=== PATIENT | female | born 1955 | race African-American/Black ===

== ENCOUNTER 2024-03-21 13:53 | Inpatient (IN) | payer BC, OTHER ==
[~2024-03-21] VITALS: Ht 152.4 cm; Wt 54.0 kg
[2024-03-21 14:36] LABS: Basophils # (auto) 0 10 ^3/uL (0-0.2); Basophils % (auto) 0.4 % (0.0-2.0); Eosinophils # (auto) 0.1 10 ^3/uL (0-0.8); Eosinophils % (auto) 0.7 % (0.0-7.0); Hematocrit 38.1 % (36.0-46.0); Hemoglobin 12.9 g/dL (12.2-16.2); Lymphocytes % (auto) 17.1 % (10.0-50.0); Mean Corpuscular Hemoglobin 31.7 pg (28.0-32.0); Mean Corpuscular Volume 93.3 fL (80.0-100.0); Monocytes % (auto) 8.6 % (0.0-12.0); Neutrophils # (auto) 8.5 10 ^3/uL (1.6-8.6); Neutrophils % (auto) 73.2 % (37.0-80.0); Nucleated Red Blood Cells % 0.1 %; Red Blood Cells 4.08 10^6/uL (4.0-5.20); Red Cell Distribution Width 13.4 % (11.8-14.3); White Blood Cell 11.7 10^3/uL (4.4-10.8)
[2024-03-21 14:58] LABS: Alanine Aminotransferase 18 U/L (7-40); Albumin 4.9 g/dL (3.2-4.8); Alkaline Phosphatase 108 U/L (46-116); Anion Gap 10 (5-15); Aspartate Aminotransferase 12 U/L (13-40); BUN/Creatinine Ratio 9.5 (10.0-20.0); Blood Urea Nitrogen 12 mg/dL (9-23); Calcium 11.3 mg/dL (8.7-10.4); Carbon Dioxide 23 mmol/L (20-30); Chloride 101 mmol/L (98-107); Glucose 120 mg/dL (74-106); Potassium 4.4 mmol/L (3.5-5.1); Sodium 134 mmol/L (136-145)
[2024-03-21 14:59] LABS: Bilirubin, Total 0.9 mg/dL (0.2-1.0); Total Protein 7.8 g/dL (5.7-8.2)
[2024-03-21 19:26] LABS: COVID19 ANTIGEN SOFIA FIA NEGATIVE (NEGATIVE)
[2024-03-21] MEDS ORDERED: HYDROcodone-ACET 5/325MG TAB PO PRN (19:45)
[2024-03-21] MEDS ORDERED: ONDANSETRON HCL 4 MG/2 ML VIAL IV PRN (19:45)
[2024-03-21] MEDS ORDERED: MORPHINE SULFATE INJ 2 MG/ml SYRG IV PRN (19:45)
[2024-03-21] MEDS ORDERED: ACETAMINOPHEN 325 MG TAB PO PRN (19:45)
[2024-03-21] MEDS ORDERED: DOCUSATE SOD 100 MG CAP PO PRN (19:45)
[2024-03-21] MEDS ORDERED: NITROGLYCERIN 0.4 MG SL TAB SL PRN (19:45)
[2024-03-21 20:00] VITALS: BP 121/52; PULSE 86; RESP 17; TEMP 98; O2SAT 100
[2024-03-21] MEDS: LACTATED RINGER'S 1,000 ML IV ONE (20:35)
[2024-03-21] MEDS: APIXABAN 5 MG TAB PO SCH (21:57)
[2024-03-21] MEDS: METOPROLOL TARTRATE 25 MG TAB PO SCH (21:57)
[2024-03-21] MEDS: SODIUM CHLOR 0.9% PF (SALINE LOCK) 10ML VIAL/SYR IV SCH (21:58)
[2024-03-21 22:06] VITALS: PULSE 86; RESP 20; O2SAT 96
[2024-03-22] VITALS (10 sets, daily range): BP systolic 93–157; BP diastolic 41–75; PULSE 71–84; RESP 14–19; TEMP 97.6–98; O2SAT 91–98
[2024-03-22] MEDS ORDERED: APIX5TAB PO (01:45)
[2024-03-22] MEDS ORDERED: SACU1TAB PO (01:45)
[2024-03-22] MEDS ORDERED: METO25TA5 PO (01:45)
[2024-03-22] MEDS ORDERED: MAGN400T40 PO (01:48)
[2024-03-22] MEDS ORDERED: BUSP5TAB51 PO (01:48)
[2024-03-22] MEDS ORDERED: SPIR25TA8 PO (01:48)
[2024-03-22 10:59] LABS: Basophils # (auto) 0 10 ^3/uL (0-0.2); Basophils % (auto) 0.4 % (0.0-2.0); Eosinophils # (auto) 0.1 10 ^3/uL (0-0.8); Eosinophils % (auto) 1.5 % (0.0-7.0); Hematocrit 35.5 % (36.0-46.0); Lymphocytes # (auto) 1.9 10 ^3/uL (0.4-5.4); Lymphocytes % (auto) 21.3 % (10.0-50.0); Mean Corpuscular Hemoglobin 32.2 pg (28.0-32.0); Mean Corpuscular Volume 94.8 fL (80.0-100.0); Monocytes # (auto) 0.8 10 ^3/uL (0-1.3); Monocytes % (auto) 9.2 % (0.0-12.0); Neutrophils # (auto) 6.1 10 ^3/uL (1.6-8.6); Neutrophils % (auto) 67.6 % (37.0-80.0); Red Blood Cells 3.74 10^6/uL (4.0-5.20); Red Cell Distribution Width 13.6 % (11.8-14.3)
[2024-03-22 11:04] LABS: Alanine Aminotransferase 14 U/L (7-40); Albumin 4.1 g/dL (3.2-4.8); Alkaline Phosphatase 89 U/L (46-116); Anion Gap 6 (5-15); Aspartate Aminotransferase 9 U/L (13-40); BUN/Creatinine Ratio 12.2 (10.0-20.0); Bilirubin, Total 0.6 mg/dL (0.2-1.0); Blood Urea Nitrogen 14 mg/dL (9-23); Calcium 10.6 mg/dL (8.7-10.4); Carbon Dioxide 26 mmol/L (20-30); Chloride 107 mmol/L (98-107); Glucose 125 mg/dL (74-106); Magnesium 1.9 mg/dL (1.6-2.6); Potassium 4.1 mmol/L (3.5-5.1); Sodium 139 mmol/L (136-145); Total Protein 6.6 g/dL (5.7-8.2)
[2024-03-22] MEDS: PANTOPRAZOLE 40 MG TAB PO ONE (15:06)
[2024-03-22 22:17] LABS: Basophils # (auto) 0 10 ^3/uL (0-0.2); Basophils % (auto) 0.3 % (0.0-2.0); Eosinophils # (auto) 0.2 10 ^3/uL (0-0.8); Eosinophils % (auto) 1.8 % (0.0-7.0); Hematocrit 35.7 % (36.0-46.0); Hemoglobin 11.8 g/dL (12.2-16.2); Lymphocytes # (auto) 2.6 10 ^3/uL (0.4-5.4); Mean Corpuscular Hemoglobin 31.8 pg (28.0-32.0); Mean Corpuscular Hgb Conc. 33.2 g/dL (32.0-36.0); Mean Corpuscular Volume 95.9 fL (80.0-100.0); Monocytes # (auto) 1.1 10 ^3/uL (0-1.3); Monocytes % (auto) 9.5 % (0.0-12.0); Neutrophils # (auto) 7.3 10 ^3/uL (1.6-8.6); Neutrophils % (auto) 65.4 % (37.0-80.0); Nucleated Red Blood Cells % 0.1 %; Red Blood Cells 3.72 10^6/uL (4.0-5.20); Red Cell Distribution Width 13.6 % (11.8-14.3); White Blood Cell 11.2 10^3/uL (4.4-10.8)
[2024-03-23 01:00] VITALS: BP 107/40; PULSE 70; RESP 20; TEMP 97.9; O2SAT 100
[2024-03-23 05:00] VITALS: BP 102/55; PULSE 66; RESP 20; TEMP 97.8; O2SAT 98
[2024-03-23] MEDS: PANTOPRAZOLE 40 MG TAB PO SCH (05:38)
[2024-03-23 06:53] LABS: Alanine Aminotransferase 12 U/L (7-40); Alkaline Phosphatase 92 U/L (46-116); Anion Gap 7 (5-15); Aspartate Aminotransferase 9 U/L (13-40); BUN/Creatinine Ratio 15.8 (10.0-20.0); Bilirubin, Total 0.5 mg/dL (0.2-1.0); Blood Urea Nitrogen 16 mg/dL (9-23); Calcium 10.5 mg/dL (8.7-10.4); Carbon Dioxide 25 mmol/L (20-30); Chloride 107 mmol/L (98-107); Glucose 106 mg/dL (74-106); Magnesium 1.9 mg/dL (1.6-2.6); Potassium 3.8 mmol/L (3.5-5.1); Sodium 139 mmol/L (136-145)
[2024-03-23 06:54] LABS: Total Protein 6.6 g/dL (5.7-8.2)
[2024-03-23 07:06] LABS: Free T4 (Free Thyroxine) 2.07 ng/dL (0.89-1.76)
[2024-03-23 07:07] LABS: T3 Total 1.16 ng/mL (0.60-1.81)
[2024-03-23 07:13] LABS: Basophils # (auto) 0 10 ^3/uL (0-0.2); Basophils % (auto) 0.4 % (0.0-2.0); Eosinophils # (auto) 0.2 10 ^3/uL (0-0.8); Eosinophils % (auto) 2.2 % (0.0-7.0); Hemoglobin 11.9 g/dL (12.2-16.2); Lymphocytes # (auto) 3.4 10 ^3/uL (0.4-5.4); Lymphocytes % (auto) 30.3 % (10.0-50.0); Mean Corpuscular Hemoglobin 32.1 pg (28.0-32.0); Mean Corpuscular Hgb Conc. 34.1 g/dL (32.0-36.0); Mean Corpuscular Volume 94.1 fL (80.0-100.0); Monocytes % (auto) 8.5 % (0.0-12.0); Neutrophils # (auto) 6.5 10 ^3/uL (1.6-8.6); Neutrophils % (auto) 58.6 % (37.0-80.0); Nucleated Red Blood Cells % 0.2 %; Red Blood Cells 3.72 10^6/uL (4.0-5.20); Red Cell Distribution Width 13.7 % (11.8-14.3); White Blood Cell 11.1 10^3/uL (4.4-10.8)
[2024-03-23] MEDS: MAGNESIUM SULFATE 1GM/100ML 100 ML IV ONE (08:09)
[2024-03-23 08:25] VITALS: PULSE 70; PULSE 71; RESP 16; O2SAT 99
[2024-03-23 09:00] VITALS: BP 96/60; PULSE 70; RESP 16; TEMP 97.5; O2SAT 99
[2024-03-23 13:42] VITALS: BP 100/33; PULSE 69; RESP 18; TEMP 98; O2SAT 98
[2024-03-23] MEDS: methIMAzole 5 MG TAB PO SCH (14:23)
[2024-03-23 15:50] VITALS: BP 100/33; PULSE 69; RESP 18; TEMP 98; O2SAT 98
[2024-03-23] MEDS ORDERED: METO25TA5 PO (16:28)
[2024-03-23] MEDS ORDERED: METH5TAB98 PO (16:28)
[2024-03-23] MEDS ORDERED: AUG875T PO (16:28)
== END 2024-03-23 16:20 | disposition home or self-care (01) | DRG 308 ==
LOC: ER 13:53 → OVERFLOW 19:45 → EAST 23:43 → TELE-EAST 03-23 03:44
PROVIDERS: ADMIT Internal Medicine Geriatric Medicine; ATTEND Internal Medicine Geriatric Medicine
DX: I48.20 Chronic atrial fibrillation, unspecified (principal); N17.0 Acute kidney failure with tubular necrosis; I24.9 Acute ischemic heart disease, unspecified; I50.22 Chronic systolic (congestive) heart failure; E05.90 Thyrotoxicosis, unspecified without thyrotoxic crisis or storm; I42.9 Cardiomyopathy, unspecified; Z20.822 Contact with and (suspected) exposure to COVID-19; I11.0 Hypertensive heart disease with heart failure; K21.9 Gastro-esophageal reflux disease without esophagitis; Z90.49 Acquired absence of other specified parts of digestive tract; Z83.3 Family history of diabetes mellitus; Z80.9 Family history of malignant neoplasm, unspecified; Z79.01 Long term (current) use of anticoagulants; Z95.810 Presence of automatic (implantable) cardiac defibrillator
CPT/HCPCS: 36415; 71046; 76536; 80053; 83735; 84439; 84443; 84480; 84484; 85025; 87081; 87426; 93005; 93306; 96360; G0378

== ENCOUNTER 2024-03-31 13:03 | Inpatient (IN) | payer BC ==
[~2024-03-31] VITALS: Ht 152.4 cm; Wt 55.4 kg
[~2024-03-31 13:03] MED LIST: APIX5TAB PO; AUG875T PO; BUSP5TAB51 PO; MAGN400T40 PO; METH5TAB98 PO; METO25TA5 PO; SACU1TAB PO; SPIR25TA8 PO
[2024-03-31 13:34] LABS: Urine Bacteria FEW /hpf (None Seen); Urine Blood Negative /uL (Negative); Urine Budding Yeast OCCASIONAL /hpf (None Seen); Urine Clarity Hazy (Clear); Urine Color Yellow (Yellow); Urine Hyaline Cast FEW /lpf (0 - 2); Urine Protein, UAD TRACE (Negative); Urine Specific Gravity 1.018 (1.001-1.035); Urine Urobilinogen Normal (Negative); Urine WBC 5 /hpf (0 - 5)
[2024-03-31 14:17] VITALS: PULSE 69; RESP 17; O2SAT 98
[2024-03-31 14:26] LABS: Basophils # (auto) 0 10 ^3/uL (0-0.2); Basophils % (auto) 0.3 % (0.0-2.0); Eosinophils # (auto) 0 10 ^3/uL (0-0.8); Eosinophils % (auto) 0.1 % (0.0-7.0); Hematocrit 36.3 % (36.0-46.0); Hemoglobin 12.1 g/dL (12.2-16.2); Lymphocytes # (auto) 1.6 10 ^3/uL (0.4-5.4); Lymphocytes % (auto) 11.9 % (10.0-50.0); Mean Corpuscular Hemoglobin 31.4 pg (28.0-32.0); Mean Corpuscular Hgb Conc. 33.4 g/dL (32.0-36.0); Mean Corpuscular Volume 94.2 fL (80.0-100.0); Monocytes # (auto) 1.1 10 ^3/uL (0-1.3); Monocytes % (auto) 8.2 % (0.0-12.0); Neutrophils # (auto) 10.6 10 ^3/uL (1.6-8.6); Neutrophils % (auto) 79.5 % (37.0-80.0); Platelet Count (auto) 235 10^3/uL (140-450); Red Blood Cells 3.85 10^6/uL (4.0-5.20); Red Cell Distribution Width 13.3 % (11.8-14.3); White Blood Cell 13.4 10^3/uL (4.4-10.8)
[2024-03-31 14:39] LABS: Chloride 99 mmol/L (98-107); Potassium 4.7 mmol/L (3.5-5.1); Sodium 132 mmol/L (136-145)
[2024-03-31] MEDS: cefTRIAXone 1GM/50ML D5W 50 ML IV ONE (14:39)
[2024-03-31] MEDS: SODIUM CHLORIDE 0.9% 1,000 ML IV ONE ×2 (14:39→15:55)
[2024-03-31 14:40] LABS: Anion Gap 10 (5-15); Carbon Dioxide 23 mmol/L (20-30)
[2024-03-31 14:41] LABS: Calcium 10.9 mg/dL (8.7-10.4)
[2024-03-31 14:45] LABS: BUN/Creatinine Ratio 7.7 (10.0-20.0); Blood Urea Nitrogen 14 mg/dL (9-23); Glucose 138 mg/dL (74-106)
[2024-03-31] MEDS ORDERED: DOCUSATE SOD 100 MG CAP PO PRN (16:00)
[2024-03-31] MEDS ORDERED: ACETAMINOPHEN 325 MG TAB PO PRN (16:00)
[2024-03-31] MEDS ORDERED: HYDROmorphone HCL 2 MG/ML VL/or syr IV PRN (16:00)
[2024-03-31] MEDS: metroNIDAZOLE 500MG/100ML 100 ML IV SCH (16:26)
[2024-03-31 18:30] VITALS: BP 101/52; PULSE 73; RESP 20; TEMP 98.6; O2SAT 99
[2024-03-31 20:00] VITALS: O2SAT 99
[2024-03-31 21:00] VITALS: BP 90/50; PULSE 72; RESP 20; TEMP 98; O2SAT 99
[2024-03-31 22:00] VITALS: BP 101/53
[2024-03-31] MEDS: SODIUM CHLOR 0.9% PF (SALINE LOCK) 10ML VIAL/SYR IV SCH (22:00)
[2024-04-01 01:00] VITALS: BP 103/36; PULSE 66; RESP 19; TEMP 98.5; O2SAT 92
[2024-04-01 05:00] VITALS: BP 91/49; PULSE 66; RESP 20; TEMP 97.9; O2SAT 98
[2024-04-01 08:43] VITALS: BP 93/43; PULSE 63; RESP 14; TEMP 98.6; O2SAT 95
[2024-04-01] MEDS: ENOXAPARIN SOD 30 MG/0.3 ML SYRINGE SC SCH (09:00)
[2024-04-01] MEDS: FAMOTIDINE (10MG/ML) 2ML VL IV SCH (09:00)
[2024-04-01] MEDS ORDERED: ENOXAPARIN SOD 40 MG/0.4 ML SYRINGE SC SCH (10:00)
[2024-04-01 13:00] VITALS: BP 91/37; PULSE 62; RESP 14; TEMP 97.9; O2SAT 96
[2024-04-01 16:31] LABS: Basophils # (auto) 0 10 ^3/uL (0-0.2); Basophils % (auto) 0.4 % (0.0-2.0); Eosinophils # (auto) 0.1 10 ^3/uL (0-0.8); Eosinophils % (auto) 1.4 % (0.0-7.0); Hematocrit 32.6 % (36.0-46.0); Hemoglobin 10.8 g/dL (12.2-16.2); Lymphocytes # (auto) 2.4 10 ^3/uL (0.4-5.4); Lymphocytes % (auto) 30.8 % (10.0-50.0); Mean Corpuscular Hemoglobin 31.5 pg (28.0-32.0); Mean Corpuscular Hgb Conc. 33.2 g/dL (32.0-36.0); Mean Corpuscular Volume 94.8 fL (80.0-100.0); Monocytes # (auto) 0.9 10 ^3/uL (0-1.3); Monocytes % (auto) 11.4 % (0.0-12.0); Neutrophils # (auto) 4.4 10 ^3/uL (1.6-8.6); Nucleated Red Blood Cells % 0.1 %; Platelet Count (auto) 219 10^3/uL (140-450); Red Blood Cells 3.43 10^6/uL (4.0-5.20); Red Cell Distribution Width 13.3 % (11.8-14.3); White Blood Cell 7.9 10^3/uL (4.4-10.8)
[2024-04-01 16:48] LABS: Alanine Aminotransferase 20 U/L (7-40); Albumin 3.8 g/dL (3.2-4.8); Alkaline Phosphatase 84 U/L (46-116); Anion Gap 5 (5-15); Aspartate Aminotransferase 14 U/L (13-40); Calcium 9.9 mg/dL (8.7-10.4); Carbon Dioxide 24 mmol/L (20-30); Glucose 108 mg/dL (74-106); Potassium 4.1 mmol/L (3.5-5.1); Sodium 139 mmol/L (136-145)
[2024-04-01 16:50] LABS: Bilirubin, Total 0.3 mg/dL (0.2-1.0); Total Protein 6.2 g/dL (5.7-8.2)
[2024-04-01 16:52] LABS: BUN/Creatinine Ratio 5.4 (10.0-20.0); Blood Urea Nitrogen < 5 mg/dL (9-23); Chloride 110 mmol/L (98-107)
[2024-04-01 17:00] VITALS: BP 101/45; PULSE 66; RESP 14; TEMP 98.3; O2SAT 96
[2024-04-01] MEDS: PANTOPRAZOLE 40 MG/10 ML VIAL INJ IV STA (17:22)
[2024-04-01 21:00] VITALS: BP 105/45; PULSE 71; RESP 20; TEMP 98.4; O2SAT 95
[2024-04-01] MEDS: HYDROcodone-ACET 5/325MG TAB PO PRN (23:00)
[2024-04-01] MEDS: APIXABAN 5 MG TAB PO SCH (23:00)
[2024-04-02 01:00] VITALS: BP 100/50; PULSE 77; RESP 20; TEMP 98.1; O2SAT 96
[2024-04-02 05:00] VITALS: BP 100/49; PULSE 53; RESP 20; TEMP 98.8; O2SAT 97
[2024-04-02 07:10] LABS: Basophils # (auto) 0 10 ^3/uL (0-0.2); Basophils % (auto) 0.4 % (0.0-2.0); Eosinophils # (auto) 0.2 10 ^3/uL (0-0.8); Eosinophils % (auto) 2.5 % (0.0-7.0); Hematocrit 29.9 % (36.0-46.0); Hemoglobin 10.2 g/dL (12.2-16.2); Lymphocytes # (auto) 1.9 10 ^3/uL (0.4-5.4); Lymphocytes % (auto) 29.6 % (10.0-50.0); Mean Corpuscular Volume 94.1 fL (80.0-100.0); Monocytes # (auto) 0.9 10 ^3/uL (0-1.3); Monocytes % (auto) 13.5 % (0.0-12.0); Neutrophils # (auto) 3.5 10 ^3/uL (1.6-8.6); Nucleated Red Blood Cells % 0.1 %; Platelet Count (auto) 213 10^3/uL (140-450); Red Blood Cells 3.17 10^6/uL (4.0-5.20); Red Cell Distribution Width 13.5 % (11.8-14.3); White Blood Cell 6.5 10^3/uL (4.4-10.8)
[2024-04-02 07:28] LABS: Alanine Aminotransferase 17 U/L (7-40); Albumin 3.4 g/dL (3.2-4.8); Alkaline Phosphatase 73 U/L (46-116); Anion Gap 7 (5-15); Aspartate Aminotransferase 12 U/L (13-40); BUN/Creatinine Ratio 6.8 (10.0-20.0); Blood Urea Nitrogen 6 mg/dL (9-23); Calcium 9.9 mg/dL (8.7-10.4); Carbon Dioxide 23 mmol/L (20-30); Chloride 109 mmol/L (98-107); Glucose 83 mg/dL (74-106); Potassium 3.9 mmol/L (3.5-5.1); Sodium 139 mmol/L (136-145)
[2024-04-02 07:29] LABS: Bilirubin, Total 0.3 mg/dL (0.2-1.0); Total Protein 5.6 g/dL (5.7-8.2)
[2024-04-02 08:09] VITALS: RESP 16
[2024-04-02 09:00] VITALS: BP 94/42; PULSE 71; RESP 18; TEMP 97.9; O2SAT 98
[2024-04-02] MEDS: cefTRIAXone 1GM/50ML D5W 50 ML IV SCH (09:46)
[2024-04-02] MEDS: PANTOPRAZOLE 40 MG/10 ML VIAL INJ IV SCH (09:46)
[2024-04-02] MEDS: METOPROLOL TARTRATE 25 MG TAB PO SCH (09:47)
[2024-04-02] MEDS ORDERED: BUSP10TA90 PO (09:55)
[2024-04-02 13:18] VITALS: BP 103/61; PULSE 79; RESP 18; TEMP 98.3; O2SAT 97
[2024-04-02] MEDS: ONDANSETRON HCL 4 MG/2 ML VIAL IV PRN (13:25)
[2024-04-02 14:23] VITALS: BP 103/61; PULSE 71; TEMP 36.8
[2024-04-02] MEDS ORDERED: METR-344 PO (15:18)
[2024-04-02] MEDS ORDERED: ZOFR4T PO (15:18)
[2024-04-02] MEDS ORDERED: CIPR-173 PO (15:18)
== END 2024-04-02 15:40 | disposition home or self-care (01) | DRG 871 ==
LOC: ER 13:03 → OVERFLOW 16:00 → EAST 18:05
PROVIDERS: ADMIT Internal Medicine Pulmonary Disease; ATTEND Internal Medicine Pulmonary Disease
DX: A41.9 Sepsis, unspecified organism (principal); K85.90 Acute pancreatitis without necrosis or infection, unspecified; N17.0 Acute kidney failure with tubular necrosis; N39.0 Urinary tract infection, site not specified; K57.32 Diverticulitis of large intestine without perforation or abscess without bleeding; I50.20 Unspecified systolic (congestive) heart failure; I48.91 Unspecified atrial fibrillation; I11.0 Hypertensive heart disease with heart failure; K29.70 Gastritis, unspecified, without bleeding; E83.52 Hypercalcemia; K21.9 Gastro-esophageal reflux disease without esophagitis; E03.9 Hypothyroidism, unspecified; Z83.3 Family history of diabetes mellitus; Z90.49 Acquired absence of other specified parts of digestive tract; Z95.0 Presence of cardiac pacemaker; Z80.3 Family history of malignant neoplasm of breast
CPT/HCPCS: 36415; 71045; 74176; 80048; 80053; 81001; 83605; 85025; 87081; 87086; 93005; G0378; J2405; J2470; J3490

== ENCOUNTER 2024-04-28 08:36 | Inpatient (IN) | payer BC ==
[~2024-04-28] VITALS: Ht 152.4 cm; Wt 51.2 kg
[~2024-04-28 08:36] MED LIST changes: -AUG875T PO; +BUSP10TA90 PO; -BUSP5TAB51 PO; +CIPR-173 PO; -METH5TAB98 PO; +METR-344 PO; -SPIR25TA8 PO; +ZOFR4T PO
[2024-04-28 09:24] LABS: Basophils # (auto) 0 10 ^3/uL (0-0.2); Basophils % (auto) 0.5 % (0.0-2.0); Eosinophils # (auto) 0.1 10 ^3/uL (0-0.8); Eosinophils % (auto) 0.9 % (0.0-7.0); Hematocrit 38.4 % (36.0-46.0); Hemoglobin 12.9 g/dL (12.2-16.2); Lymphocytes # (auto) 1.4 10 ^3/uL (0.4-5.4); Lymphocytes % (auto) 16.2 % (10.0-50.0); Mean Corpuscular Hemoglobin 32.5 pg (28.0-32.0); Mean Corpuscular Hgb Conc. 33.5 g/dL (32.0-36.0); Mean Corpuscular Volume 96.9 fL (80.0-100.0); Monocytes # (auto) 0.7 10 ^3/uL (0-1.3); Monocytes % (auto) 7.7 % (0.0-12.0); Neutrophils # (auto) 6.4 10 ^3/uL (1.6-8.6); Neutrophils % (auto) 74.7 % (37.0-80.0); Nucleated Red Blood Cells % 0.1 %; Platelet Count (auto) 177 10^3/uL (140-450); Red Blood Cells 3.96 10^6/uL (4.0-5.20); Red Cell Distribution Width 15.7 % (11.8-14.3); White Blood Cell 8.6 10^3/uL (4.4-10.8)
[2024-04-28 09:36] LABS: Urine Bacteria FEW /hpf (None Seen); Urine Blood Negative /uL (Negative); Urine Clarity Turbid (Clear); Urine Color Yellow (Yellow); Urine Hyaline Cast MOD /lpf (0 - 2); Urine Mucus FEW (None Seen); Urine Protein, UAD 1+ (Negative); Urine Specific Gravity 1.009 (1.001-1.035); Urine Urobilinogen Normal (Negative); Urine WBC 9 /hpf (0 - 5); Urine pH 5.5 (5.0-9.0)
[2024-04-28 09:46] LABS: Alanine Aminotransferase 25 U/L (7-40); Albumin 4.6 g/dL (3.2-4.8); Alkaline Phosphatase 76 U/L (46-116); Anion Gap 8 (5-15); Aspartate Aminotransferase 16 U/L (13-40); BUN/Creatinine Ratio 7.3 (10.0-20.0); Bilirubin, Total 1.1 mg/dL (0.2-1.0); Blood Urea Nitrogen 8 mg/dL (9-23); Calcium 11.2 mg/dL (8.7-10.4); Carbon Dioxide 24 mmol/L (20-30); Chloride 100 mmol/L (98-107); Glucose 132 mg/dL (74-106); Potassium 4.2 mmol/L (3.5-5.1); Sodium 132 mmol/L (136-145); Total Protein 7.6 g/dL (5.7-8.2)
[2024-04-28 10:54] LABS: Lipase 37 U/L (12-53)
[2024-04-28 12:17] VITALS: PULSE 97; RESP 16; O2SAT 99
[2024-04-28] MEDS: MECLIZINE HCL 25 MG TAB PO ONE (12:19)
[2024-04-28] MEDS: FUROSEMIDE 20 MG/2 ML VIAL IV ONE (16:49)
[2024-04-28] MEDS: DexAMETHasone SOD PHOS 4 MG/1ML SDV INJ IV ONE (16:49)
[2024-04-28] MEDS ORDERED: HYDROmorphone HCL 2 MG/ML VL/or syr IV PRN (17:15)
[2024-04-28] MEDS ORDERED: ACETAMINOPHEN 325 MG TAB PO PRN (17:15)
[2024-04-28 19:30] VITALS: PULSE 79; RESP 18; O2SAT 97
[2024-04-28] MEDS: APIXABAN 5 MG TAB PO SCH (22:24)
[2024-04-28] MEDS: busPIRone HCL 10 MG TAB PO SCH (22:24)
[2024-04-28] MEDS: SACUBITRIL-VALSARTAN 24mg/26mg TAB PO SCH (22:24)
[2024-04-28] MEDS: SODIUM CHLOR 0.9% PF (SALINE LOCK) 10ML VIAL/SYR IV SCH (22:24)
[2024-04-29] VITALS (9 sets, daily range): BP systolic 82–139; BP diastolic 44–70; PULSE 77–113; RESP 15–19; TEMP 97.7–98; O2SAT 94–100
[2024-04-29] MEDS: SODIUM CHLORIDE 0.9% 500 ML IV ONE (00:34)
[2024-04-29] MEDS: MIDODRINE HCL 10 MG TAB PO ONE (00:34)
[2024-04-29 06:42] LABS: Basophils # (auto) 0 10 ^3/uL (0-0.2); Basophils % (auto) 0.2 % (0.0-2.0); Eosinophils # (auto) 0 10 ^3/uL (0-0.8); Eosinophils % (auto) 0.1 % (0.0-7.0); Hematocrit 36.7 % (36.0-46.0); Hemoglobin 12.7 g/dL (12.2-16.2); Lymphocytes # (auto) 0.8 10 ^3/uL (0.4-5.4); Lymphocytes % (auto) 11.5 % (10.0-50.0); Mean Corpuscular Hemoglobin 33.4 pg (28.0-32.0); Mean Corpuscular Hgb Conc. 34.6 g/dL (32.0-36.0); Mean Corpuscular Volume 96.6 fL (80.0-100.0); Monocytes # (auto) 0.5 10 ^3/uL (0-1.3); Monocytes % (auto) 6.7 % (0.0-12.0); Neutrophils % (auto) 81.5 % (37.0-80.0); Nucleated Red Blood Cells % 0.1 %; Platelet Count (auto) 168 10^3/uL (140-450); Red Cell Distribution Width 15.5 % (11.8-14.3); White Blood Cell 7.3 10^3/uL (4.4-10.8)
[2024-04-29 06:52] LABS: Alanine Aminotransferase 15 U/L (7-40); Albumin 4.2 g/dL (3.2-4.8); Alkaline Phosphatase 73 U/L (46-116); Anion Gap 7 (5-15); Aspartate Aminotransferase 11 U/L (13-40); BUN/Creatinine Ratio 14.8 (10.0-20.0); Blood Urea Nitrogen 13 mg/dL (9-23); Carbon Dioxide 23 mmol/L (20-30); Chloride 107 mmol/L (98-107); Glucose 132 mg/dL (74-106); Sodium 137 mmol/L (136-145)
[2024-04-29 06:53] LABS: Bilirubin, Total 0.7 mg/dL (0.2-1.0)
[2024-04-29] MEDS: METOPROLOL TARTRATE 25 MG TAB PO SCH (08:48)
[2024-04-29] MEDS ORDERED: ENOXAPARIN SOD 40 MG/0.4 ML SYRINGE SC SCH (10:00)
[2024-04-29] MEDS: SODIUM CHLORIDE 0.9% 250 ML IV ONE (12:00)
[2024-04-30] VITALS (8 sets, daily range): BP systolic 90–112; BP diastolic 43–56; PULSE 70–90; RESP 16–19; TEMP 97.4–98.1; O2SAT 96–97
[2024-04-30 07:43] LABS: Basophils # (auto) 0 10 ^3/uL (0-0.2); Basophils % (auto) 0.4 % (0.0-2.0); Eosinophils # (auto) 0.1 10 ^3/uL (0-0.8); Eosinophils % (auto) 1.3 % (0.0-7.0); Hematocrit 34.8 % (36.0-46.0); Hemoglobin 12.1 g/dL (12.2-16.2); Lymphocytes # (auto) 3.1 10 ^3/uL (0.4-5.4); Lymphocytes % (auto) 30.1 % (10.0-50.0); Mean Corpuscular Hemoglobin 33.3 pg (28.0-32.0); Mean Corpuscular Hgb Conc. 34.7 g/dL (32.0-36.0); Mean Corpuscular Volume 95.8 fL (80.0-100.0); Monocytes # (auto) 0.8 10 ^3/uL (0-1.3); Monocytes % (auto) 7.3 % (0.0-12.0); Neutrophils # (auto) 6.3 10 ^3/uL (1.6-8.6); Neutrophils % (auto) 60.9 % (37.0-80.0); Nucleated Red Blood Cells % 0.3 %; Platelet Count (auto) 156 10^3/uL (140-450); Red Blood Cells 3.63 10^6/uL (4.0-5.20); Red Cell Distribution Width 15.7 % (11.8-14.3); White Blood Cell 10.4 10^3/uL (4.4-10.8)
[2024-04-30 07:54] LABS: Alanine Aminotransferase 13 U/L (7-40); Alkaline Phosphatase 64 U/L (46-116); Anion Gap 6 (5-15); Aspartate Aminotransferase 11 U/L (13-40); BUN/Creatinine Ratio 14.1 (10.0-20.0); Bilirubin, Total 0.5 mg/dL (0.2-1.0); Blood Urea Nitrogen 13 mg/dL (9-23); Calcium 10.4 mg/dL (8.7-10.4); Carbon Dioxide 25 mmol/L (20-30); Chloride 108 mmol/L (98-107); Glucose 106 mg/dL (74-106); Magnesium 1.8 mg/dL (1.6-2.6); Potassium 4.1 mmol/L (3.5-5.1); Sodium 139 mmol/L (136-145); Total Protein 6.4 g/dL (5.7-8.2)
[2024-04-30] MEDS: AMIODARONE HCL 200 MG TAB PO SCH (12:53)
[2024-04-30] MEDS: HYDROcodone-ACET 5/325MG TAB PO PRN (19:56)
[2024-04-30] MEDS: MAALOX PLUS or MAALOX 30 ML PO ONE (20:24)
[2024-05-01] VITALS (10 sets, daily range): BP systolic 94–116; BP diastolic 48–82; PULSE 77–98; RESP 14–20; TEMP 93.2–98.1; O2SAT 92–98
[2024-05-01 07:14] LABS: Basophils # (auto) 0 10 ^3/uL (0-0.2); Basophils % (auto) 0.4 % (0.0-2.0); Eosinophils # (auto) 0.2 10 ^3/uL (0-0.8); Eosinophils % (auto) 1.5 % (0.0-7.0); Hematocrit 37.5 % (36.0-46.0); Hemoglobin 12.7 g/dL (12.2-16.2); Lymphocytes # (auto) 1.8 10 ^3/uL (0.4-5.4); Lymphocytes % (auto) 16.1 % (10.0-50.0); Monocytes # (auto) 0.6 10 ^3/uL (0-1.3); Monocytes % (auto) 5.6 % (0.0-12.0); Neutrophils # (auto) 8.6 10 ^3/uL (1.6-8.6); Neutrophils % (auto) 76.4 % (37.0-80.0); Nucleated Red Blood Cells % 0.1 %; Platelet Count (auto) 161 10^3/uL (140-450); Red Blood Cells 3.86 10^6/uL (4.0-5.20); Red Cell Distribution Width 15.9 % (11.8-14.3); White Blood Cell 11.2 10^3/uL (4.4-10.8)
[2024-05-01 07:29] LABS: Alanine Aminotransferase 13 U/L (7-40); Albumin 4.2 g/dL (3.2-4.8); Alkaline Phosphatase 67 U/L (46-116); Anion Gap 5 (5-15); Aspartate Aminotransferase 11 U/L (13-40); BUN/Creatinine Ratio 11.8 (10.0-20.0); Blood Urea Nitrogen 11 mg/dL (9-23); Calcium 10.9 mg/dL (8.7-10.4); Carbon Dioxide 27 mmol/L (20-30); Chloride 106 mmol/L (98-107); Glucose 105 mg/dL (74-106); Magnesium 1.9 mg/dL (1.6-2.6); Potassium 4.1 mmol/L (3.5-5.1); Sodium 138 mmol/L (136-145)
[2024-05-01 07:30] LABS: Bilirubin, Total 0.5 mg/dL (0.2-1.0); Total Protein 6.8 g/dL (5.7-8.2)
[2024-05-01] MEDS: ONDANSETRON HCL 4 MG/2 ML VIAL IV PRN (08:35)
[2024-05-01] MEDS: DOCUSATE SOD 100 MG CAP PO PRN (08:41)
[2024-05-01] MEDS: CARVEDILOL 3.125 MG TAB PO SCH (09:54)
[2024-05-01] MEDS: AMIODARONE 450mg/250ml AE 250 ML IV SCH (12:28)
[2024-05-01] MEDS: MAALOX PLUS or MAALOX 30 ML PO PRN (20:16)
[2024-05-01] MEDS ORDERED: MORPHINE SULFATE INJ 2 MG/ml SYRG IV PRN (21:45)
[2024-05-02] VITALS (8 sets, daily range): BP systolic 85–114; BP diastolic 40–60; PULSE 71–107; RESP 14–20; TEMP 97.5–98.2; O2SAT 95–99
[2024-05-02 06:52] LABS: Basophils # (auto) 0 10 ^3/uL (0-0.2); Basophils % (auto) 0.3 % (0.0-2.0); Eosinophils # (auto) 0.1 10 ^3/uL (0-0.8); Eosinophils % (auto) 2.2 % (0.0-7.0); Hematocrit 36.9 % (36.0-46.0); Hemoglobin 12.4 g/dL (12.2-16.2); Lymphocytes # (auto) 1.3 10 ^3/uL (0.4-5.4); Lymphocytes % (auto) 19.8 % (10.0-50.0); Mean Corpuscular Hemoglobin 33.1 pg (28.0-32.0); Mean Corpuscular Hgb Conc. 33.7 g/dL (32.0-36.0); Mean Corpuscular Volume 98.3 fL (80.0-100.0); Monocytes # (auto) 0.6 10 ^3/uL (0-1.3); Monocytes % (auto) 9.5 % (0.0-12.0); Neutrophils # (auto) 4.3 10 ^3/uL (1.6-8.6); Neutrophils % (auto) 68.2 % (37.0-80.0); Nucleated Red Blood Cells % 0.3 %; Platelet Count (auto) 142 10^3/uL (140-450); Red Blood Cells 3.76 10^6/uL (4.0-5.20); Red Cell Distribution Width 15.8 % (11.8-14.3); White Blood Cell 6.3 10^3/uL (4.4-10.8)
[2024-05-02 07:09] LABS: Alanine Aminotransferase 23 U/L (7-40); Albumin 3.9 g/dL (3.2-4.8); Alkaline Phosphatase 80 U/L (46-116); Anion Gap 3 (5-15); Aspartate Aminotransferase 20 U/L (13-40); Blood Urea Nitrogen 10 mg/dL (9-23); Calcium 10.6 mg/dL (8.7-10.4); Carbon Dioxide 28 mmol/L (20-30); Chloride 105 mmol/L (98-107); Glucose 111 mg/dL (74-106); Potassium 4.5 mmol/L (3.5-5.1); Sodium 136 mmol/L (136-145)
[2024-05-02 07:10] LABS: Bilirubin, Total 0.7 mg/dL (0.2-1.0); Total Protein 6.3 g/dL (5.7-8.2)
[2024-05-02] MEDS: MAGNESIUM OXIDE 400 MG TAB PO SCH (12:58)
[2024-05-02] MEDS: AMIODARONE HCL 200 MG TAB PO SCH (22:13)
[2024-05-02] MEDS: AMIODARONE 450mg/250ml AE 250 ML IV SCH (23:00)
[2024-05-03 01:00] VITALS: BP 103/45; PULSE 88; RESP 16; TEMP 97.5; O2SAT 98
[2024-05-03 05:00] VITALS: BP 100/54; PULSE 81; RESP 16; TEMP 97.8; O2SAT 99
[2024-05-03 06:28] LABS: Basophils # (auto) 0 10 ^3/uL (0-0.2); Basophils % (auto) 0.4 % (0.0-2.0); Eosinophils # (auto) 0.2 10 ^3/uL (0-0.8); Eosinophils % (auto) 3.3 % (0.0-7.0); Hematocrit 36.9 % (36.0-46.0); Hemoglobin 12.6 g/dL (12.2-16.2); Lymphocytes # (auto) 1.8 10 ^3/uL (0.4-5.4); Lymphocytes % (auto) 25.4 % (10.0-50.0); Mean Corpuscular Hemoglobin 32.9 pg (28.0-32.0); Mean Corpuscular Hgb Conc. 34.1 g/dL (32.0-36.0); Mean Corpuscular Volume 96.6 fL (80.0-100.0); Monocytes # (auto) 0.7 10 ^3/uL (0-1.3); Monocytes % (auto) 10.4 % (0.0-12.0); Neutrophils # (auto) 4.3 10 ^3/uL (1.6-8.6); Neutrophils % (auto) 60.5 % (37.0-80.0); Nucleated Red Blood Cells % 0.2 %; Platelet Count (auto) 155 10^3/uL (140-450); Red Blood Cells 3.82 10^6/uL (4.0-5.20); Red Cell Distribution Width 15.5 % (11.8-14.3); White Blood Cell 7.2 10^3/uL (4.4-10.8)
[2024-05-03 06:31] LABS: Alanine Aminotransferase 15 U/L (7-40); Albumin 4.2 g/dL (3.2-4.8); Alkaline Phosphatase 92 U/L (46-116); Anion Gap 4 (5-15); Aspartate Aminotransferase 12 U/L (13-40); BUN/Creatinine Ratio 11.2 (10.0-20.0); Blood Urea Nitrogen 10 mg/dL (9-23); Calcium 10.7 mg/dL (8.7-10.4); Carbon Dioxide 27 mmol/L (20-30); Chloride 107 mmol/L (98-107); Glucose 108 mg/dL (74-106); Magnesium 2.3 mg/dL (1.6-2.6); Potassium 4.1 mmol/L (3.5-5.1); Sodium 138 mmol/L (136-145)
[2024-05-03 06:32] LABS: Bilirubin, Total 0.4 mg/dL (0.2-1.0); Total Protein 6.9 g/dL (5.7-8.2)
[2024-05-03 08:00] VITALS: PULSE 76
[2024-05-03 08:57] VITALS: BP 93/41; PULSE 78; RESP 20; TEMP 98.2; O2SAT 97
[2024-05-03 13:00] VITALS: BP 115/47; PULSE 79; RESP 20; TEMP 98.4; O2SAT 98
[2024-05-03] MEDS ORDERED: AMIO200T33 PO ×2 (13:08→13:09)
[2024-05-03] MEDS ORDERED: PANT40TA2 PO (13:09)
[2024-05-03 15:22] VITALS: BP 93/41; PULSE 78; TEMP 36.9
== END 2024-05-03 16:00 | disposition home or self-care (01) | DRG 308 ==
LOC: ER 08:36 → TELE 17:23 → TELE-EAST 04-29 03:20
PROVIDERS: ADMIT Internal Medicine; ATTEND Nurse Practitioner Acute Care
PROC: 4B02XTZ Measurement of Cardiac Defibrillator, External Approach (ICD-10-PCS; principal; 2024-05-02)
DX: I47.20 Ventricular tachycardia, unspecified (principal); I50.23 Acute on chronic systolic (congestive) heart failure; E11.21 Type 2 diabetes mellitus with diabetic nephropathy; E83.52 Hypercalcemia; I48.91 Unspecified atrial fibrillation; G43.909 Migraine, unspecified, not intractable, without status migrainosus; E03.9 Hypothyroidism, unspecified; E78.5 Hyperlipidemia, unspecified; I11.0 Hypertensive heart disease with heart failure; F41.9 Anxiety disorder, unspecified; Z83.3 Family history of diabetes mellitus; Z90.49 Acquired absence of other specified parts of digestive tract; Z95.0 Presence of cardiac pacemaker; Z80.3 Family history of malignant neoplasm of breast; Z82.0 Family history of epilepsy and other diseases of the nervous system
CPT/HCPCS: 36415; 70450; 71045; 74176; 80053; 81001; 82962; 83690; 83735; 84439; 84443; 84484; 85025; 93005; 93886; G0378; J1100; J2405

== ENCOUNTER 2025-07-05 19:02 | Emergency (ER) | payer BC, MEDICARE ==
[~2025-07-05] VITALS: Ht 152.4 cm; Wt 50.0 kg
[~2025-07-05 19:02] MED LIST changes: +AMIO200T33 PO; +BUSP15TA60 PO; +FLUT50SP NAS; +HYDR1CAP27 PO; +METO25TA93 PO; +PANT40TA2 PO; +SPIR25TA8 PO; +VALS1TAB56 PO
[2025-07-05 19:39] LABS: Hematocrit 39.2 % (36.0-46.0); Hemoglobin 13.3 g/dL (12.2-16.2); Mean Corpuscular Hemoglobin 32.4 pg (28.0-32.0); Mean Corpuscular Volume 95.8 fL (80.0-100.0); Nucleated Red Blood Cells % 0.1 %
[2025-07-05 19:46] LABS: Potassium 4.0 mmol/L (3.5-5.1); Sodium 139 mmol/L (136-145)
[2025-07-05 19:47] LABS: Anion Gap 11 (5-15); Carbon Dioxide 21 mmol/L (20-31)
[2025-07-05 19:52] LABS: BUN/Creatinine Ratio 14.4 (10.0-20.0); Blood Urea Nitrogen 20 mg/dL (9-23)
[2025-07-05 19:55] LABS: Calcium 10.8 mg/dL (8.7-10.4); Chloride 107 mmol/L (98-107); Glucose 149 mg/dL (74-106)
--- NOTE | 2025-07-05 20:12 | DVH ---
CHEST RADIOGRAPH Indication: PALPITATIONS Technique: 1 view Comparison: None available FINDINGS: Lines and Tubes: Left implanted cardiac pacer with biventricular leads projecting in expected position. Lungs/Pleura: No focal consolidation, pleural effusion or pneumothorax. Relative apical lucency of both lungs. Cardiomediastinum: Upper normal heart size. Central pulmonary vascular prominence. Aortic atherosclerosis. Other: No acute osseous abnormality. Right upper quadrant surgical clips. IMPRESSION: No acute cardiopulmonary abnormality. Suspected emphysema.
--- NOTE | 2025-07-05 20:31 | ED.PDOC ---
HPI Comments HPI: 69-year-old female who came to ER for palpitations. Patient does have history of AFib, does take her medications regularly, Eliquis, metoprolol. With the past week she has been experiencing palpitations that involves her left chest and left abdomen. Patient already has a special education science teacher to follow up with. Past Medical History: AFib, diverticulitis Past Surgical History: Pacemaker Social History: Denies Patient HPI: Poor Historian. REVIEW OF SYSTEMS: CONSTITUTIONAL: Denies acute: fever, diaphoresis, chills, generalized weakness. HEAD: Denies acute: headache, photophobia Eyes: Denies acute: Double vision, vision loss, eye pain, eye discharge. EARS: Denies acute: tinnitus, hearing loss, ear discharge, ear pain, THROAT: Denies acute: sore throat, swelling, difficulty swallowing , pain with swallowing, change in voice. NECK: Denies acute: neck pain, neck swelling, stiff neck. HEART: Denies acute : chest pain LUNGS: Denies acute: SOB, wheezing, cough, hemoptysis ABDOMEN: Denies acute: abdominal pain, Nausea, Vomiting, diarrhea, melena , hematemesis, hematochezia SKIN: Denies acute: rash, redness, lesions, itchiness. EXTREMITIES: Denies acute: calf pain, numbness, tingling, weakness, denies pain in extremity. Denies acute: Low back pain. Neuro: Denies acute: focal neurological deficit, motor or sensory focal neurological deficit, tremors, seizure like activity, confusion, dizziness, change in mental status, loss of bowel or bladder function, cauda equina like symptoms. : Denies acute: dysuria, hematuria, flank pain, increase in urinary frequency. PSYCH: Denies acute: hallucination, suicidal ideation, homicidal ideation. FEMALE: Denies acute: abnormal vaginal bleeding, foul odor, unusual discharge. PHYSICAL EXAM: General: ----no----acute distress, awake and alert. Head: normocephalic, atraumatic. No raccoon's eyes, no christianson sign. Neck: supple, trachea is midline, no swelling. Throat: Normal phonation. Eyes:, no erythema, no purulent discharge, no proptosis, no icterus. Heart: regular rate, regular rhythm, no significant murmur appreciated. Lungs: no apparent respiratory distress, Able to speak in full sentences. No wheezing, no rhonchi, no crackles. No stridors Clear to auscultation bilaterally. Abdomen: non tender to palpation, non distended, soft, no guarding, no rebound, + bowel sounds. Neuro: Awake, Alert, oriented to name, self, situation, follows commands GCS=15. Speech is normal. Skin: no petechia, no purpura, no cyanosis, non-pale, not jaundice. Lower extremities: --no - Pitting edema no deformity, no focal swelling, no calf TTP. Makes eye contact. moves all four extremities. Face: no apparent facial droop. Ambulating in the ED independently. ED COURSE: DISCLAIMER: This medical document was created using an electronic medical record system with voice recognition software and computerized dictation system. Although this document has been carefully reviewed, there might still be some phonetic and typographical errors. Occasional wrong-word or "sound-alike" substitutions may have occurred due to the inherent limitations of voice recognition software. These areas are purely typographical due to imperfections of the software programs and do not reflect any compromise in the patient's medical care. Please read the chart carefully and recognize, using context, where these substitutions have occurred. Chief Complaint: Palpitations Time Seen by MD: 20:40 Primary Care Provider: AVINASH Reviewed Notes: Nurses Notes, Allergies Allergies: Coded Allergies: NO KNOWN ALLERGIES (Unverified , 03/21/24) Home Meds Active Scripts Pantoprazole Sodium Sesquihydr (Protonix) 40 Mg Tab, 40 MG PO DAILY, #30 TAB Prov:ROSA MARIA HIGGINBOTHAM RENTAL MANAGEMENT TRAINEE 05/03/24 Amiodarone Hcl (Amiodarone Hcl) 200 Mg Tab, 400 MG PO BID for 7 Days, #28 TAB Amiodarone 400 mg p.o. twice a day x7 days then 400 mg p.o. daily Prov:ROSA MARIA HIGGINBOTHAM RENTAL MANAGEMENT TRAINEE 05/03/24 Amiodarone Hcl (Amiodarone Hcl) 200 Mg Tab, 400 MG PO DAILY for 30 Days, #60 TAB 1 Refill Please see other order for amiodarone. Patient was to receive one week course of 400 mg p.o. twice a day for seven days then followed by 400 daily Prov:ROSA MARIA HIGGINBOTHAM RENTAL MANAGEMENT TRAINEE 05/03/24 Ondansetron Odt 4MG Tab (ZOFRAN PO) 4 Mg Tb, 4 MG PO Q4HP PRN for 5 Days, #25 T AB ODT TAB-DISSOLVE IN MOUTH, THEN SWALLOW Prov:IGNACIA ENGEL RESIDENT 04/02/24 Metronidazole (Flagyl) 500 Mg Tab, 500 MG PO TID for 7 Days, #21 TAB Prov:IGNACIA ENGEL RESIDENT 04/02/24 Ciprofloxacin Hcl (Cipro) 500 Mg Tab, 1 TAB PO BID for 7 Days, #14 TAB Prov:IGNACIA ENGEL RESIDENT 04/02/24 Metoprolol Tartrate (Metoprolol Tartrate) 25 Mg Tab, 25 MG PO DAILY for 30 Days, #30 MG 2 Refills Prov:ROXANA WU RESIDENT 03/23/24 Reported Medications Buspirone Hcl (Buspirone Hcl) 10 Mg Tab, 10 MG PO Q12HR for 30 Days, MG 04/02/24 Magnesium Oxide (MAGNESIUM OXIDE) 400 Mg Tab, 1 TAB PO DAILY, #30 TAB 5 Refills 03/22/24 Sacubitril-Valsartan (Entresto 24-26 mg) 1 Tab Tab, 1 TAB PO BID, TAB 03/22/24 Apixaban Base (ELIQUIS) 5 Mg Tab, 5 MG PO BID, TAB 03/22/24 Information Source: Patient Mode of Arrival: Ambulatory Past Medical History PAST MEDICAL HISTORY: AFIB, Anxiety, CHF, DM, HTN, Thyroid Surgical History: Cholecystectomy, Pacemaker SEALING MACHINE OPERATOR History: Denies all SEALING MACHINE OPERATOR Hx Family History Family History: Family hx of DM, Family hx of Cancer Social History Smoker: Non-Smoker Alcohol: Denies ETOH Use Drugs: Denies Drug Use Lives In: Home EKG EKG : Pulse Rate (adult): 93 Cardiac Rhythm: Paced Was a procedure done? Was a procedure done?: No X-Ray, Labs, Meds, VS Vital Signs Date Time Temp Pulse Resp B/P (MAP) Pulse Ox O2 Delivery O2 Flow Rate FiO2 07/05/25 21:24 98.4 56 18 86/55 (65) 96 98.4 07/05/25 20:31 93 07/05/25 19:12 93 07/05/25 19:04 98.4 144 20 116/56 98 98.4 Lab Test 07/05/25 21:29 07/05/25 20:40 07/05/25 19:29 Range/Units Urine Color Light-yellow Yellow Urine Clarity Clear Clear Urine pH 5.0 5.0-9.0 Urine Specific [place] 1.009 1.001-1.035 Urine Protein Negative Negative Urine Ketones Negative Negative Urine Blood Negative Negative /uL Urine Nitrite Negative Negative Urine Bilirubin Negative Negative Urine Urobilinogen Normal Negative mg/dL Urine Leukocyte Esterase Negative Negative /uL Urine RBC None seen 0 - 4 /hpf Urine Microscopic WBC 1 0-5 /HPF Urine Squamous Epithelial Cells Few <5 /hpf Urine Bacteria None seen None Seen /hpf Urine Glucose 4+ H Normal mg/dL Troponin I High Sensitivity 7 5 </=34 ng/L White Blood Count 9.6 4.4-10.8 10^3/uL Red Blood Count 4.09 4.0-5.20 10^6/uL Hemoglobin 13.3 12.2-16.2 g/dL Hematocrit 39.2 36.0-46.0 % Mean Corpuscular Volume 95.8 80.0-100.0 fL Mean Corpuscular Hemoglobin 32.4 H 28.0-32.0 pg Mean Corpuscular Hemoglobin Concent 33.9 32.0-36.0 g/dL Red Cell Distribution Width 14.8 H 11.8-14.3 % Platelet Count 196 140-450 10^3/uL Mean Platelet Volume 9.7 6.9-10.8 fL Neutrophils (%) (Auto) 62.0 37.0-80.0 % Lymphocytes (%) (Auto) 27.7 10.0-50.0 % Monocytes (%) (Auto) 7.8 0.0-12.0 % Eosinophils (%) (Auto) 1.8 0.0-7.0 % Basophils (%) (Auto) 0.7 0.0-2.0 % Neutrophils # (Auto) 6.0 1.6-8.6 10 ^3/uL Lymphocytes # (Auto) 2.7 0.4-5.4 10 ^3/uL Monocytes # (Auto) 0.8 0-1.3 10 ^3/uL Eosinophils # (Auto) 0.2 0-0.8 10 ^3/uL Basophils # (Auto) 0.1 0-0.2 10 ^3/uL Nucleated Red Blood Cells 0.1 % Sodium Level 139 136-145 mmol/L Potassium Level 4.0 3.5-5.1 mmol/L Chloride Level 107 98-107 mmol/L Carbon Dioxide Level 21 20-31 mmol/L Anion Gap 11 5-15 Blood Urea Nitrogen 20 9-23 mg/dL Creatinine 1.39 H 0.550-1.02 mg/dL Glomerular Filtration Rate Calc 41 >90 mL/min BUN/Creatinine Ratio 14.4 10.0-20.0 Serum Glucose 149 H 74-106 mg/dL Calcium Level 10.8 H 8.7-10.4 mg/dL Magnesium Level 2.0 1.6-2.6 mg/dL [place] [id number] Ph: [phone] DIAGNOSTIC IMAGING Diagnostic Imaging Report : [id number] Signed PATIENT: BEREKET GARCIA ACCT: [id number] UNIT: [id number] : 1955 LOC: ER ROOM / BED: / AGE / SEX: 69 / F ADM STATUS: REG ER SERVICE 06 ORDERING PHYSICIAN: BRITTNY TREVIÑO DO PROCEDURE(s): CXR1 - CHEST XRAY 1 VIEW REASON: PALPITATIONS ORDER NUMBER(s): [id number], ACCESSION NUMBER(s): [id number] CHEST RADIOGRAPH Indication: PALPITATIONS Technique: 1 view Comparison: None available FINDINGS: Lines and Tubes: Left implanted cardiac pacer with biventricular leads projecting in expected position. Lungs/Pleura: No focal consolidation, pleural effusion or pneumothorax. Relative apical lucency of both lungs. Cardiomediastinum: Upper normal heart size. Central pulmonary vascular prominence. Aortic atherosclerosis. Other: No acute osseous abnormality. Right upper quadrant surgical clips. IMPRESSION: No acute cardiopulmonary abnormality. Suspected emphysema. ATED BY: KAMRON DUNN MD DICTATED DATE/TIME: 07/05/252009 SIGNED BY: KAMRON DUNN MD SIGNED DATE/TIME: 07/05/252009 CC: Time of 1ST Reevaluation: 20:20 Reevaluation 1ST: Unchanged Patient Education/Counseling: Diagnosis, Treatment Family Education/Counseling: No Family Present SEPSIS Sepsis Screen Date sepsis recognized/suspect: Jul 05, 2025 Time Sepsis recognized/suspect: 1904 Recent Procedure: No On Antibiotic Therapy: No Respiratory Rate >20: No Heart Rate >90: Yes Temp<36 C (96.8 F) or >38.3 C: No SBP <90 or MAP <65 mmHG: No New Acute Mental Status Change: No Is the patient on CPAP, BIPAP,: No Physician Orders Electrocardigram (07/05/25 19:07) Chest Xray 1 View (07/05/25 19:07) Electrocardigram (07/05/25 20:07) Electrocardigram (07/05/25 22:07) Vital Signs Date Time Temp Pulse Resp B/P (MAP) Pulse Ox O2 Delivery O2 Flow Rate FiO2 07/05/25 21:24 98.4 56 18 86/55 (65) 96 98.4 07/05/25 20:31 93 07/05/25 19:12 93 07/05/25 19:04 98.4 144 20 116/56 98 98.4 Laboratory Tests Test 07/05/25 19:29 White Blood Count 9.6 10^3/uL (4.4-10.8) Departure 1 Departure Time of Disposition: 00:09 Impression: Primary Impression: Palpitations Disposition: 01 HOME / SELF CARE / HOMELESS Condition: Stable Additional Instructions: Additional instructions: Please read all instructions provided in this packet carefully. You MUST follow-up with your primary care/family doctor in 1 to 2 days. If you are unable to see your primary care/family doctor, please return to our emergency room for re-assessment and re-evaluation in 1 to 2 days. Return to the emergency room here in our facility or to the nearest ER [facility] if your symptoms change or worsen. CONSULTATIONS: you MUST Follow-up for consultation as soon as possible with: Dr. govea in 1-2 days. Please call for appointment. You MUST call the consultants office yourself to make an appointment. You may need to arrange that through your insurance and/or your primary/family doctor. If you are unable to see the technology methodology consultant in 1 to 2 days, you must return to our emergency room (or any other ER of your choice) for re-assessment and re- evaluation. Adequate fluid hydration. Although you have been discharged from the Emergency Department, this does not mean that you have a "clean bill of health". No definitive diagnosis for your symptoms has been made today. It is possible that you are in the process of developing a serious illness. This is why you must return to the ED without fail if any new or worsening symptoms develop. Monitoring blood pressure at home at least 3 times a day. Discharged With: Self Critical Care Note Critical Care Time?: No Heart Score Heart Score: Heart Score Response (Comments) Value History Moderate Suspicious 1 EKG Repolarization Disturb 1 Age >65 2 Risk Factors 1 or 2 risk factors 1 Troponin Normal limit 0 Total 5 I personally scribed for BRITTNY TREVIÑO DO ([email or web address]) on 07/05/25 at 20:31. Electronically submitted by Benny Pastrana ([email or web address]). I personally scribed for BRITTNY TREVIÑO DO ([email or web address]) on 07/05/25 at 20:41. Electronically submitted by Benny Pastrana ([email or web address]). I personally scribed for BRITTNY TREVIÑO DO ([email or web address]) on 07/05/25 at 20:54. Electronically submitted by Benny Pastrana ([email or web address]). BRITTNY TREVIÑO DO Jul 05, 2025 20:31
[2025-07-05 23:53] LABS: Urine Protein, UAD Negative (Negative)
[2025-07-06 00:18] VITALS: BP 106/75; PULSE 60; RESP 18; TEMP 98.1; O2SAT 97
--- NOTE | 2025-07-08 09:30 | ECG ---
[facility] Test Date: 2025-07-05 Test Time: 19:11:18 Pat Name: BEREKET GARCIA Department: ED Room: Gender: F Garage Hand: ALEKSANDR : 1955 Requested By: BRITTNY TREVIÑO Order Number: [id number] Reading MD: Edilson Cline Measurements Intervals [place] Rate: 99 P: 0 LA: 132 QRS: 112 QRSD: 253 T: -63 QT: 462 QTc: 593 Interpretive Statements A-V dual-paced complexes w/ some inhibition No further analysis attempted due to paced rhythm Electronically Signed On 07-09-2025 17:46:23 PST by Edilson Cline Please click the below link to view image of tracing.
--- NOTE | 2025-07-08 09:31 | ECG ---
[facility] Test Date: 2025-07-05 Test Time: 19:12:27 Pat Name: BEREKET GARCIA Department: ED Room: Gender: F Auto Service Advisor: [place] : 1955 Requested By: BRITTNY TREVIÑO Order Number: [id number] Reading MD: Edilson Cline Measurements Intervals [place] Rate: 93 P: 0 FL: 96 QRS: 167 QRSD: 280 T: 98 QT: 600 QTc: 747 Interpretive Statements A-V dual-paced complexes w/ some inhibition No further analysis attempted due to paced rhythm Electronically Signed On 07-09-2025 17:46:28 PST by Edilson Cline Please click the below link to view image of tracing.
== END 2025-07-06 00:52 | disposition home or self-care (01) ==
LOC: ER 19:02
DX: R00.2 Palpitations (principal); I11.0 Hypertensive heart disease with heart failure; I50.9 Heart failure, unspecified; E11.9 Type 2 diabetes mellitus without complications; F41.9 Anxiety disorder, unspecified; I48.91 Unspecified atrial fibrillation; Z79.899 Other long term (current) drug therapy; Z95.0 Presence of cardiac pacemaker; Z90.49 Acquired absence of other specified parts of digestive tract; Z79.01 Long term (current) use of anticoagulants
CPT/HCPCS: 36415; 71045; 80048; 81001; 83735; 84484; 85025; 93005

== ENCOUNTER 2025-07-06 03:44 | Inpatient (IN) | payer BC, MEDICARE ==
[~2025-07-06] VITALS: Ht 152.4 cm; Wt 51.8 kg
[2025-07-06] VITALS (7 sets, daily range): BP systolic 99–110; BP diastolic 42–64; PULSE 71–113; RESP 14–18; TEMP 97.8–98; O2SAT 97–98
--- NOTE | 2025-07-06 04:00 | ED.PDOC ---
HPI Comments Patient was seen here earlier at the ER for palpitations. Patient does have history of AFib, does take her medications regularly, Eliquis, metoprolol. With the past week she has been experiencing palpitations that involves her left chest and left abdomen. Patient already has a document review attorney to follow up with. Diagnostics was done and discharged improved with instructions. At home, her pacemaker-defibrillator started firing up. Patient rushed out of her house to go seek help from neighbors, however she had a syncopal attack and fell to the ground. Patient states she passed out as paramedics came. She had about 5 episodes of the defibrillator firing up and another 5 with the paramedics. Patient was on Vtach, and was eventually given 81mg of lidocaine which stopped the defibrillator. Blood pressure on scene was 118/70 mmHg HPI: Poor Historian. REVIEW OF SYSTEMS: CONSTITUTIONAL: Denies acute: fever, diaphoresis, chills, generalized weakness. HEAD: Denies acute: photophobia Eyes: Denies acute: Double vision, vision loss, eye pain, eye discharge. EARS: Denies acute: tinnitus, hearing loss, ear discharge, ear pain, THROAT: Denies acute: sore throat, swelling, difficulty swallowing , pain with swallowing, change in voice. NECK: Denies acute: neck pain, neck swelling, stiff neck. HEART: Denies acute : chest pain, palpitations, LUNGS: Denies acute: SOB, wheezing, cough, hemoptysis ABDOMEN: Denies acute: abdominal pain, Nausea, Vomiting, diarrhea, melena , hematemesis, hematochezia SKIN: Denies acute: rash, redness, lesions, itchiness. EXTREMITIES: Denies acute: calf pain, numbness, tingling, weakness, denies pain in extremity. Denies acute: Low back pain. Neuro: Denies acute: focal neurological deficit, motor or sensory focal neurological deficit, tremors, seizure like activity, confusion, dizziness, change in mental status, loss of bowel or bladder function, cauda equina like symptoms. : Denies acute: dysuria, hematuria, flank pain, increase in urinary frequency. PSYCH: Denies acute: hallucination, suicidal ideation, homicidal ideation. FEMALE: Denies acute: abnormal vaginal bleeding, foul odor, unusual discharge. PHYSICAL EXAM: General: ----mild to mod----acute distress, awake and alert. Head: normocephalic, noted left zygomatic area bruise from a fall. No raccoon's eyes, no christianson sign. Neck: supple, trachea is midline, no swelling. Cervical spine: Palpation of the posterior midline of the cervical spine reveals no focal swelling, erythema, focal tenderness to palpation. Patient has normal range of motion. Throat: Normal phonation. Eyes:, no erythema, no purulent discharge, no proptosis, no icterus. Heart: regular rate, regular rhythm, no significant murmur appreciated. Chest wall area is tender to palpation after the shock of the defibrillator. Lungs: no apparent respiratory distress, Able to speak in full sentences. No wheezing, no rhonchi, no crackles. No stridors Clear to auscultation bilaterally. Abdomen: non tender to palpation, non distended, soft, no guarding, no rebound, + bowel sounds. Neuro: Awake, Alert, oriented to name, self, situation, follows commands GCS=15. Speech is normal. Skin: no petechia, no purpura, no cyanosis, non-pale, not jaundice. Lower extremities: --no - Pitting edema no deformity, no focal swelling, no calf TTP. Makes eye contact. moves all four extremities. Left knee anterior superficial abrasion. Face: no apparent facial droop. . No nuchal rigidity, Kernig's sign, Brudzinski's sign, no meningeal signs. ED COURSE: DISCLAIMER: This medical document was created using an electronic medical record system with voice recognition software and computerized dictation system. Although this document has been carefully reviewed, there might still be some phonetic and typographical errors. Occasional wrong-word or "sound-alike" substitutions may have occurred due to the inherent limitations of voice recognition software. These areas are purely typographical due to imperfections of the software programs and do not reflect any compromise in the patient's medical care. Please read the chart carefully and recognize, using context, where these substitutions have occurred. Chief Complaint: Chest Pain Time Seen by MD: 03:54 Primary Care Provider: AVINASH Reviewed Notes: Revenue Officer Notes, Allergies Allergies: Coded Allergies: NO KNOWN ALLERGIES (Unverified , 03/21/24) Home Meds Active Scripts Amiodarone Hcl (Amiodarone Hcl) 200 Mg Tab, 400 MG PO BID for 7 Days, #28 TAB Amiodarone 400 mg p.o. twice a day x7 days then 400 mg p.o. daily Prov:ROSA MARIA HIGGINBOTHAM VOIP NETWORK ENGINEER 05/03/24 Reported Medications Valsartan (Valsartan) 40 Mg Tab, 20 MG PO BID for 90 Days, #90 07/08/25 Fluticasone Propionate (Nasal) (Fluticasone Propionate) 50 Mcg/Act Spr, 1 SPRAY ABDOUL BID for 90 Days, #48 07/08/25 Spironolactone (Spironolactone) 25 Mg Tab, 1 TAB PO DAILY for 90 Days, #90 07/08/25 Metoprolol Succinate (Metoprolol Succinate Er) 25 Mg Tab, 1 TAB PO BID for 90 Days, #180 07/08/25 Dapagliflozin Propanediol (Farxiga) 10 Mg Tab, 5 MG PO DAILY for 30 Days, #30 07/08/25 Buspirone Hcl (Buspirone Hcl) 15 Mg Tab, 1 TAB PO BID for 30 Days, #60 07/08/25 Hydroxyzine Pamoate (Hydroxyzine Pamoate) 25 Mg Cap, 1 CAP PO TID for 30 Days, #90 07/08/25 Sacubitril-Valsartan (Entresto 24-26 mg) 1 Tab Tab, 1 TAB PO BID, TAB 03/22/24 Apixaban Base (ELIQUIS) 5 Mg Tab, 5 MG PO BID, TAB 03/22/24 Information Source: Patient, Emergency Med Personnel Mode of Arrival: EMS Past Medical History PAST MEDICAL HISTORY: AFIB, Anxiety, CHF, DM, HTN, Thyroid Surgical History: Cholecystectomy, Pacemaker CLINICAL REHABILITATION COORDINATOR History: Denies all CLINICAL REHABILITATION COORDINATOR Hx Family History Family History: Family hx of DM, Family hx of Cancer Social History Smoker: Non-Smoker Alcohol: Denies ETOH Use Drugs: Denies Drug Use Lives In: Home Was a procedure done? Was a procedure done?: No CP Differential Dx Differential Diagnosis: A-fib, A-Flutter, Angina, Anxiety / Panic Attack, Atrial Dysrhythmia, Digoxin Toxicity, Electrolyte Disorder, Heart Failure, Hyperthyroidism, Hyperventilation, Hypoxia, MAT, SD, PAC's, Pacemaker Malfunction, PSVT, Pulmonary Embolus, PVC's, Renal Failure, Sinus Tachycardia, Torsades De Pointes, Ventricular Dysrhythmia, V-Fib, V-Tach, WPW X-Ray, Labs, Meds, VS Vital Signs Date Time Temp Pulse Resp B/P (MAP) Pulse Ox O2 Delivery O2 Flow Rate FiO2 07/06/25 08:35 98.3 84 18 97/39 (58) 97 98.3 07/06/25 06:22 98.1 87 18 94/52 (66) 97 98.1 07/06/25 06:03 78 07/06/25 04:39 93 98 Room Air* 0 21 07/06/25 04:39 98.1 93 103/57 (72) 98.1 07/06/25 03:53 99 07/06/25 03:44 97.6 103 18 118/70 98 97.6 Lab Test 07/06/25 06:39 07/06/25 05:03 07/06/25 03:52 Range/Units Troponin I High Sensitivity 162 *H 57 *H 11 </=34 ng/L White Blood Count 11.8 H 4.4-10.8 10^3/uL Red Blood Count 3.91 L 4.0-5.20 10^6/uL Hemoglobin 12.4 12.2-16.2 g/dL Hematocrit 38.4 36.0-46.0 % Mean Corpuscular Volume 98.1 80.0-100.0 fL Mean Corpuscular Hemoglobin 31.6 28.0-32.0 pg Mean Corpuscular Hemoglobin Concent 32.2 32.0-36.0 g/dL Red Cell Distribution Width 15.2 H 11.8-14.3 % Platelet Count 196 140-450 10^3/uL Mean Platelet Volume 10.5 6.9-10.8 fL Neutrophils (%) (Auto) 46.6 37.0-80.0 % Lymphocytes (%) (Auto) 42.8 10.0-50.0 % Monocytes (%) (Auto) 8.6 0.0-12.0 % Eosinophils (%) (Auto) 1.4 0.0-7.0 % Basophils (%) (Auto) 0.6 0.0-2.0 % Neutrophils # (Auto) 5.5 1.6-8.6 10 ^3/uL Lymphocytes # (Auto) 5.1 0.4-5.4 10 ^3/uL Monocytes # (Auto) 1.0 0-1.3 10 ^3/uL Eosinophils # (Auto) 0.2 0-0.8 10 ^3/uL Basophils # (Auto) 0.1 0-0.2 10 ^3/uL Nucleated Red Blood Cells 0.1 % Sodium Level 139 136-145 mmol/L Potassium Level 3.6 3.5-5.1 mmol/L Chloride Level 105 98-107 mmol/L Carbon Dioxide Level 17 L 20-31 mmol/L Anion Gap 17 H 5-15 Blood Urea Nitrogen 16 9-23 mg/dL Creatinine 1.53 H 0.550-1.02 mg/dL Glomerular Filtration Rate Calc 37 >90 mL/min BUN/Creatinine Ratio 10.5 10.0-20.0 Serum Glucose 251 H 74-106 mg/dL Calcium Level 10.1 8.7-10.4 mg/dL Magnesium Level 2.2 1.6-2.6 mg/dL Total Bilirubin 0.4 0.2-1.0 mg/dL Aspartate Amino Transferase (AST) 23 13-40 U/L Alanine Aminotransferase (ALT) 14 7-40 U/L Alkaline Phosphatase 95 46-116 U/L Total Protein 7.3 5.7-8.2 g/dL Albumin 4.3 3.2-4.8 g/dL Time of 1ST Reevaluation: 04:09 Reevaluation 1ST: Unchanged Patient Education/Counseling: Diagnosis, Treatment Family Education/Counseling: Diagnosis, Treatment Comments Page was sent out for cardiology Dr. Montanez. Still waiting to hear back from him. MDM: patient presented with the above HPI.--syncope and collapse/cardiac workup/defibrillator firing----workup was initiated. patient was found with the above mentioned diagnosis. the following medications were ordered: please refer to order lists of meds and tests obtained by myself Dr. Treviño. Patient ED course and VS have been stabilized. Patient has been reassessed in the ED and remained in a stable condition. Pertinent incidental findings were discussed with the patient and/or family. Patient/family voices understanding and is agreeable with plan. Patient has been observed in the ED adequate length of time to insure imp rovement/stability. Escalation of care considered: Consideration of escalation to observation or admission Wound was cleansed. Patient was given fluids. Cardiology was consulted. Defibrillator was interrogated. CT cervical and CT head were obtained. Patient was given amiodarone bolus for V-tach Patient was ADMITTED to the medicine team for further evaluation and treatment of their presentation. All the reports of any imaging studies that were ordered by myself were reviewed by myself. Departure 1 Departure Time of Disposition: 03:54 Impression: Primary Impression: Defibrillator discharge Additional Impressions: Ventricular tachycardia Syncope and collapse Closed head injury Abrasion, left knee, initial encounter Chest pain Disposition: ADMITTED INPATIENT Admit to: Tele Condition: Guarded Discharged With: Self Critical Care Note Critical Care Time?: Yes (1 hr-critical care time only) Heart Score Heart Score: Heart Score Response (Comments) Value History Moderate Suspicious [address]-Deviation 2 Age >65 2 Risk Factors >3 or Hx ASHD 2 Troponin 1-2 x's Normal limit 1 Total 8 I personally scribed for BRITTNY TREVIÑO DO ([email or web address]) on 07/06/25 at 04:10. Electronically submitted by Benny Pastrana ([employer]). I personally scribed for BRITTNY TREVIÑO DO ([email or web address]) on 07/06/25 at 04:13. Electronically submitted by Benny Pastrana ([email or web address]). BRITTNY TREVIÑO DO Jul 06, 2025 04:00
[2025-07-06 04:13] LABS: Hematocrit 38.4 % (36.0-46.0); Hemoglobin 12.4 g/dL (12.2-16.2); Mean Corpuscular Hemoglobin 31.6 pg (28.0-32.0); Mean Corpuscular Volume 98.1 fL (80.0-100.0); Nucleated Red Blood Cells % 0.1 %
[2025-07-06] MEDS: AMIODARONE BOLUS KIT 100 ML IV ONE (04:27)
[2025-07-06 04:29] LABS: Alanine Aminotransferase 14 U/L (7-40); Albumin 4.3 g/dL (3.2-4.8); Alkaline Phosphatase 95 U/L (46-116); Anion Gap 17 (5-15); BUN/Creatinine Ratio 10.5 (10.0-20.0); Bilirubin, Total 0.4 mg/dL (0.2-1.0); Blood Urea Nitrogen 16 mg/dL (9-23); Calcium 10.1 mg/dL (8.7-10.4); Chloride 105 mmol/L (98-107); Potassium 3.6 mmol/L (3.5-5.1); Sodium 139 mmol/L (136-145); Total Protein 7.3 g/dL (5.7-8.2)
[2025-07-06 04:36] LABS: Carbon Dioxide 17 mmol/L (20-31); Glucose 251 mg/dL (74-106)
--- NOTE | 2025-07-06 04:42 | ECG ---
[facility] Test Date: 2025-07-06 Test Time: 03:53:56 Pat Name: BEREKET GARCIA Department: ED Room: 0208T Gender: F Wrapper Rewinder: JESSE : 1955 Requested By: BRITTNY TREVIÑO Order Number: [id number] Reading MD: Edilson Cline Measurements Intervals [place] Rate: 99 P: 0 [place]: 174 QRS: 264 QRSD: 160 T: 100 QT: 414 QTc: 532 Interpretive Statements Ventricular-paced complexes No further analysis attempted due to paced rhythm Electronically Signed On 07-09-2025 17:49:39 PST by Edilson Cline Please click the below link to view image of tracing.
[2025-07-06] MEDS: SODIUM CHLORIDE 0.9% 500 ML IV ONE (05:00)
--- NOTE | 2025-07-06 05:20 | DVH ---
CLINICAL INDICATION: FALL INJURY TECHNIQUE: 3 views XY L KNEE 3V XRAY Comparison: None FINDINGS: No acute fracture or joint malalignment. Limited assessment for joint effusion with suboptimal lateral positioning, without obvious effusion. Mild tricompartmental osteoarthrosis with meniscal chondrocalcinosis. Distal quadriceps enthesophyte. No appreciable soft tissue swelling. IMPRESSION: 1. No acute osseous abnormality of the left knee.
--- NOTE | 2025-07-06 05:20 | DVH ---
CHEST RADIOGRAPH Indication: CHEST PAIN Technique: 1 view Comparison: XY CHEST XRAY 1 VIEW on DOS: 07/05/25, XY CHEST PORTABLE on DOS: 05/01/24, XY CHEST PORTABLE on DOS: 03/31/24, XR CHEST 1 VIEW on DOS: 03/17/24, XR CHEST 1 VIEW on DOS: 03/09/24 FINDINGS: Lines and Tubes: Unchanged left implanted cardiac device. Lungs/Pleura: No focal consolidation, pleural effusion or pneumothorax. Relative lucency of the lung apices. Similar mildly prominent interstitial opacities. Cardiomediastinum: Unchanged, upper normal heart size. Other: No acute osseous abnormality. IMPRESSION: No acute cardiopulmonary abnormality or change from the prior exam.
--- NOTE | 2025-07-06 05:23 | DVH ---
MEDICAL RECORDS NUMBER: [id number] PROCEDURE: CT CERVICAL WITHOUT CONTRAST Date: 07/06/2025 04:47 AM HISTORY: fall Contrast: None COMPARISON: CT C-SPINE on DOS: 11/28/22 RADIATION DOSE INFORMATION: Automated exposure control dose reduction techniques were used. TECHNIQUE: Multiple contiguous axial sections of cervical spine were obtained without contrast. Sagittal and coronal reconstructions were also performed. FINDINGS: Alignment is maintained. Minor degenerative changes are seen diffusely. Anterior vertebral body heights are maintained. Prevertebral soft tissues appear unremarkable. No fracture is seen. IMPRESSION: 1. No acute abnormality is seen.
--- NOTE | 2025-07-06 05:33 | DVH ---
MEDICAL RECORDS NUMBER: [id number] PROCEDURE: CT HEAD WITHOUT CONTRAST Date: 07/06/2025 04:49 AM HISTORY: FALL INJURY, BLOOD THINNERS TECHNIQUE: Contiguous axial images were acquired from the skull base through to the vertex. CONTRAST: None COMPARISON: CT HEAD WITHOUT CONTRAST on DOS: 04/28/24, CT BRAIN on DOS: 02/28/23, CT BRAIN on DOS: 11/28/22, CT BRAIN on DOS: 05/31/22, CT BRAIN on DOS: 05/29/21 RADIATION DOSE INFORMATION: Automated exposure control dose reduction techniques were used. FINDINGS: Ventricles: Mild atrophy of the brain is seen diffusely.The ventricles appear grossly unremarkable. Masses: No mass effect is seen. Hemorrhage: No blood products are identified. Skull: The calvarium is intact. Sinuses: The paranasal sinuses are clear. Mastoids: No fluid is seen in the mastoid air cells. IMPRESSION: 1. No acute process is identified.
--- NOTE | 2025-07-06 06:05 | ECG ---
[facility] Test Date: 2025-07-06 Test Time: 06:03:59 Pat Name: BEREKET GARCIA Department: ED Room: 0208T Gender: F Information And Referral Director: SARKIS : [id number] Requested By: BRITTNY TREVIÑO Order Number: [id number] Reading MD: Edilson Cline Measurements Intervals [place] Rate: 78 P: 47 IA: 173 QRS: -50 QRSD: 174 T: 113 QT: 470 QTc: 536 Interpretive Statements Atrial-sensed ventricular-paced complexes No further analysis attempted due to paced rhythm Electronically Signed On 07-09-2025 17:49:51 PST by Edilson Cline Please click the below link to view image of tracing.
--- NOTE | 2025-07-06 08:39 | DVHHP2 ---
Admitting Diagnosis: Defibrillator discharge History of Present Illness Patient was seen here earlier at the ER for palpitations. Patient does have history of AFib, does take her medications regularly, Eliquis, metoprolol. With the past week she has been experiencing palpitations that involves her left chest and left abdomen. 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 Diagnostics was done and discharged improved with instructions. At home, her pacemaker-defibrillator started firing up. Patient rushed out of her house to go seek help from neighbors, however she had a syncopal attack and fell to the ground. Patient states she passed out as paramedics came. She had about 5 episodes of the defibrillator firing up and another 5 with the paramedics. Patient was on Vtach, and was eventually given 81mg of lidocaine which stopped the defibrillator. Blood pressure on scene was 118/70 mmHg Patient Family History: Autistic disorder 19 CHILD 19 CHILD FH: breast cancer G8 SISTER FH: dementia G8 MOTHER, Allergies: Coded Allergies: NO KNOWN ALLERGIES (Unverified , 03/21/24) Home Meds Active Scripts Pantoprazole Sodium Sesquihydr (Protonix) 40 Mg Tab, 40 MG PO DAILY, #30 TAB Prov:ROSA MARIA HIGGINBOTHAM GAME PROGRAMMER 05/03/24 Amiodarone Hcl (Amiodarone Hcl) 200 Mg Tab, 400 MG PO BID for 7 Days, #28 TAB Amiodarone 400 mg p.o. twice a day x7 days then 400 mg p.o. daily Prov:ROSA MARIA HIGGINBOTHAM GAME PROGRAMMER 05/03/24 Amiodarone Hcl (Amiodarone Hcl) 200 Mg Tab, 400 MG PO DAILY for 30 Days, #60 TAB 1 Refill Please see other order for amiodarone. Patient was to receive one week course of 400 mg p.o. twice a day for seven days then followed by 400 daily Prov:ROSA MARIA HIGGINBOTHAM NP 05/03/24 Ondansetron Odt 4MG Tab (ZOFRAN PO) 4 Mg Tb, 4 MG PO Q4HP PRN for 5 Days, #25 TAB ODT TAB-DISSOLVE IN MOUTH, THEN SWALLOW Prov:IGNACIA ENGEL RESIDENT 04/02/24 Metronidazole (Flagyl) 500 Mg Tab, 500 MG PO TID for 7 Days, #21 TAB Prov:IGNACIA ENGEL RESIDENT 04/02/24 Ciprofloxacin Hcl (Cipro) 500 Mg Tab, 1 TAB PO BID for 7 Days, #14 TAB Prov:IGNACIA ENGEL RESIDENT 04/02/24 Metoprolol Tartrate (Metoprolol Tartrate) 25 Mg Tab, 25 MG PO DAILY for 30 Days, #30 MG 2 Refills Prov:BRYCEESTEVANREGULOLUCIAN RESIDENT 03/23/24 Reported Medications Buspirone Hcl (Buspirone Hcl) 10 Mg Tab, 10 MG PO Q12HR for 30 Days, MG 04/02/24 Magnesium Oxide (MAGNESIUM OXIDE) 400 Mg Tab, 1 TAB PO DAILY, #30 TAB 5 Refills 03/22/24 Sacubitril-Valsartan (Entresto 24-26 mg) 1 Tab Tab, 1 TAB PO BID, TAB 03/22/24 Apixaban Base (ELIQUIS) 5 Mg Tab, 5 MG PO BID, TAB 03/22/24 Current Medications Current Medications Medications (Trade) Dose Ordered Sig/Lexi Route PRN Reason Start Time Stop Time Status Last Admin Sodium Chloride (Saline Lock Ns) 10 ml Q8HR IV 07/06/25 14:00 UNV Docusate Sodium (Colace Capsule) 100 mg BIDPRN PRN PO FOR CONSTIPATION 07/06/25 08:45 UNV Acetaminophen (Tylenol Tablet) 650 mg Q6HP PRN PO PAIN SCALE 1-3 OR TEMP>100.4 07/06/25 08:45 UNV Acetaminophen/ Hydrocodone Bitart ([place] 5/325MG Tab) 1 tab Q4HP PRN PO MODERATE PAIN (4-6 PAIN SCALE) 07/06/25 08:45 UNV Hydromorphone HCl (Dilaudid Injection) 0.5 mg Q4HP PRN IV SEVERE PAIN (7-10 PAIN SCALE) 07/06/25 08:45 UNV Ondansetron HCl (Zofran) 4 mg Q4HP PRN IV NAUSEA / VOMITING 07/06/25 08:45 UNV Nitroglycerin (Ntrostat Sublingual) 0.4 mg Q5MINP PRN SL FOR CHEST PAIN 07/06/25 08:45 UNV Morphine Sulfate 2 mg Q30M PRN IV FOR CHEST PAIN 07/06/25 08:45 UNV Vital Signs Vital Signs Date Time Temp Pulse Resp B/P (MAP) Pulse Ox O2 Delivery O2 Flow Rate FiO2 07/06/25 06:22 98.1 87 18 94/52 (66) 97 98.1 07/06/25 04:39 Room Air* 0 21 Physical Exam Generally-61 years old woman, well nourished well developed. No apparent distress HEENT-atraumatic normocephalic Heart-regular rate and rhythm Lungs clear to auscultate Abdomen soft nontender nondistended Musculoskeletal-no edema cyanosis. Positive tenderness Neuro-AO x3, no focal deficits SEPSIS Sepsis Screen Date sepsis recognized/suspect: Jul 06, 2025 Time Sepsis recognized/suspect: 343 Recent Procedure: No On Antibiotic Therapy: No Respiratory Rate >20: No Heart Rate >90: Yes Temp<36 C (96.8 F) or >38.3 C: No SBP <90 or MAP <65 mmHG: No New Acute Mental Status Change: No Is the patient on CPAP, BIPAP,: No Physician Orders Chest Portable (07/06/25 03:48) Urinalysis (07/06/25 03:48) Electrocardigram (07/06/25 06:48) Head Without Contrast (07/06/25 03:48) L Knee 3v Xray (07/06/25 03:53) Cervical Without Contrast (07/06/25 03:55) Core Driller Helper To Assess Pacemaker (07/06/25 03:55) * Cardiology Consult (07/06/25 04:05) Cleanse Wound With Ns (07/06/25 06:37) Admit (07/06/25 08:39) Code Status (07/06/25 08:39) Vital Signs .PER UNIT PROTOCOL (07/06/25 08:39) Review Orders With Adm.Md (07/06/25 08:39) Encourage Activity As Tolerate (07/06/25 08:39) Sodium Chloride Lock (Saline Lock Ns) (07/06/25 14:00) Docusate Sodium Capsule (Colace Capsule) (07/06/25 08:45) Acetaminophen Tablet (Tylenol Tablet) (07/06/25 08:45) Notify Md Of Changes From Base (07/06/25 08:39) Advance Directive (07/06/25 08:39) Patient Condition (07/06/25 08:39) Allergies (07/06/25 08:39) Hydrocodone-Acet 5/325mg Tab ([place] 5/32 (07/06/25 08:45) Hydromorphone Injection (Dilaudid Inject (07/06/25 08:45) Ondansetron Hcl (Zofran) (07/06/25 08:45) Nitroglycerin Sublingual (Ntrostat Subli (07/06/25 08:45) Morphine Sulfate Injection (07/06/25 08:45) Stat Ekg For Chest Pain (07/06/25 08:39) Notify Of Changes From Base (07/06/25:39) Fish Fryer For 24 Hours (07/06/25:39) Emergency Dysrhythmia Protocol (07/06/25:39) Rhythm Strips Once Every Shift (07/06/25:39) Oxygen By Nasal Cannula (07/06/25:39) Echo 2d Mode Cardiac Dop (07/06/25:39) Carotid Duplx W Color Dop (07/06/25:39) Basic Metabolic Panel (07/07/25 05:00) Basic Metabolic Panel (07/08/25 05:00) Basic Metabolic Panel (07/09/25 05:00) Basic Metabolic Panel (07/10/25 05:00) Basic Metabolic Panel (07/11/25 05:00) Complete Blood Count (07/07/25 05:00) Complete Blood Count (07/08/25 05:00) Complete Blood Count (07/09/25 05:00) Complete Blood Count (07/10/25 05:00) Complete Blood Count (07/11/25 05:00) Magnesium (07/07/25 05:00) Magnesium (07/08/25 05:00) Magnesium (07/09/25 05:00) Magnesium (07/10/25 05:00) Magnesium (07/11/25 05:00) Kidney (07/06/25 08:39) *[facility] (07/06/25 08:39) Vital Signs Date Time Temp Pulse Resp B/P (MAP) Pulse Ox O2 Delivery O2 Flow Rate FiO2 07/06/25 06:22 98.1 87 18 94/52 (66) 97 98.1 07/06/25 06:03 78 07/06/25 04:39 93 98 Room Air* 0 21 07/06/25 04:39 98.1 93 103/57 (72) 98.1 07/06/25 03:53 99 07/06/25 03:44 97.6 103 18 118/70 98 97.6 Laboratory Tests Test 07/06/25 03:52 White Blood Count 11.8 10^3/uL (4.4-10.8) H Medications Medications Dose Ordered Sig/Lexi Route Start Time Stop Time Status Last Admin Dose Admin Amiodarone HCl 100 ml @ 600 mls/hr ONCE ONCE IV 07/06/25 04:00 07/06/25 04:09 DC 07/06/25 04:27 Sodium Chloride 500 ml @ 500 mls/hr Q1H ONCE IV 07/06/25 05:00 07/06/25 05:59 DC 07/06/25 05:00 Results Labs Test 07/06/25 06:39 07/06/25 03:52 Range/Units Troponin I High Sensitivity 162 *H </=34 ng/L White Blood Count 11.8 H 4.4-10.8 10^3/uL Red Blood Count 3.91 L 4.0-5.20 10^6/uL Hemoglobin 12.4 12.2-16.2 g/dL Hematocrit 38.4 36.0-46.0 % Mean Corpuscular Volume 98.1 80.0-100.0 fL Mean Corpuscular Hemoglobin 31.6 28.0-32.0 pg Mean Corpuscular Hemoglobin Concent 32.2 32.0-36.0 g/dL Red Cell Distribution Width 15.2 H 11.8-14.3 % Platelet Count 196 140-450 10^3/uL Mean Platelet Volume 10.5 6.9-10.8 fL Neutrophils (%) (Auto) 46.6 37.0-80.0 % Lymphocytes (%) (Auto) 42.8 10.0-50.0 % Monocytes (%) (Auto) 8.6 0.0-12.0 % Eosinophils (%) (Auto) 1.4 0.0-7.0 % Basophils (%) (Auto) 0.6 0.0-2.0 % Neutrophils # (Auto) 5.5 1.6-8.6 10 ^3/uL Lymphocytes # (Auto) 5.1 0.4-5.4 10 ^3/uL Monocytes # (Auto) 1.0 0-1.3 10 ^3/uL Eosinophils # (Auto) 0.2 0-0.8 10 ^3/uL Basophils # (Auto) 0.1 0-0.2 10 ^3/uL Nucleated Red Blood Cells 0.1 % Sodium Level 139 136-145 mmol/L Potassium Level 3.6 3.5-5.1 mmol/L Chloride Level 105 98-107 mmol/L Carbon Dioxide Level 17 L 20-31 mmol/L Anion Gap 17 H 5-15 Blood Urea Nitrogen 16 9-23 mg/dL Creatinine 1.53 H 0.550-1.02 mg/dL Glomerular Filtration Rate Calc 37 >90 mL/min BUN/Creatinine Ratio 10.5 10.0-20.0 Serum Glucose 251 H 74-106 mg/dL Calcium Level 10.1 8.7-10.4 mg/dL Magnesium Level 2.2 1.6-2.6 mg/dL Total Bilirubin 0.4 0.2-1.0 mg/dL Aspartate Amino Transferase (AST) 23 13-40 U/L Alanine Aminotransferase (ALT) 14 7-40 U/L Alkaline Phosphatase 95 46-116 U/L Total Protein 7.3 5.7-8.2 g/dL Albumin 4.3 3.2-4.8 g/dL Primary Diagnosis Defibrillator discharge Syncope Left knee pain RENZO on CKD Plan Press troponin 57, 2nd [address] cervical spine negative X-ray left knee negative CT head negative Chest x-ray negative for pathologic Check echo of the heart check for AICD interrogation Cardiology consult in ED. Follow the recommendation Nephrology consult in ED. Recommendation Avoid nephrotoxic medication IV fluids\ Resume home meds Full code SCD for DVT prophylaxis No GI prophylaxis Plan discussed with: Patient Problems List: (1) Afib (2) Defibrillator discharge Status: Acute (3) Syncope and collapse Status: Acute Date of Service: Jul 06, 2025 Billing Provider: ANA MEDRANO MD Common Visit Codes: [id number] INP/OBS CARE (HIGH) ANA MEDRANO MD Jul 06, 2025 08:39
[2025-07-06] MEDS ORDERED: MORPHINE SULFATE INJ 2 MG/ml SYRG IV PRN (08:45)
[2025-07-06] MEDS ORDERED: HYDROmorphone HCL 2 MG/ML VL/or syr IV PRN (08:45)
[2025-07-06] MEDS ORDERED: NITROGLYCERIN 0.4 MG SL TAB SL PRN (08:45)
--- NOTE | 2025-07-06 10:24 | DVH ---
CLINICAL HISTORY: aston on ckd TECHNIQUE: Complete ultrasound exam of the kidneys and bladder was performed. COMPARISON: US ABDOMEN COMPLETE on DOS: 05/30/21 FINDINGS: The right kidney has normal echogenicity and measures 8.6 cm. There is no focal parenchymal abnormality or evidence for stone. There is no hydronephrosis. The left kidney has normal echogenicity and measures 7.8 cm. There is no focal parenchymal abnormality or evidence for stone. There is no hydronephrosis. The bladder is decompressed by Marcelino catheter. IMPRESSION: NO SIGNIFICANT SONOGRAPHIC ABNORMALITY OF THE KIDNEYS.
[2025-07-06] MEDS: AMIODARONE HCL 200 MG TAB PO SCH (11:30)
[2025-07-06] MEDS: APIXABAN 5 MG TAB PO SCH (11:31)
[2025-07-06] MEDS: HYDROcodone-ACET 5/325MG TAB PO PRN (11:31)
[2025-07-06] MEDS: METOPROLOL TARTRATE 25 MG TAB PO SCH (11:32)
[2025-07-06] MEDS: SACUBITRIL-VALSARTAN 24mg/26mg TAB PO SCH (11:32)
--- NOTE | 2025-07-06 12:23 | DVH ---
Indication: syncope Technique: Real-time ultrasound images of the neck vessels with canada-scale, color and wave Doppler were obtained. Comparison: US CAROTID DUPLX W COLOR DOP on DOS: 04/28/24, CV CAROTID DOPPLER BILAT on DOS: 05/31/22 Findings: There is cnle-oy-bglohmde atherosclerotic plaque bilaterally. The following peak systolic velocities were recorded in cm/sec: Right internal carotid: 113 Right common carotid: 62 Right external carotid: 104 Right internal/common carotid ratio: 1.8 Left internal carotid: 99 Left common carotid: 57 Left external carotid: 86 Left internal/common carotid ratio: 1.7 Right vertebral artery: Patent with normal antegrade direction of flow. Left vertebral artery: Patent with normal antegrade direction of flow. Impression: No hemodynamically significant stenosis by velocity criteria. [id number] atherosclerotic plaque bilaterally.
[2025-07-06] MEDS: SODIUM CHLOR 0.9% PF (SALINE LOCK) 10ML VIAL/SYR IV SCH (14:00)
--- NOTE | 2025-07-06 16:00 | DVHSR ---
APPROVED REPORT EXAM: Two-dimensional and M-mode echocardiogram with Doppler and color Doppler. Blood Pressure: 94/52 mmHg INDICATION Syncope Elevated Trops Surgery/Intervention Pacemaker: RISK FACTORS Height: 5' 3", Weight: 120 DIMENSIONS LVDd 6.7 (3.8-5.7cm) LA (2D) 4.1 (1.9-4.0cm) Aortic Root 3.1 (2.0-3.7cm) LVDs 6.5 (2.5-4.0cm) LA (MM) (1.9-4.0cm) Aortic Cusp Exc 1.7 (1.5-2.0cm) EF (%) 5.0 (55-70%) Rt. Atrium 4.8 (1.9-4.0cm) Asc. Aorta cm IVSd 0.4 (0.7-1.1cm) RV (D) (1.8-2.4cm) PWd 0.7 (0.7-1.1cm) Mitral Valve Mitral Mitral Stenosis E wave 0.30m/s MV Mean GR. mmHg A wave 0.70m/s MV Peak GR. mmHg E/A ratio 0.4 2D MVA cm2 Aortic Valve Aortic Valve Aortic Stenosis V1 0.40m/s AO Mean GR. 4mmHg V2 1.40m/s AO Peak GR. 9mmHg Pulmonic Valve V2 0.50m/s Tricuspid Valve TR Velocity 2.40m/s RVSP 30mmHg Conclusion REMARKABLT DILATED LV AND IS SIGNIFICANTLY HYPOKINETIC LV EF IS ONLY 5% MODERATE DEGREE MR NORMAL VALVES NO EFFUSION
[2025-07-07] VITALS (11 sets, daily range): BP systolic 98–119; BP diastolic 43–70; PULSE 55–96; RESP 15–18; TEMP 96.5–98.5; O2SAT 96–99
[2025-07-07 02:31] LABS: Urine Protein, UAD Negative (Negative)
[2025-07-07 11:32] LABS: Hematocrit 37.9 % (36.0-46.0); Hemoglobin 12.7 g/dL (12.2-16.2); Mean Corpuscular Hemoglobin 32.0 pg (28.0-32.0); Mean Corpuscular Volume 95.7 fL (80.0-100.0); Nucleated Red Blood Cells % 0.0 %
[2025-07-07 11:37] LABS: Potassium 4.5 mmol/L (3.5-5.1); Sodium 141 mmol/L (136-145)
[2025-07-07 11:38] LABS: Anion Gap 9 (5-15); Carbon Dioxide 24 mmol/L (20-31)
[2025-07-07 11:39] LABS: Calcium 10.5 mg/dL (8.7-10.4); Chloride 108 mmol/L (98-107)
[2025-07-07 11:44] LABS: BUN/Creatinine Ratio 11.2 (10.0-20.0); Blood Urea Nitrogen 13 mg/dL (9-23); Magnesium 2.2 mg/dL (1.6-2.6)
[2025-07-07 11:47] LABS: Glucose 112 mg/dL (74-106)
--- NOTE | 2025-07-07 12:53 | DVHPN2 ---
Subjective Seen in bed with no pain Reviewed: H&P Changes from previous H/P or p: No Changes Objective Vitals Vital Signs Date Time Temp Pulse Resp B/P (MAP) Pulse Ox O2 Delivery O2 Flow Rate FiO2 07/07/25 12:37 98.0 55 16 98/51 (67) 98 98.0 07/06/25 20:00 Room Air* 0 21 Intake/Output Intake and Output 07/07/25 07:00 Intake Total 1370 ml Balance 1370 ml Intake Oral 1370 ml # Voids 3 # Bowel Movements 1 General Appearance: Alert, Oriented X3 HEENT: Atraumatic Lungs: Clear to auscultation Cardiovascular: Regular rate, Normal S1, Normal S2 Abdomen: Normal bowel sounds Medications Current Medications Medications Dose Ordered Sig/Lexi Route Start Time Stop Time Status Last Admin Dose Admin Sodium Chloride 10 ml Q8HR IV 07/06/25 14:00 07/07/25 06:37 10 ML Docusate Sodium 100 mg BIDPRN PRN PO 07/06/25 08:45 Acetaminophen 650 mg Q6HP PRN PO 07/06/25 08:45 Acetaminophen/ Hydrocodone Bitart 1 tab Q4HP PRN PO 07/06/25 08:45 07/07/25 07:42 1 TAB Hydromorphone HCl 0.5 mg Q4HP PRN IV 07/06/25 08:45 Ondansetron HCl 4 mg Q4HP PRN IV 07/06/25 08:45 Nitroglycerin 0.4 mg Q5MINP PRN SL 07/06/25 08:45 Morphine Sulfate 2 mg Q30M PRN IV 07/06/25 08:45 Amiodarone HCl 400 mg BID PO 07/06/25 10:00 07/07/25 09:05 400 MG Apixaban 5 mg BID PO 07/06/25 10:00 07/07/25 09:04 5 MG Buspirone HCl 10 mg Q12HR PO 07/06/25 10:00 07/07/25 09:05 10 MG Metoprolol Tartrate 25 mg DAILY PO 07/06/25 10:00 Sacubitril/ Valsartan 1 tab BID PO 07/06/25 10:00 07/06/25 11:32 1 TAB Laboratory Results Laboratory Tests 07/07/25 10:41 Chemistry Test 07/07/25 10:41 Calcium Level 10.5 mg/dL (8.7-10.4) H Magnesium Level 2.2 mg/dL (1.6-2.6) Urinalysis Test 07/07/25 01:20 Urine Color Colorless (Yellow) Urine Clarity Clear (Clear) Urine pH 5.0 (5.0-9.0) Urine Specific [place] 1.002 (1.001-1.035) Urine Protein Negative (Negative) Urine Ketones Negative (Negative) Urine Blood Negative /uL (Negative) Urine Nitrite Negative (Negative) Urine Bilirubin Negative (Negative) Urine Urobilinogen Normal mg/dL (Negative) Urine Leukocyte Esterase Negative /uL (Negative) Urine RBC <1 /hpf (0 - 4) Urine Microscopic WBC < 1 /HPF (0-5) Urine Squamous Epithelial Cells Few /hpf (<5) Urine Bacteria None seen /hpf (None Seen) Urine Glucose 4+ mg/dL (Normal) H Assessment/Plan Assessment/Plan Defibrillator discharge Syncope Left knee pain RENZO on CKD cardiology consulted ACID check entresto, eliquis, amiodarone daily bmp Plan discussed with: Patient Date of Service: Jul 07, 2025 Billing Provider: INDIO BRCIEÑO MD Common Visit Codes: [id number] INP/OBS CARE(HIGH) INDIO BRICEÑO MD Jul 07, 2025 12:53
--- NOTE | 2025-07-07 20:00 | DVHINCON2 ---
Date of service: Jul 07, 2025 Reason for Consultation aston History of Present Illness 69 years old female with past medical history of defibrillator, Congestive heart failure, Chronic kidney disease 3A presented with chief complaints of palpitations and firing of AICD she denies any urinary complaints Past Medical History As per HPI Past Surgical History As per HPI Allergies: Coded Allergies: NO KNOWN ALLERGIES (Unverified , 03/21/24) Home Meds Active Scripts Pantoprazole Sodium Sesquihydr (Protonix) 40 Mg Tab, 40 MG PO DAILY, #30 TAB Prov:ROSA MARIA HIGGINBOTHAM DATA WAREHOUSE DEVELOPER 05/03/24 Amiodarone Hcl (Amiodarone Hcl) 200 Mg Tab, 400 MG PO BID for 7 Days, #28 TAB Amiodarone 400 mg p.o. twice a day x7 days then 400 mg p.o. daily Prov:ROSA MARIA HIGGINBOTHAM DATA WAREHOUSE DEVELOPER 05/03/24 Amiodarone Hcl (Amiodarone Hcl) 200 Mg Tab, 400 MG PO DAILY for 30 Days, #60 TAB 1 Refill Please see other order for amiodarone. Patient was to receive one week course of 400 mg p.o. twice a day for seven days then followed by 400 daily Prov:ROSA MARIA HIGGINBOTHAM DATA WAREHOUSE DEVELOPER 05/03/24 Ondansetron Odt 4MG Tab (ZOFRAN PO) 4 Mg Tb, 4 MG PO Q4HP PRN for 5 Days, #25 TAB ODT TAB-DISSOLVE IN MOUTH, THEN SWALLOW Prov:IGNACIA ENGEL RESIDENT 04/02/24 Metronidazole (Flagyl) 500 Mg Tab, 500 MG PO TID for 7 Days, #21 TAB Prov:IGNACIA ENGEL RESIDENT 04/02/24 Ciprofloxacin Hcl (Cipro) 500 Mg Tab, 1 TAB PO BID for 7 Days, #14 TAB Prov:IGNACIA ENGEL RESIDENT 04/02/24 Metoprolol Tartrate (Metoprolol Tartrate) 25 Mg Tab, 25 MG PO DAILY for 30 Days, #30 MG 2 Refills Prov:ROXANA WU RESIDENT 03/23/24 Reported Medications Buspirone Hcl (Buspirone Hcl) 10 Mg Tab, 10 MG PO Q12HR for 30 Days, MG 04/02/24 Magnesium Oxide (MAGNESIUM OXIDE) 400 Mg Tab, 1 TAB PO DAILY, #30 TAB 5 Refills 03/22/24 Sacubitril-Valsartan (Entresto 24-26 mg) 1 Tab Tab, 1 TAB PO BID, TAB 03/22/24 Apixaban Base (ELIQUIS) 5 Mg Tab, 5 MG PO BID, TAB 03/22/24 Family History: Autistic disorder 19 CHILD 19 CHILD FH: breast cancer G8 SISTER FH: dementia G8 MOTHER, Review of Systems As documented in HPI H&P Exam Vital Signs/I&O Vital Sign Date Time Temp Pulse Resp B/P (MAP) Pulse Ox O2 Delivery O2 Flow Rate FiO2 07/07/25 16:45 97.8 94 15 109/62 (78) 99 97.8 07/06/25 20:00 Room Air* 0 21 Intake and Output 0 07/06/25 07/07/25 19:00 07:00 Intake Total 520 ml 850 ml Balance 520 ml 850 ml Intake Oral 520 ml 850 ml # Voids 1 2 # Bowel Movements 1 Physical Exam General-not in any distress HEENT-normocephalic, no icterus, no pallor, neck supple Respiratory-fair air entry bilateral, no rhonchi, no wheeze [id number] heard, no murmurs appreciated Abdominal-soft, nontender, nondistended Musculoskeletal-no pedal edema, no calf tenderness Genitourinary-deferred Neuro-awake alert oriented x3, Psychiatric-not agitated, cooperative, Labs/Diagnostic Data Labs/Diagnostic Data Laboratory Tests Test 07/07/25 10:41 07/07/25 01:20 07/06/25 06:39 07/06/25 05:03 Range/Units White Blood Count 12.0 H 4.4-10.8 10^3/uL Red Blood Count 3.96 L 4.0-5.20 10^6/uL Hemoglobin 12.7 12.2-16.2 g/dL Hematocrit 37.9 36.0-46.0 % Mean Corpuscular Volume 95.7 80.0-100.0 fL Mean Corpuscular Hemoglobin 32.0 28.0-32.0 pg Mean Corpuscular Hemoglobin Concent 33.4 32.0-36.0 g/dL Red Cell Distribution Width 14.5 H 11.8-14.3 % Platelet Count 188 140-450 10^3/uL Mean Platelet Volume 10.8 6.9-10.8 fL Neutrophils (%) (Auto) 69.9 37.0-80.0 % Lymphocytes (%) (Auto) 21.3 10.0-50.0 % Monocytes (%) (Auto) 7.7 0.0-12.0 % Eosinophils (%) (Auto) 0.7 0.0-7.0 % Basophils (%) (Auto) 0.4 0.0-2.0 % Neutrophils # (Auto) 8.4 1.6-8.6 10 ^3/uL Lymphocytes # (Auto) 2.6 0.4-5.4 10 ^3/uL Monocytes # (Auto) 0.9 0-1.3 10 ^3/uL Eosinophils # (Auto) 0.1 0-0.8 10 ^3/uL Basophils # (Auto) 0 0-0.2 10 ^3/uL Nucleated Red Blood Cells 0.0 % Sodium Level 141 136-145 mmol/L Potassium Level 4.5 3.5-5.1 mmol/L Chloride Level 108 H 98-107 mmol/L Carbon Dioxide Level 24 20-31 mmol/L Anion Gap 9 5-15 Blood Urea Nitrogen 13 9-23 mg/dL Creatinine 1.16 H 0.550-1.02 mg/dL Glomerular Filtration Rate Calc 51 >90 mL/min BUN/Creatinine Ratio 11.2 10.0-20.0 Serum Glucose 112 H 74-106 mg/dL Calcium Level 10.5 H 8.7-10.4 mg/dL Magnesium Level 2.2 1.6-2.6 mg/dL Urine Color Colorless Yellow Urine Clarity Clear Clear Urine pH 5.0 5.0-9.0 Urine Specific [place] 1.002 1.001-1.035 Urine Protein Negative Negative Urine Ketones Negative Negative Urine Blood Negative Negative /uL Urine Nitrite Negative Negative Urine Bilirubin Negative Negative Urine Urobilinogen Normal Negative mg/dL Urine Leukocyte Esterase Negative Negative /uL Urine RBC <1 0 - 4 /hpf Urine Microscopic WBC < 1 0-5 /HPF Urine Squamous Epithelial Cells Few <5 /hpf Urine Bacteria None seen None Seen /hpf Urine Glucose 4+ H Normal mg/dL Troponin I High Sensitivity 162 *H 57 *H </=34 ng/L Test 07/06/25 03:52 Range/Units White Blood Count 11.8 H 4.4-10.8 10^3/uL Red Blood Count 3.91 L 4.0-5.20 10^6/uL Hemoglobin 12.4 12.2-16.2 g/dL Hematocrit 38.4 36.0-46.0 % Mean Corpuscular Volume 98.1 80.0-100.0 fL Mean Corpuscular Hemoglobin 31.6 28.0-32.0 pg Mean Corpuscular Hemoglobin Concent 32.2 32.0-36.0 g/dL Red Cell Distribution Width 15.2 H 11.8-14.3 % Platelet Count 196 140-450 10^3/uL Mean Platelet Volume 10.5 6.9-10.8 fL Neutrophils (%) (Auto) 46.6 37.0-80.0 % Lymphocytes (%) (Auto) 42.8 10.0-50.0 % Monocytes (%) (Auto) 8.6 0.0-12.0 % Eosinophils (%) (Auto) 1.4 0.0-7.0 % Basophils (%) (Auto) 0.6 0.0-2.0 % Neutrophils # (Auto) 5.5 1.6-8.6 10 ^3/uL Lymphocytes # (Auto) 5.1 0.4-5.4 10 ^3/uL Monocytes # (Auto) 1.0 0-1.3 10 ^3/uL Eosinophils # (Auto) 0.2 0-0.8 10 ^3/uL Basophils # (Auto) 0.1 0-0.2 10 ^3/uL Nucleated Red Blood Cells 0.1 % Sodium Level 139 136-145 mmol/L Potassium Level 3.6 3.5-5.1 mmol/L Chloride Level 105 98-107 mmol/L Carbon Dioxide Level 17 L 20-31 mmol/L Anion Gap 17 H 5-15 Blood Urea Nitrogen 16 9-23 mg/dL Creatinine 1.53 H 0.550-1.02 mg/dL Glomerular Filtration Rate Calc 37 >90 mL/min BUN/Creatinine Ratio 10.5 10.0-20.0 Serum Glucose 251 H 74-106 mg/dL Calcium Level 10.1 8.7-10.4 mg/dL Magnesium Level 2.2 1.6-2.6 mg/dL Total Bilirubin 0.4 0.2-1.0 mg/dL Aspartate Amino Transferase (AST) 23 13-40 U/L Alanine Aminotransferase (ALT) 14 7-40 U/L Alkaline Phosphatase 95 46-116 U/L Troponin I High Sensitivity 11 </=34 ng/L Total Protein 7.3 5.7-8.2 g/dL Albumin 4.3 3.2-4.8 g/dL Assessment Acute kidney injury hemodynamic mediated etiology Chronic kidney disease 3A Firing of defibrillator Congestive heart failure Plan Renal function improved since admission Renal ultrasound looks okay Urine analysis looks okay Heart failure medications per Cardiology We will follow renal function closely Plan discussed with: Patient SAMUEL SAUER MD Jul 07, 2025 20:00
[2025-07-07] MEDS: ACETAMINOPHEN 325 MG TAB PO PRN (21:19)
--- NOTE | 2025-07-07 22:19 | DVHINCON2 ---
Date of service: Jul 07, 2025 Referring Physician Mo Reason for Consultation Defib firing, v-tach, chest pain History of Present Illness This is a 69year old female with a PMH of A-fib who presented to the ED with a compliant of heart palpitations. Patient reports she does take her medications regularly, Eliquis, Metoprolol. With the past week she has been experiencing palpitations that involves her left chest and left abdomen. Patient already has a database consultant to follow up with. At home, her pacemaker-defibrillator started firing up. Patient rushed out of her house to go seek help from neighbors, however she had a syncopal attack and fell to the ground. Patient states she passed out as paramedics came. She had about 5 episodes of the defibrillator firing up and another 5 with the paramedics. Patient was in Vtach, and was eventually given 81mg of lidocaine which stopped the defibrillator. WBC 12, TROP 57 > 162. Chest x-ray shows NAD. EKG shows atrial-sensed ventricular-paced complexes at 78.Patient was admitted to the hospital. I am asked to consult on this patient. Family History: Autistic disorder 19 CHILD 19 CHILD FH: breast cancer G8 SISTER FH: dementia G8 MOTHER, Allergies: Coded Allergies: NO KNOWN ALLERGIES (Unverified , 03/21/24) Home Meds Active Scripts Pantoprazole Sodium Sesquihydr (Protonix) 40 Mg Tab, 40 MG PO DAILY, #30 TAB Prov:ROSA MARIA HIGGINBOTHAM INTERNATIONAL TRADE MANAGER 05/03/24 Amiodarone Hcl (Amiodarone Hcl) 200 Mg Tab, 400 MG PO BID for 7 Days, #28 TAB Amiodarone 400 mg p.o. twice a day x7 days then 400 mg p.o. daily Prov:ROSA MARIA HIGGINBOTHAM INTERNATIONAL TRADE MANAGER 05/03/24 Amiodarone Hcl (Amiodarone Hcl) 200 Mg Tab, 400 MG PO DAILY for 30 Days, #60 TAB 1 Refill Please see other order for amiodarone. Patient was to receive one week course of 400 mg p.o. twice a day for seven days then followed by 400 daily Prov:ROSA MARIA HIGGINBOTHAM INTERNATIONAL TRADE MANAGER 05/03/24 Ondansetron Odt 4MG Tab (ZOFRAN PO) 4 Mg Tb, 4 MG PO Q4HP PRN for 5 Days, #25 TAB ODT TAB-DISSOLVE IN MOUTH, THEN SWALLOW Prov:IGNACIA ENGEL RESIDENT 04/02/24 Metronidazole (Flagyl) 500 Mg Tab, 500 MG PO TID for 7 Days, #21 TAB Prov:IGNACIA ENGEL RESIDENT 04/02/24 Ciprofloxacin Hcl (Cipro) 500 Mg Tab, 1 TAB PO BID for 7 Days, #14 TAB Prov:IGNACIA ENGEL RESIDENT 04/02/24 Metoprolol Tartrate (Metoprolol Tartrate) 25 Mg Tab, 25 MG PO DAILY for 30 Days, #30 MG 2 Refills Prov:ROXANA WU RESIDENT 03/23/24 Reported Medications Buspirone Hcl (Buspirone Hcl) 10 Mg Tab, 10 MG PO Q12HR for 30 Days, MG 04/02/24 Magnesium Oxide (MAGNESIUM OXIDE) 400 Mg Tab, 1 TAB PO DAILY, #30 TAB 5 Refills 03/22/24 Sacubitril-Valsartan (Entresto 24-26 mg) 1 Tab Tab, 1 TAB PO BID, TAB 03/22/24 Apixaban Base (ELIQUIS) 5 Mg Tab, 5 MG PO BID, TAB 03/22/24 Review of Systems CONSTITUTIONAL: Denies acute: fever, diaphoresis, chills, generalized weakness. HEAD: Denies acute: photophobia Eyes: Denies acute: Double vision, vision loss, eye pain, eye discharge. EARS: Denies acute: tinnitus, hearing loss, ear discharge, ear pain, THROAT: Denies acute: sore throat, swelling, difficulty swallowing , pain with swallowing, change in voice. NECK: Denies acute: neck pain, neck swelling, stiff neck. HEART: Denies acute : chest pain, palpitations, LUNGS: Denies acute: SOB, wheezing, cough, hemoptysis ABDOMEN: Denies acute: abdominal pain, Nausea, Vomiting, diarrhea, melena , hematemesis, hematochezia SKIN: Denies acute: rash, redness, lesions, itchiness. EXTREMITIES: Denies acute: calf pain, numbness, tingling, weakness, denies pain in extremity. Denies acute: Low back pain. Neuro: Denies acute: focal neurological deficit, motor or sensory focal neurological de ficit, tremors, seizure like activity, confusion, dizziness, change in mental status, loss of bowel or bladder function, cauda equina like symptoms. : Denies acute: dysuria, hematuria, flank pain, increase in urinary frequency. PSYCH: Denies acute: hallucination, suicidal ideation, homicidal ideation. FEMALE: Denies acute: abnormal vaginal bleeding, foul odor, unusual discharge. Vital Signs Vital Signs Date Time Temp Pulse Resp B/P (MAP) Pulse Ox O2 Delivery O2 Flow Rate FiO2 07/07/25 21:00 96.5 96 16 119/70 (86) 97 96.5 07/07/25 19:59 Room Air* 0 21 Physical Exam GENERAL: Alert and oriented x 3. No acute distress. EYES: PERRL, EOMI. Anicteric. HENT: Moist mucous membranes. LUNGS: Clear to auscultation bilaterally. CARDIOVASCULAR: Regular rate and rhythm. ABDOMEN: Soft, nontender and nondistended. EXTREMITIES: No edema. NEUROLOGIC: No focal neurological deficits. SKIN: Warm, dry. Labs/Diagnostic Data Labs Test 07/07/25 10:41 07/07/25 01:20 07/06/25 06:39 07/06/25 03:52 Range/Units White Blood Count 12.0 H 4.4-10.8 10^3/uL Red Blood Count 3.96 L 4.0-5.20 10^6/uL Hemoglobin 12.7 12.2-16.2 g/dL Hematocrit 37.9 36.0-46.0 % Mean Corpuscular Volume 95.7 80.0-100.0 fL Mean Corpuscular Hemoglobin 32.0 28.0-32.0 pg Mean Corpuscular Hemoglobin Concent 33.4 32.0-36.0 g/dL Red Cell Distribution Width 14.5 H 11.8-14.3 % Platelet Count 188 140-450 10^3/uL Mean Platelet Volume 10.8 6.9-10.8 fL Neutrophils (%) (Auto) 69.9 37.0-80.0 % Lymphocytes (%) (Auto) 21.3 10.0-50.0 % Monocytes (%) (Auto) 7.7 0.0-12.0 % Eosinophils (%) (Auto) 0.7 0.0-7.0 % Basophils (%) (Auto) 0.4 0.0-2.0 % Neutrophils # (Auto) 8.4 1.6-8.6 10 ^3/uL Lymphocytes # (Auto) 2.6 0.4-5.4 10 ^3/uL Monocytes # (Auto) 0.9 0-1.3 10 ^3/uL Eosinophils # (Auto) 0.1 0-0.8 10 ^3/uL Basophils # (Auto) 0 0-0.2 10 ^3/uL Nucleated Red Blood Cells 0.0 % Sodium Level 141 136-145 mmol/L Potassium Level 4.5 3.5-5.1 mmol/L Chloride Level 108 H 98-107 mmol/L Carbon Dioxide Level 24 20-31 mmol/L Anion Gap 9 5-15 Blood Urea Nitrogen 13 9-23 mg/dL Creatinine 1.16 H 0.550-1.02 mg/dL Glomerular Filtration Rate Calc 51 >90 mL/min BUN/Creatinine Ratio 11.2 10.0-20.0 Serum Glucose 112 H 74-106 mg/dL Calcium Level 10.5 H 8.7-10.4 mg/dL Magnesium Level 2.2 1.6-2.6 mg/dL Urine Color Colorless Yellow Urine Clarity Clear Clear Urine pH 5.0 5.0-9.0 Urine Specific [place] 1.002 1.001-1.035 Urine Protein Negative Negative Urine Ketones Negative Negative Urine Blood Negative Negative /uL Urine Nitrite Negative Negative Urine Bilirubin Negative Negative Urine Urobilinogen Normal Negative mg/dL Urine Leukocyte Esterase Negative Negative /uL Urine RBC <1 0 - 4 /hpf Urine Microscopic WBC < 1 0-5 /HPF Urine Squamous Epithelial Cells Few <5 /hpf Urine Bacteria None seen None Seen /hpf Urine Glucose 4+ H Normal mg/dL Troponin I High Sensitivity 162 *H </=34 ng/L Total Bilirubin 0.4 0.2-1.0 mg/dL Aspartate Amino Transferase (AST) 23 13-40 U/L Alanine Aminotransferase (ALT) 14 7-40 U/L Alkaline Phosphatase 95 46-116 U/L Total Protein 7.3 5.7-8.2 g/dL Albumin 4.3 3.2-4.8 g/dL Assessment Defibrillator discharge. Syncope. Left knee pain. RENZO on CKD. Plan/Recommendation I agree with your ongoing assessment and care of plan. Echocardiogram. Dilaudid and [place] for pain management. Amiodarone. Eliquis. Metoprolol. Entresto. Nitro SL. Additional plan as per the hospital course. A total of 45 minutes was spent reviewing the patient record, examining the patient, making a diagnostic and therapeutic plan, discussing this plan with medical personnel, following up on diagnostic studies and following the patient for clinical stability excluding any and all procedures. At least 50% of this time was spent in direct, [id number] contact. Plan discussed with: Patient DARSHAN LU MD Jul 07, 2025 21:51
[2025-07-08] VITALS (9 sets, daily range): BP systolic 99–126; BP diastolic 51–76; PULSE 70–89; RESP 16–17; TEMP 96–98.2; O2SAT 95–98
[2025-07-08 06:30] LABS: Anion Gap 10 (5-15); Carbon Dioxide 23 mmol/L (20-31); Potassium 4.3 mmol/L (3.5-5.1); Sodium 140 mmol/L (136-145)
[2025-07-08 06:31] LABS: Calcium 10.3 mg/dL (8.7-10.4)
[2025-07-08 06:32] LABS: Chloride 107 mmol/L (98-107)
[2025-07-08 06:36] LABS: BUN/Creatinine Ratio 13.1 (10.0-20.0); Blood Urea Nitrogen 14 mg/dL (9-23); Glucose 102 mg/dL (74-106)
[2025-07-08 06:37] LABS: Magnesium 2.1 mg/dL (1.6-2.6)
[2025-07-08 06:41] LABS: Hematocrit 35.3 % (36.0-46.0); Hemoglobin 12.2 g/dL (12.2-16.2); Mean Corpuscular Hemoglobin 32.7 pg (28.0-32.0); Mean Corpuscular Volume 95.1 fL (80.0-100.0); Nucleated Red Blood Cells % 0.3 %
--- NOTE | 2025-07-08 12:05 | DVHPN2 ---
Progress Note Date Seen: Jul 08, 2025 Medical Necessity Reason Pt with a Central, PICC or Fol: No Objective vital signs Vital Sign Date Time Temp Pulse Resp B/P (MAP) Pulse Ox O2 Delivery O2 Flow Rate FiO2 07/08/25 09:00 98.0 75 16 111/58 (75) 98 98.0 07/08/25 08:00 Room Air* 0 21 Total Intake and Output 07/07/25 07/07/25 07/08/25 15:00 23:00 07:00 Intake Total 1800 ml 650 ml Balance 1800 ml 650 ml medications Current Medications Medications Dose Ordered Sig/Lexi Route Start Time Stop Time Status Last Admin Dose Admin Sodium Chloride 10 ml Q8HR IV 07/06/25 14:00 07/08/25 05:08 10 ML Docusate Sodium 100 mg BIDPRN PRN PO 07/06/25 08:45 Acetaminophen 650 mg Q6HP PRN PO 07/06/25 08:45 07/07/25 21:19 650 MG Acetaminophen/ Hydrocodone Bitart 1 tab Q4HP PRN PO 07/06/25 08:45 07/08/25 09:25 1 TAB Hydromorphone HCl 0.5 mg Q4HP PRN IV 07/06/25 08:45 Ondansetron HCl 4 mg Q4HP PRN IV 07/06/25 08:45 Nitroglycerin 0.4 mg Q5MINP PRN SL 07/06/25 08:45 Morphine Sulfate 2 mg Q30M PRN IV 07/06/25 08:45 Amiodarone HCl 400 mg BID PO 07/06/25 10:00 07/08/25 09:26 400 MG Apixaban 5 mg BID PO 07/06/25 10:00 07/08/25 09:26 5 MG Buspirone HCl 10 mg Q12HR PO 07/06/25 10:00 07/08/25 09:27 10 MG Metoprolol Tartrate 25 mg DAILY PO 07/06/25 10:00 Sacubitril/ Valsartan 1 tab BID PO 07/06/25 10:00 07/08/25 09:27 1 TAB Examination: GENERAL:Normal, CVS:Abnormal laboratory and microbiology Laboratory Tests 07/08/25 05:25 Test 07/08/25 05:25 Range/Units Serum Glucose 102 74-106 mg/dL Problem List/Assessment/Plan Problem List/Assessment/Plan Acute kidney injury hemodynamic mediated etiology Chronic kidney disease 3A Firing of defibrillator Congestive heart failure Plan Renal function improved since admission Renal ultrasound wnl Heart failure medications per Cardiology We will follow renal function closely Plan discussed with: Patient JACIKE CHILD MD Jul 08, 2025 12:05
--- NOTE | 2025-07-08 15:17 | DVHPN2 ---
Reviewed: H&P Changes from previous H/P or p: No Changes General: Per HPI Objective Vitals Vital Signs Date Time Temp Pulse Resp B/P (MAP) Pulse Ox O2 Delivery O2 Flow Rate FiO2 07/08/25 12:55 97.9 70 16 103/51 (68) 98 97.9 07/08/25 08:00 Room Air* 0 21 Intake/Output Intake and Output 07/08/25 07:00 Intake Total 2450 ml Balance 2450 ml Intake Oral 2450 ml # Voids 6 General Appearance: Alert, Oriented X3 HEENT: Atraumatic Lungs: Clear to auscultation Cardiovascular: Regular rate, Normal S1, Normal S2 Abdomen: Normal bowel sounds Medications Current Medications Medications Dose Ordered Sig/Lexi Route Start Time Stop Time Status Last Admin Dose Admin Sodium Chloride 10 ml Q8HR IV 07/06/25 14:00 07/08/25 13:11 10 ML Docusate Sodium 100 mg BIDPRN PRN PO 07/06/25 08:45 Acetaminophen 650 mg Q6HP PRN PO 07/06/25 08:45 07/07/25 21:19 650 MG Acetaminophen/ Hydrocodone Bitart 1 tab Q4HP PRN PO 07/06/25 08:45 07/08/25 09:25 1 TAB Hydromorphone HCl 0.5 mg Q4HP PRN IV 07/06/25 08:45 Ondansetron HCl 4 mg Q4HP PRN IV 07/06/25 08:45 Nitroglycerin 0.4 mg Q5MINP PRN SL 07/06/25 08:45 Morphine Sulfate 2 mg Q30M PRN IV 07/06/25 08:45 Amiodarone HCl 400 mg BID PO 07/06/25 10:00 07/08/25 09:26 400 MG Apixaban 5 mg BID PO 07/06/25 10:00 07/08/25 09:26 5 MG Buspirone HCl 10 mg Q12HR PO 07/06/25 10:00 07/08/25 09:27 10 MG Metoprolol Tartrate 25 mg DAILY PO 07/06/25 10:00 Sacubitril/ Valsartan 1 tab BID PO 07/06/25 10:00 07/08/25 09:27 1 TAB Laboratory Results Laboratory Tests 07/08/25 05:25 Chemistry Test 07/08/25 05:25 Calcium Level 10.3 mg/dL (8.7-10.4) Magnesium Level 2.1 mg/dL (1.6-2.6) Urinalysis Test 07/07/25 01:20 Urine Color Colorless (Yellow) Urine Clarity Clear (Clear) Urine pH 5.0 (5.0-9.0) Urine Specific [place] 1.002 (1.001-1.035) Urine Protein Negative (Negative) Urine Ketones Negative (Negative) Urine Blood Negative /uL (Negative) Urine Nitrite Negative (Negative) Urine Bilirubin Negative (Negative) Urine Urobilinogen Normal mg/dL (Negative) Urine Leukocyte Esterase Negative /uL (Negative) Urine RBC <1 /hpf (0 - 4) Urine Microscopic WBC < 1 /HPF (0-5) Urine Squamous Epithelial Cells Few /hpf (<5) Urine Bacteria None seen /hpf (None Seen) Urine Glucose 4+ mg/dL (Normal) H Labs and/or images reviewed: Labs reviewed by me, Image(s) reviewed by me Assessment/Plan Assessment/Plan 69F presents to the ER w/ prior Hx of Pre-DM, HFrEF, hypothyroidism, history NSVTs, HTN and pacemaker. Patient was seen here earlier at the ER for palpitations. Patient does have history of AFib, does take her medications regularly, Eliquis, metoprolol. With the past week she has been experiencing palpitations that involves her left chest and left abdomen. Patient already has a hardware installation coordinator to follow up with. Diagnostics was done and discharged improved with instructions. At home, her pacemaker-defibrillator started firing up. Patient rushed out of her house to go seek help from neighbors, however she had a syncopal attack and fell to the ground. Patient states she passed out as paramedics came. She had about 5 episodes of the defibrillator firing up and another 5 with the paramedics. Patient was on Vtach, and was eventually given 81mg of lidocaine which stopped the defibrillator. Blood pressure on scene was 118/70 mmHg 07/08: Patient presented with feeling of discharge from AICD. We will get device check today. Patient's primary hardware installation coordinator is Dr. Pa, we will consult Dr. Pa for following. Diagnosis: Defibrillator discharge Syncope Left knee pain RENZO on CKD HFrEF (EF 5%) Prediabetes History of thyroid dizzy History of hypertension Plan: cardiology consulted ACID check entresto, eliquis, amiodarone daily bmp Tele Full code Plan discussed with: Patient My Orders Orders - VIJI TAVERAS MD Procedure Category Date Status Time Copper Plate Lithographer To Assess ORDERS 07/08/25 Transmitted Pacemaker 12:36 * Cardiology Consult CONS 07/08/25 Transmitted 13:12 Date of Service: Jul 08, 2025 Billing Provider: VIJI TAVERAS MD Common Visit Codes: [id number] INP/OBS CARE(HIGH) VIJI TAVERAS MD Jul 08, 2025 15:17
[2025-07-08] MEDS ORDERED: DAPA1TAB4 PO (15:34)
[2025-07-08] MEDS: hydrOXYzine 25 MG TAB or CAP PO PRN (17:35)
--- NOTE | 2025-07-08 23:58 | DVHPN2 ---
Progress Note - Dictate Date Seen: Jul 08, 2025 Medical Necessity Reason Pt with a Central, PICC or Fol: No Subjective Patient was seen and evaluated in follow up. Patient is c/o intermittent chest pain. Echocardiogram shows LV EF of only 5%. CBC and chemistry are WNL. Telemetry reviewed. vital signs Vital Sign Date Time Temp Pulse Resp B/P (MAP) Pulse Ox O2 Delivery O2 Flow Rate FiO2 07/08/25 21:00 97.7 89 16 126/73 (90) 96 97.7 07/08/25 19:53 Room Air* 0 21 Total Intake and Output 07/07/25 07/07/25 07/08/25 15:00 23:00 07:00 Intake Total 1800 ml 650 ml Balance 1800 ml 650 ml medications Current Medications Medications Dose Ordered Sig/Lexi Route Start Time Stop Time Status Last Admin Dose Admin Sodium Chloride 10 ml Q8HR IV 07/06/25 14:00 07/08/25 21:44 10 ML Docusate Sodium 100 mg BIDPRN PRN PO 07/06/25 08:45 Acetaminophen 650 mg Q6HP PRN PO 07/06/25 08:45 07/07/25 21:19 650 MG Acetaminophen/ Hydrocodone Bitart 1 tab Q4HP PRN PO 07/06/25 08:45 07/08/25 09:25 1 TAB Hydromorphone HCl 0.5 mg Q4HP PRN IV 07/06/25 08:45 Ondansetron HCl 4 mg Q4HP PRN IV 07/06/25 08:45 Nitroglycerin 0.4 mg Q5MINP PRN SL 07/06/25 08:45 Morphine Sulfate 2 mg Q30M PRN IV 07/06/25 08:45 Amiodarone HCl 400 mg BID PO 07/06/25 10:00 07/08/25 21:44 400 MG Apixaban 5 mg BID PO 07/06/25 10:00 07/08/25 21:44 5 MG Buspirone HCl 10 mg Q12HR PO 07/06/25 10:00 07/08/25 21:44 10 MG Metoprolol Tartrate 25 mg DAILY PO 07/06/25 10:00 Sacubitril/ Valsartan 1 tab BID PO 07/06/25 10:00 07/08/25 21:44 1 TAB Hydroxyzine Pamoate 25 mg Q8HPRN PRN PO 07/08/25 17:45 objective GENERAL: Alert and oriented x 3. No acute distress. EYES: PERRL, EOMI. Anicteric. HENT: Moist mucous membranes. LUNGS: Clear to auscultation bilaterally. CARDIOVASCULAR: Regular rate and rhythm. ABDOMEN: Soft, nontender and nondistended. EXTREMITIES: No edema. NEUROLOGIC: No focal neurological deficits. SKIN: Warm, dry. laboratory and microbiology Laboratory Tests 07/08/25 05:25 Test 07/08/25 05:25 Range/Units Serum Glucose 102 74-106 mg/dL Problem List Defibrillator discharge. Syncope. Left knee pain. RENZO on CKD. Assessment/Plan Continued all current supportive medical care. Dilaudid and [place] for pain management. Amiodarone. Eliquis. Metoprolol. Entresto. Nitro SL. Additional plan as per the hospital course. Plan discussed with: Patient DARSHAN LU MD Jul 08, 2025 23:58
[2025-07-09] VITALS (8 sets, daily range): BP systolic 101–121; BP diastolic 42–74; PULSE 75–100; RESP 16–18; TEMP 97–98.1; O2SAT 95–97
[2025-07-09 06:45] LABS: Hematocrit 38.1 % (36.0-46.0); Hemoglobin 13.0 g/dL (12.2-16.2); Mean Corpuscular Hemoglobin 32.8 pg (28.0-32.0); Mean Corpuscular Volume 95.9 fL (80.0-100.0); Nucleated Red Blood Cells % 0.0 %
[2025-07-09 06:54] LABS: Alanine Aminotransferase 22 U/L (7-40); Albumin 4.3 g/dL (3.2-4.8); Alkaline Phosphatase 79 U/L (46-116); Anion Gap 11 (5-15); BUN/Creatinine Ratio 14.3 (10.0-20.0); Blood Urea Nitrogen 16 mg/dL (9-23); Carbon Dioxide 22 mmol/L (20-31); Chloride 106 mmol/L (98-107); Glucose 102 mg/dL (74-106); Magnesium 2.0 mg/dL (1.6-2.6); Potassium 4.3 mmol/L (3.5-5.1); Sodium 139 mmol/L (136-145); Total Protein 7.4 g/dL (5.7-8.2)
[2025-07-09 06:55] LABS: Bilirubin, Total 1.1 mg/dL (0.2-1.0); Calcium 10.7 mg/dL (8.7-10.4)
[2025-07-09] MEDS: DOCUSATE SOD 100 MG CAP PO PRN (09:20)
[2025-07-09] MEDS: hydrOXYzine 25 MG TAB or CAP PO PRN (09:21)
--- NOTE | 2025-07-09 10:07 | DVHPN2 ---
Reviewed: H&P Changes from previous H/P or p: No Changes General: Per HPI Objective Vitals Vital Signs Date Time Temp Pulse Resp B/P (MAP) Pulse Ox O2 Delivery O2 Flow Rate FiO2 07/09/25 09:23 83 101/70 07/09/25 08:57 98.1 18 97 98.1 07/08/25 19:53 Room Air* 0 21 Intake/Output Intake and Output 07/09/25 07:00 Intake Total 1860 ml Balance 1860 ml Intake Oral 1860 ml # Voids 6 General Appearance: Alert, Oriented X3 HEENT: Atraumatic Lungs: Clear to auscultation Cardiovascular: Regular rate, Normal S1, Normal S2 Abdomen: Normal bowel sounds Medications Current Medications Medications Dose Ordered Sig/Lexi Route Start Time Stop Time Status Last Admin Dose Admin Sodium Chloride 10 ml Q8HR IV 07/06/25 14:00 07/09/25 06:00 10 ML Docusate Sodium 100 mg BIDPRN PRN PO 07/06/25 08:45 07/09/25 09:20 100 MG Acetaminophen 650 mg Q6HP PRN PO 07/06/25 08:45 07/07/25 21:19 650 MG Acetaminophen/ Hydrocodone Bitart 1 tab Q4HP PRN PO 07/06/25 08:45 07/09/25 09:22 1 TAB Hydromorphone HCl 0.5 mg Q4HP PRN IV 07/06/25 08:45 Ondansetron HCl 4 mg Q4HP PRN IV 07/06/25 08:45 Nitroglycerin 0.4 mg Q5MINP PRN SL 07/06/25 08:45 Morphine Sulfate 2 mg Q30M PRN IV 07/06/25 08:45 Amiodarone HCl 400 mg BID PO 07/06/25 10:00 07/09/25 09:21 400 MG Apixaban 5 mg BID PO 07/06/25 10:00 07/09/25 09:20 5 MG Buspirone HCl 10 mg Q12HR PO 07/06/25 10:00 07/09/25 09:21 10 MG Metoprolol Tartrate 25 mg DAILY PO 07/06/25 10:00 Sacubitril/ Valsartan 1 tab BID PO 07/06/25 10:00 07/09/25 09:21 1 TAB Hydroxyzine Pamoate 25 mg Q8HPRN PRN PO 07/08/25 17:45 07/09/25 09:21 25 MG Laboratory Results Laboratory Tests 07/09/25 05:45 Chemistry Test 07/09/25 05:45 Albumin 4.3 g/dL (3.2-4.8) Calcium Level 10.7 mg/dL (8.7-10.4) H Magnesium Level 2.0 mg/dL (1.6-2.6) Total Protein 7.4 g/dL (5.7-8.2) LFT Test 07/09/25 05:45 Alanine Aminotransferase (ALT) 22 U/L (7-40) Alkaline Phosphatase 79 U/L (46-116) Aspartate Amino Transferase (AST) 45 U/L (13-40) H Total Bilirubin 1.1 mg/dL (0.2-1.0) H Urinalysis Test 07/07/25 01:20 Urine Color Colorless (Yellow) Urine Clarity Clear (Clear) Urine pH 5.0 (5.0-9.0) Urine Specific [place] 1.002 (1.001-1.035) Urine Protein Negative (Negative) Urine Ketones Negative (Negative) Urine Blood Negative /uL (Negative) Urine Nitrite Negative (Negative) Urine Bilirubin Negative (Negative) Urine Urobilinogen Normal mg/dL (Negative) Urine Leukocyte Esterase Negative /uL (Negative) Urine RBC <1 /hpf (0 - 4) Urine Microscopic WBC < 1 /HPF (0-5) Urine Squamous Epithelial Cells Few /hpf (<5) Urine Bacteria None seen /hpf (None Seen) Urine Glucose 4+ mg/dL (Normal) H Labs and/or images reviewed: Labs reviewed by me, Image(s) reviewed by me Assessment/Plan Assessment/Plan 69F presents to the ER w/ prior Hx of Pre-DM, HFrEF, hypothyroidism, history NSVTs, HTN and pacemaker. Patient was seen here earlier at the ER for palpitations. Patient does have history of AFib, does take her medications regularly, Eliquis, metoprolol. With the past week she has been experiencing palpitations that involves her left chest and left abdomen. Patient already has a cloth opener hand to follow up with. Diagnostics was done and discharged improved with instructions. At home, her pacemaker-defibrillator started firing up. Patient rushed out of her house to go seek help from neighbors, however she had a syncopal attack and fell to the ground. Patient states she passed out as paramedics came. She had about 5 episodes of the defibrillator firing up and another 5 with the paramedics. Patient was on Vtach, and was eventually given 81mg of lidocaine which stopped the defibrillator. Blood pressure on scene was 118/70 mmHg 07/08: Patient presented with feeling of discharge from AICD. We will get device check today. Patient's primary cloth opener hand is Dr. Pa, we will consult Dr. Pa for following. 07/09: Patient doing well, no AICD firing on tele monitoring. No symptoms, Dr. Pa made aware of multiple AICD shocks on 07/06., Currently on tele patient is being paste at rate of 80, patient has some few start stretches of NSVT. Longest duration of NSVT is about approximately 10 beats appearing multiple times through the day. Diagnosis: Defibrillator discharge Syncope Left knee pain RENZO on CKD HFrEF (EF 5%) Prediabetes History of thyroid dizzy History of hypertension Plan: cardiology consulted ACID check entresto, eliquis, amiodarone daily bmp Tele Full code Plan discussed with: Patient My Orders Orders - VIJI TAVERAS MD Procedure Category Date Status Time Dump Grounds Checker To Assess ORDERS 07/08/25 Transmitted Pacemaker 12:36 * Cardiology Consult CONS 07/08/25 Transmitted 13:12 Hydroxyzine Oral PHA 07/08/25 In Process (Vistaril Oral) 17:45 Cleanse Wound With MILAGROS 07/08/25 In Process Wound Clean 11:50 * Dietary Consult CONS 07/08/25 Transmitted 17:48 Date of Service: Jul 09, 2025 Billing Provider: VIJI TAVERAS MD Common Visit Codes: [id number] INP/OBS CARE(HIGH) VIJI TAVERAS MD Jul 09, 2025 10:06
--- NOTE | 2025-07-09 11:13 | DVHPN2 ---
Progress Note Date Seen: Jul 09, 2025 Medical Necessity Reason Pt with a Central, PICC or Fol: No Objective vital signs Vital Sign Date Time Temp Pulse Resp B/P (MAP) Pulse Ox O2 Delivery O2 Flow Rate FiO2 07/09/25 09:23 83 101/70 07/09/25 08:57 98.1 18 97 98.1 07/08/25 19:53 Room Air* 0 21 Total Intake and Output 07/08/25 07/08/25 07/09/25 15:00 23:00 07:00 Intake Total 1360 ml 500 ml Balance 1360 ml 500 ml medications Current Medications Medications Dose Ordered Sig/Lexi Route Start Time Stop Time Status Last Admin Dose Admin Sodium Chloride 10 ml Q8HR IV 07/06/25 14:00 07/09/25 06:00 10 ML Docusate Sodium 100 mg BIDPRN PRN PO 07/06/25 08:45 07/09/25 09:20 100 MG Acetaminophen 650 mg Q6HP PRN PO 07/06/25 08:45 07/07/25 21:19 650 MG Acetaminophen/ Hydrocodone Bitart 1 tab Q4HP PRN PO 07/06/25 08:45 07/09/25 09:22 1 TAB Hydromorphone HCl 0.5 mg Q4HP PRN IV 07/06/25 08:45 Ondansetron HCl 4 mg Q4HP PRN IV 07/06/25 08:45 Nitroglycerin 0.4 mg Q5MINP PRN SL 07/06/25 08:45 Morphine Sulfate 2 mg Q30M PRN IV 07/06/25 08:45 Amiodarone HCl 400 mg BID PO 07/06/25 10:00 07/09/25 09:21 400 MG Apixaban 5 mg BID PO 07/06/25 10:00 07/09/25 09:20 5 MG Buspirone HCl 10 mg Q12HR PO 07/06/25 10:00 07/09/25 09:21 10 MG Metoprolol Tartrate 25 mg DAILY PO 07/06/25 10:00 Sacubitril/ Valsartan 1 tab BID PO 07/06/25 10:00 07/09/25 09:21 1 TAB Hydroxyzine Pamoate 25 mg Q8HPRN PRN PO 07/08/25 17:45 07/09/25 09:21 25 MG laboratory and microbiology Laboratory Tests 07/09/25 05:45 Test 07/09/25 05:45 Range/Units Serum Glucose 102 74-106 mg/dL Problem List/Assessment/Plan Problem List/Assessment/Plan Acute kidney injury hemodynamic mediated etiology Chronic kidney disease 3A Firing of defibrillator Congestive heart failure Plan Renal function improved since admission Renal ultrasound wnl Heart failure medications per Cardiology We will follow renal function closely, will sign off the case Plan discussed with: Patient JACKIE CHILD MD Jul 09, 2025 11:13
[2025-07-09] MEDS: BACLOFEN 10 MG TAB PO SCH (21:50)
--- NOTE | 2025-07-09 23:42 | DVHPN2 ---
Progress Note - Dictate Date Seen: Jul 09, 2025 Medical Necessity Reason Pt with a Central, PICC or Fol: No Subjective Patient was seen and evaluated in follow up. Patient remains with intermittent chest pain. Awaiting pacemaker report from [employer]. WBC 15.8, CRT1.12, AST 45. Telemetry reviewed. vital signs Vital Sign Date Time Temp Pulse Resp B/P (MAP) Pulse Ox O2 Delivery O2 Flow Rate FiO2 07/09/25 13:00 98.1 91 18 111/42 (65) 97 98.1 07/09/25 08:00 Room Air* 0 21 Total Intake and Output 07/08/25 07/08/25 07/09/25 15:00 23:00 07:00 Intake Total 1360 ml 500 ml Balance 1360 ml 500 ml medications Current Medications Medications Dose Ordered Sig/Lexi Route Start Time Stop Time Status Last Admin Dose Admin Sodium Chloride 10 ml Q8HR IV 07/06/25 14:00 07/09/25 13:27 10 ML Docusate Sodium 100 mg BIDPRN PRN PO 07/06/25 08:45 07/09/25 09:20 100 MG Acetaminophen 650 mg Q6HP PRN PO 07/06/25 08:45 07/07/25 21:19 650 MG Acetaminophen/ Hydrocodone Bitart 1 tab Q4HP PRN PO 07/06/25 08:45 07/09/25 09:22 1 TAB Hydromorphone HCl 0.5 mg Q4HP PRN IV 07/06/25 08:45 Ondansetron HCl 4 mg Q4HP PRN IV 07/06/25 08:45 Nitroglycerin 0.4 mg Q5MINP PRN SL 07/06/25 08:45 Morphine Sulfate 2 mg Q30M PRN IV 07/06/25 08:45 Amiodarone HCl 400 mg BID PO 07/06/25 10:00 07/09/25 09:21 400 MG Apixaban 5 mg BID PO 07/06/25 10:00 07/09/25 09:20 5 MG Buspirone HCl 10 mg Q12HR PO 07/06/25 10:00 07/09/25 09:21 10 MG Metoprolol Tartrate 25 mg DAILY PO 07/06/25 10:00 Sacubitril/ Valsartan 1 tab BID PO 07/06/25 10:00 07/09/25 09:21 1 TAB Hydroxyzine Pamoate 25 mg Q8HPRN PRN PO 07/08/25 17:45 07/09/25 09:21 25 MG objective GENERAL: Alert and oriented x 3. No acute distress. EYES: PERRL, EOMI. Anicteric. HENT: Moist mucous membranes. LUNGS: Clear to auscultation bilaterally. CARDIOVASCULAR: Regular rate and rhythm. ABDOMEN: Soft, nontender and nondistended. EXTREMITIES: No edema. NEUROLOGIC: No focal neurological deficits. SKIN: Warm, dry. laboratory and microbiology Laboratory Tests 07/09/25 05:45 Test 07/09/25 05:45 Range/Units Serum Glucose 102 74-106 mg/dL Problem List Defibrillator discharge. Syncope. Left knee pain. RENZO on CKD. Assessment/Plan Continued all current supportive medical care. Dilaudid and [place] for pain management. Amiodarone. Eliquis. Entresto. Nitro SL. Additional plan as per the hospital course. Plan discussed with: Patient DARSHAN LU MD Jul 09, 2025 13:41
[2025-07-10] VITALS (9 sets, daily range): BP systolic 105–121; BP diastolic 53–71; PULSE 80–85; RESP 16–18; TEMP 98–98.4; O2SAT 95–96
[2025-07-10 07:11] LABS: Hematocrit 38.1 % (36.0-46.0); Hemoglobin 13.1 g/dL (12.2-16.2); Mean Corpuscular Hemoglobin 32.7 pg (28.0-32.0); Mean Corpuscular Volume 95.0 fL (80.0-100.0); Nucleated Red Blood Cells % 0.1 %
[2025-07-10 07:16] LABS: Alanine Aminotransferase 20 U/L (7-40); Albumin 4.3 g/dL (3.2-4.8); Alkaline Phosphatase 84 U/L (46-116); Anion Gap 12 (5-15); BUN/Creatinine Ratio 16.8 (10.0-20.0); Blood Urea Nitrogen 18 mg/dL (9-23); Carbon Dioxide 22 mmol/L (20-31); Chloride 103 mmol/L (98-107); Magnesium 2.0 mg/dL (1.6-2.6); Potassium 4.7 mmol/L (3.5-5.1); Sodium 137 mmol/L (136-145); Total Protein 7.3 g/dL (5.7-8.2)
[2025-07-10 07:17] LABS: Bilirubin, Total 1.2 mg/dL (0.2-1.0)
[2025-07-10 07:24] LABS: Calcium 10.8 mg/dL (8.7-10.4); Glucose 118 mg/dL (74-106)
--- NOTE | 2025-07-10 09:58 | DVH ---
CLINICAL INDICATION: Right Shoulder Pain TECHNIQUE: 1 radiographic views of the right shoulder were obtained. Comparison: None FINDINGS/IMPRESSION: There is no evidence of acute fracture or dislocation. The visualized joint space is well maintained. Calcific tendinopathy of the supraspinatus tendon. The alignment is anatomical. There is no radiopaque foreign body.
--- NOTE | 2025-07-10 11:58 | DVHPN2 ---
Reviewed: H&P Changes from previous H/P or p: No Changes General: Per HPI Objective Vitals Vital Signs Date Time Temp Pulse Resp B/P (MAP) Pulse Ox O2 Delivery O2 Flow Rate FiO2 07/10/25 09:34 83 116/53 07/10/25 08:38 98.1 18 95 98.1 07/10/25 08:00 Room Air* 0 21 Intake/Output Intake and Output 07/10/25 07:00 Intake Total 2100 ml Balance 2100 ml Intake Oral 2100 ml # Voids 7 General Appearance: Alert, Oriented X3 HEENT: Atraumatic Lungs: Clear to auscultation Cardiovascular: Regular rate, Normal S1, Normal S2 Abdomen: Normal bowel sounds Medications Current Medications Medications Dose Ordered Sig/Lexi Route Start Time Stop Time Status Last Admin Dose Admin Sodium Chloride 10 ml Q8HR IV 07/06/25 14:00 07/10/25 05:39 10 ML Docusate Sodium 100 mg BIDPRN PRN PO 07/06/25 08:45 07/09/25 09:20 100 MG Acetaminophen 650 mg Q6HP PRN PO 07/06/25 08:45 07/07/25 21:19 650 MG Acetaminophen/ Hydrocodone Bitart 1 tab Q4HP PRN PO 07/06/25 08:45 07/09/25 14:44 1 TAB Hydromorphone HCl 0.5 mg Q4HP PRN IV 07/06/25 08:45 Ondansetron HCl 4 mg Q4HP PRN IV 07/06/25 08:45 Nitroglycerin 0.4 mg Q5MINP PRN SL 07/06/25 08:45 Morphine Sulfate 2 mg Q30M PRN IV 07/06/25 08:45 Amiodarone HCl 400 mg BID PO 07/06/25 10:00 07/10/25 09:32 400 MG Apixaban 5 mg BID PO 07/06/25 10:00 07/10/25 09:32 5 MG Buspirone HCl 10 mg Q12HR PO 07/06/25 10:00 07/10/25 09:32 10 MG Metoprolol Tartrate 25 mg DAILY PO 07/06/25 10:00 Sacubitril/ Valsartan 1 tab BID PO 07/06/25 10:00 07/10/25 09:32 1 TAB Hydroxyzine Pamoate 25 mg Q8HPRN PRN PO 07/08/25 17:45 07/09/25 09:21 25 MG Baclofen 10 mg BID PO 07/09/25 22:00 07/10/25 09:31 10 MG Laboratory Results Laboratory Tests 07/10/25 06:37 Chemistry Test 07/10/25 06:37 Albumin 4.3 g/dL (3.2-4.8) Calcium Level 10.8 mg/dL (8.7-10.4) H Magnesium Level 2.0 mg/dL (1.6-2.6) Total Protein 7.3 g/dL (5.7-8.2) LFT Test 07/10/25 06:37 Alanine Aminotransferase (ALT) 20 U/L (7-40) Alkaline Phosphatase 84 U/L (46-116) Aspartate Amino Transferase (AST) 36 U/L (13-40) Total Bilirubin 1.2 mg/dL (0.2-1.0) H Urinalysis Test 07/07/25 01:20 Urine Color Colorless (Yellow) Urine Clarity Clear (Clear) Urine pH 5.0 (5.0-9.0) Urine Specific [place] 1.002 (1.001-1.035) Urine Protein Negative (Negative) Urine Ketones Negative (Negative) Urine Blood Negative /uL (Negative) Urine Nitrite Negative (Negative) Urine Bilirubin Negative (Negative) Urine Urobilinogen Normal mg/dL (Negative) Urine Leukocyte Esterase Negative /uL (Negative) Urine RBC <1 /hpf (0 - 4) Urine Microscopic WBC < 1 /HPF (0-5) Urine Squamous Epithelial Cells Few /hpf (<5) Urine Bacteria None seen /hpf (None Seen) Urine Glucose 4+ mg/dL (Normal) H Labs and/or images reviewed: Labs reviewed by me, Image(s) reviewed by me Assessment/Plan Assessment/Plan 69F presents to the ER w/ prior Hx of Pre-DM, HFrEF, hypothyroidism, history NSVTs, HTN and pacemaker. Patient was seen here earlier at the ER for palpitations. Patient does have history of AFib, does take her medications regularly, Eliquis, metoprolol. With the past week she has been experiencing palpitations that involves her left chest and left abdomen. Patient already has a loan service officer to follow up with. Diagnostics was done and discharged improved with instructions. At home, her pacemaker-defibrillator started firing up. Patient rushed out of her house to go seek help from neighbors, however she had a syncopal attack and fell to the ground. Patient states she passed out as paramedics came. She had about 5 episodes of the defibrillator firing up and another 5 with the paramedics. Patient was on Vtach, and was eventually given 81mg of lidocaine which stopped the defibrillator. Blood pressure on scene was 118/70 mmHg 07/08: Patient presented with feeling of discharge from AICD. We will get device check today. Patient's primary loan service officer is Dr. Pa, we will consult Dr. Pa for following. 07/09: Patient doing well, no AICD firing on tele monitoring. No symptoms, Dr. Pa made aware of multiple AICD shocks on 07/06., Currently on tele patient is being paste at rate of 80, patient has some few start stretches of NSVT. Longest duration of NSVT is about approximately 10 beats appearing multiple times through the day. 07/10: Patient continues to have short runs of NSVT, about a proximally 10-15 runs. I have contacted Cardiology multiple times. Patient not having anymore further discharges of AICD. No chest pain. She has right shoulder pain we will get x-ray today. Continue baclofen 10 mg b.i.d.. Cardiology has been made aware of patient's AICD report with multiple shocks and ongoing NSVT runs. - Discuss with Cardiology they want to start sotalol trial as multiple long runs of NSVT continue. Diagnosis: Defibrillator discharge Syncope Left knee pain RENZO on CKD HFrEF (EF 5%) Prediabetes History of thyroid dizzy History of hypertension Plan: cardiology consulted ACID check entresto, eliquis, amiodarone daily bmp Tele Full code Plan discussed with: Patient My Orders Orders - VIJI TAVERAS MD Procedure Category Date Status Time Baclofen Tablet PHA 07/09/25 In Process (Liorisal Tablet) 22:00 R Shoulder 1v Xray XY 07/10/25 Resulted 09:13 Date of Service: Jul 10, 2025 Billing Provider: VIJI TAVERAS MD Common Visit Codes: [id number] INP/OBS CARE(HIGH) VIJI TAVERAS MD Jul 10, 2025 11:58
--- NOTE | 2025-07-10 14:45 | CONS ---
Pharmacy Clinical Information: CHF Fallout 07/10/2025 From Heart Failure Fallout Report on CQM Application, Patient Daisy Frederick ([id number]). 69 YO F with PMH of CHF, CKD 3A, hypothyroidism, and Afib and is compliant to medication. She was BIBA due to experiencing palpitation, defibrillator discharge, and having had a syncopal attack. No acute cardiomegaly was seen on CXR, HFrEF with LVEF = 5%.No BNPonlabs. Home meds include Entresto 24-26 1 tab PO BID, Metoprolol Succinate 25 mg 1 tab PO BID, Spironolactone 25 mg daily PO, and dapagliflozin 10 mg PO daily. Inpatient meds include Entresto 24-26 1 tab PO BID, Metoprolol Succinate 25 mg 1 tab PO daily. Consider adding spironolactone 25 mg PO daily, and dapagliflozin 10 mg PO daily. No renal dose adjustment is needed for these medications as eGFR is currently 57. Monitor potassium (currently 4.7) when adding spironolactone. JULIENNE LEAVITT [facility] RESIDENT Jul 10, 2025 14:45
--- NOTE | 2025-07-10 16:33 | DVHPN2 ---
Progress Note - Dictate Date Seen: Jul 10, 2025 Medical Necessity Reason Pt with a Central, PICC or Fol: No Subjective Patient was seen and evaluated in follow up. Patient c/o right shoulder pain. WBC 14.5, VALIDATION ENGINEER 1.07, [place] 10.8. Right shoulder x-ray shows calcific tendinopathy of the supraspinatus tendon. Telemetry reviewed. vital signs Vital Sign Date Time Temp Pulse Resp B/P (MAP) Pulse Ox O2 Delivery O2 Flow Rate FiO2 07/10/25 09:34 83 116/53 07/10/25 08:38 98.1 18 95 98.1 07/10/25 08:00 Room Air* 0 21 Total Intake and Output 07/09/25 07/09/25 07/10/25 15:00 23:00 07:00 Intake Total 1100 ml 1000 ml Balance 1100 ml 1000 ml medications Current Medications Medications Dose Ordered Sig/Lexi Route Start Time Stop Time Status Last Admin Dose Admin Sodium Chloride 10 ml Q8HR IV 07/06/25 14:00 07/10/25 05:39 10 ML Docusate Sodium 100 mg BIDPRN PRN PO 07/06/25 08:45 07/09/25 09:20 100 MG Acetaminophen 650 mg Q6HP PRN PO 07/06/25 08:45 07/07/25 21:19 650 MG Acetaminophen/ Hydrocodone Bitart 1 tab Q4HP PRN PO 07/06/25 08:45 07/09/25 14:44 1 TAB Hydromorphone HCl 0.5 mg Q4HP PRN IV 07/06/25 08:45 Ondansetron HCl 4 mg Q4HP PRN IV 07/06/25 08:45 Nitroglycerin 0.4 mg Q5MINP PRN SL 07/06/25 08:45 Morphine Sulfate 2 mg Q30M PRN IV 07/06/25 08:45 Amiodarone HCl 400 mg BID PO 07/06/25 10:00 07/10/25 09:32 400 MG Apixaban 5 mg BID PO 07/06/25 10:00 07/10/25 09:32 5 MG Buspirone HCl 10 mg Q12HR PO 07/06/25 10:00 07/10/25 09:32 10 MG Metoprolol Tartrate 25 mg DAILY PO 07/06/25 10:00 Sacubitril/ Valsartan 1 tab BID PO 07/06/25 10:00 07/10/25 09:32 1 TAB Hydroxyzine Pamoate 25 mg Q8HPRN PRN PO 07/08/25 17:45 07/09/25 09:21 25 MG Baclofen 10 mg BID PO 07/09/25 22:00 07/10/25 09:31 10 MG objective GENERAL: Alert and oriented x 3. No acute distress. EYES: PERRL, EOMI. Anicteric. HENT: Moist mucous membranes. LUNGS: Clear to auscultation bilaterally. CARDIOVASCULAR: Regular rate and rhythm. ABDOMEN: Soft, nontender and nondistended. EXTREMITIES: No edema. NEUROLOGIC: No focal neurological deficits. SKIN: Warm, dry. laboratory and microbiology Laboratory Tests 07/10/25 06:37 Test 07/10/25 06:37 Range/Units Serum Glucose 118 H 74-106 mg/dL Problem List Defibrillator discharge. Syncope. Left knee pain. RENZO on CKD. Assessment/Plan Continued all current supportive medical care. Dilaudid for pain management. Amiodarone. Eliquis. Entresto. Nitro SL. Additional plan as per the hospital course. Dietary Evaluation Review Comments: Nutrition Recommendation: 1) Daljit 1 pk BID 2) Monitor PO intake, lab values, weight trend, and I/O Expected Outcomes/Goals: Wound to improve FU 3-5 days Plan discussed with: Patient DARSHAN LU MD Jul 10, 2025 12:44
[2025-07-10] MEDS ORDERED: SOTALOL HCL 80 MG TAB PO SCH (22:00)
[2025-07-11] VITALS (7 sets, daily range): BP systolic 93–112; BP diastolic 57–65; PULSE 70–74; RESP 16–18; TEMP 97.3–98.3; O2SAT 95–97
[2025-07-11 06:53] LABS: Hematocrit 37.2 % (36.0-46.0); Hemoglobin 12.6 g/dL (12.2-16.2); Mean Corpuscular Hemoglobin 32.3 pg (28.0-32.0); Mean Corpuscular Volume 95.5 fL (80.0-100.0); Nucleated Red Blood Cells % 0.2 %
[2025-07-11 07:08] LABS: Alanine Aminotransferase 17 U/L (7-40); Alkaline Phosphatase 78 U/L (46-116); Anion Gap 9 (5-15); BUN/Creatinine Ratio 16.8 (10.0-20.0); Blood Urea Nitrogen 16 mg/dL (9-23); Calcium 10.4 mg/dL (8.7-10.4); Carbon Dioxide 25 mmol/L (20-31); Chloride 104 mmol/L (98-107); Magnesium 2.1 mg/dL (1.6-2.6); Potassium 4.6 mmol/L (3.5-5.1); Sodium 138 mmol/L (136-145); Total Protein 7.4 g/dL (5.7-8.2)
[2025-07-11 07:09] LABS: Albumin 4.3 g/dL (3.2-4.8); Bilirubin, Total 0.9 mg/dL (0.2-1.0)
[2025-07-11 07:14] LABS: Glucose 119 mg/dL (74-106)
--- NOTE | 2025-07-11 09:30 | DVHPN2 ---
Reviewed: H&P Changes from previous H/P or p: No Changes General: Per HPI Objective Vitals Vital Signs Date Time Temp Pulse Resp B/P (MAP) Pulse Ox O2 Delivery O2 Flow Rate FiO2 07/11/25 05:00 97.8 74 18 106/57 (73) 95 97.8 07/10/25 20:20 Room Air* 0 21 Intake/Output Intake and Output 07/11/25 07:00 Intake Total 2800 ml Balance 2800 ml Intake Oral 2800 ml # Voids 8 General Appearance: Alert, Oriented X3 HEENT: Atraumatic Lungs: Clear to auscultation Cardiovascular: Regular rate, Normal S1, Normal S2 Abdomen: Normal bowel sounds Medications Current Medications Medications Dose Ordered Sig/Lexi Route Start Time Stop Time Status Last Admin Dose Admin Sodium Chloride 10 ml Q8HR IV 07/06/25 14:00 07/11/25 06:10 10 ML Docusate Sodium 100 mg BIDPRN PRN PO 07/06/25 08:45 07/09/25 09:20 100 MG Acetaminophen 650 mg Q6HP PRN PO 07/06/25 08:45 07/07/25 21:19 650 MG Acetaminophen/ Hydrocodone Bitart 1 tab Q4HP PRN PO 07/06/25 08:45 07/09/25 14:44 1 TAB Hydromorphone HCl 0.5 mg Q4HP PRN IV 07/06/25 08:45 Ondansetron HCl 4 mg Q4HP PRN IV 07/06/25 08:45 Nitroglycerin 0.4 mg Q5MINP PRN SL 07/06/25 08:45 Morphine Sulfate 2 mg Q30M PRN IV 07/06/25 08:45 Amiodarone HCl 400 mg BID PO 07/06/25 10:00 07/10/25 22:07 400 MG Apixaban 5 mg BID PO 07/06/25 10:00 07/10/25 22:07 5 MG Buspirone HCl 10 mg Q12HR PO 07/06/25 10:00 07/10/25 22:07 10 MG Metoprolol Tartrate 25 mg DAILY PO 07/06/25 10:00 Hold Sacubitril/ Valsartan 1 tab BID PO 07/06/25 10:00 07/10/25 22:07 1 TAB Hydroxyzine Pamoate 25 mg Q8HPRN PRN PO 07/08/25 17:45 07/09/25 09:21 25 MG Baclofen 10 mg BID PO 07/09/25 22:00 07/10/25 09:31 10 MG Sotalol HCl 80 mg Q12HR PO 07/10/25 22:00 Hold Laboratory Results Laboratory Tests 07/11/25 06:11 Chemistry Test 07/11/25 06:11 Albumin 4.3 g/dL (3.2-4.8) Calcium Level 10.4 mg/dL (8.7-10.4) Magnesium Level 2.1 mg/dL (1.6-2.6) Phosphorus Level 3.0 mg/dL (2.4-5.1) Total Protein 7.4 g/dL (5.7-8.2) LFT Test 07/11/25 06:11 Alanine Aminotransferase (ALT) 17 U/L (7-40) Alkaline Phosphatase 78 U/L (46-116) Aspartate Amino Transferase (AST) 21 U/L (13-40) Total Bilirubin 0.9 mg/dL (0.2-1.0) Urinalysis Test 07/07/25 01:20 Urine Color Colorless (Yellow) Urine Clarity Clear (Clear) Urine pH 5.0 (5.0-9.0) Urine Specific [place] 1.002 (1.001-1.035) Urine Protein Negative (Negative) Urine Ketones Negative (Negative) Urine Blood Negative /uL (Negative) Urine Nitrite Negative (Negative) Urine Bilirubin Negative (Negative) Urine Urobilinogen Normal mg/dL (Negative) Urine Leukocyte Esterase Negative /uL (Negative) Urine RBC <1 /hpf (0 - 4) Urine Microscopic WBC < 1 /HPF (0-5) Urine Squamous Epithelial Cells Few /hpf (<5) Urine Bacteria None seen /hpf (None Seen) Urine Glucose 4+ mg/dL (Normal) H Labs and/or images reviewed: Labs reviewed by me, Image(s) reviewed by me Assessment/Plan Assessment/Plan 69F presents to the ER w/ prior Hx of Pre-DM, HFrEF, hypothyroidism, history NSVTs, HTN and pacemaker. Patient was seen here earlier at the ER for palpitations. Patient does have history of AFib, does take her medications regularly, Eliquis, metoprolol. With the past week she has been experiencing palpitations that involves her left chest and left abdomen. Patient already has a marine engineer to follow up with. Diagnostics was done and discharged improved with instructions. At home, her pacemaker-defibrillator started firing up. Patient rushed out of her house to go seek help from neighbors, however she had a syncopal attack and fell to the ground. Patient states she passed out as paramedics came. She had about 5 episodes of the defibrillator firing up and another 5 with the paramedics. Patient was on Vtach, and was eventually given 81mg of lidocaine which stopped the defibrillator. Blood pressure on scene was 118/70 mmHg 07/08: Patient presented with feeling of discharge from AICD. We will get device check today. Patient's primary marine engineer is Dr. Pa, we will consult Dr. Pa for following. 07/09: Patient doing well, no AICD firing on tele monitoring. No symptoms, Dr. Pa made aware of multiple AICD shocks on 07/06., Currently on tele patient is being paste at rate of 80, patient has some few start stretches of NSVT. Longest duration of NSVT is about approximately 10 beats appearing multiple times through the day. 07/10: Patient continues to have short runs of NSVT, about a proximally 10-15 runs. I have contacted Cardiology multiple times. Patient not having anymore further discharges of AICD. No chest pain. She has right shoulder pain we will get x-ray today. Continue baclofen 10 mg b.i.d.. Cardiology has been made aware of patient's AICD report with multiple shocks and ongoing NSVT runs. - Discuss with Cardiology they want to start sotalol trial as multiple long runs of NSVT continue. 07/11: Sotalol was not given yesterday because motility was also being given. We will hold metoprolol and start sotalol 80 b.i.d.. Continue amiodarone 400. Appreciate Cardiology recommendations and following. Keep telemetry. We will get EKG b.i.d. to follow QT. Diagnosis: Defibrillator discharge Syncope Left knee pain RENZO on CKD HFrEF (EF 5%) Prediabetes History of thyroid dizzy History of hypertension Plan: cardiology consulted ACID check entresto, eliquis, amiodarone daily bmp Tele Full code Plan discussed with: Patient My Orders Orders - VIJI TAVERAS MD Procedure Category Date Status Time Sotalol Hcl (Betapace) PHA 07/10/25 In Process 22:00 Date of Service: Jul 11, 2025 Billing Provider: VIJI TAVERAS MD Common Visit Codes: [id number] INP/OBS CARE(HIGH) VIJI TAVERAS MD Jul 11, 2025 09:30
[2025-07-11] MEDS: SOTALOL HCL 80 MG TAB PO SCH (10:53)
--- NOTE | 2025-07-11 21:51 | DVHPN2 ---
Progress Note - Dictate Date Seen: Jul 11, 2025 Medical Necessity Reason Pt with a Central, PICC or Fol: No Subjective Patient was seen and evaluated in follow up. Patient c/o right shoulder pain. WBC 12. BS are WNL. Telemetry reviewed. vital signs Vital Sign Date Time Temp Pulse Resp B/P (MAP) Pulse Ox O2 Delivery O2 Flow Rate FiO2 07/11/25 10:53 73 104/61 07/11/25 09:00 98.3 17 97 98.3 07/10/25 20:20 Room Air* 0 21 Total Intake and Output 07/10/25 07/10/25 07/11/25 15:00 23:00 07:00 Intake Total 1200 ml 1600 ml Balance 1200 ml 1600 ml medications Current Medications Medications Dose Ordered Sig/Lexi Route Start Time Stop Time Status Last Admin Dose Admin Sodium Chloride 10 ml Q8HR IV 07/06/25 14:00 07/11/25 06:10 10 ML Docusate Sodium 100 mg BIDPRN PRN PO 07/06/25 08:45 07/09/25 09:20 100 MG Acetaminophen 650 mg Q6HP PRN PO 07/06/25 08:45 07/07/25 21:19 650 MG Acetaminophen/ Hydrocodone Bitart 1 tab Q4HP PRN PO 07/06/25 08:45 07/09/25 14:44 1 TAB Hydromorphone HCl 0.5 mg Q4HP PRN IV 07/06/25 08:45 Ondansetron HCl 4 mg Q4HP PRN IV 07/06/25 08:45 Nitroglycerin 0.4 mg Q5MINP PRN SL 07/06/25 08:45 Morphine Sulfate 2 mg Q30M PRN IV 07/06/25 08:45 Amiodarone HCl 400 mg BID PO 07/06/25 10:00 07/11/25 10:52 400 MG Apixaban 5 mg BID PO 07/06/25 10:00 07/11/25 10:53 5 MG Buspirone HCl 10 mg Q12HR PO 07/06/25 10:00 07/11/25 10:52 10 MG Sacubitril/ Valsartan 1 tab BID PO 07/06/25 10:00 07/11/25 10:52 1 TAB Hydroxyzine Pamoate 25 mg Q8HPRN PRN PO 07/08/25 17:45 07/09/25 09:21 25 MG Baclofen 10 mg BID PO 07/09/25 22:00 07/11/25 10:53 10 MG Sotalol HCl 80 mg Q12HR PO 07/10/25 22:00 Hold Sotalol HCl 80 mg Q12HR PO 07/11/25 10:00 07/11/25 10:53 80 MG objective GENERAL: Alert and oriented x 3. No acute distress. EYES: PERRL, EOMI. Anicteric. HENT: Moist mucous membranes. LUNGS: Clear to auscultation bilaterally. CARDIOVASCULAR: Regular rate and rhythm. ABDOMEN: Soft, nontender and nondistended. EXTREMITIES: No edema. NEUROLOGIC: No focal neurological deficits. SKIN: Warm, dry. laboratory and microbiology Laboratory Tests 07/11/25 06:11 Test 07/11/25 06:11 Range/Units Serum Glucose 119 H 74-106 mg/dL Problem List Defibrillator discharge. Syncope. Left knee pain. RENZO on CKD. Assessment/Plan Continued all current supportive medical care. Dilaudid for pain management. Amiodarone. Eliquis. Entresto. Nitro SL. Additional plan as per the hospital course. Dietary Evaluation Review Comments: Nutrition Recommendation: 1) Daljit 1 pk BID 2) Monitor PO intake, lab values, weight trend, and I/O Expected Outcomes/Goals: Wound to improve FU 3-5 days Plan discussed with: Patient DARSHAN LU MD Jul 11, 2025 11:48
[2025-07-12] VITALS (8 sets, daily range): BP systolic 92–111; BP diastolic 47–63; PULSE 50–93; RESP 16–18; TEMP 97–98; O2SAT 95–98
[2025-07-12 06:30] LABS: Anion Gap 8 (5-15); Carbon Dioxide 25 mmol/L (20-31); Chloride 103 mmol/L (98-107); Potassium 4.3 mmol/L (3.5-5.1)
[2025-07-12 06:35] LABS: Calcium 10.4 mg/dL (8.7-10.4); Sodium 136 mmol/L (136-145)
[2025-07-12 06:36] LABS: BUN/Creatinine Ratio 19.6 (10.0-20.0); Blood Urea Nitrogen 21 mg/dL (9-23)
[2025-07-12 06:38] LABS: Glucose 113 mg/dL (74-106)
--- NOTE | 2025-07-12 14:06 | DVHPN2 ---
Progress Note - Dictate Date Seen: Jul 12, 2025 Medical Necessity Reason Pt with a Central, PICC or Fol: No Subjective Patient was seen and evaluated in follow up. AICD report showed multiple shocks and ongoing NSVT runs. Patient started on Sotalol. Sotalol was not given yesterday as she received Metoprolol. Patient to be monitored on telemetry. Telemetry reviewed. vital signs Vital Sign Date Time Temp Pulse Resp B/P (MAP) Pulse Ox O2 Delivery O2 Flow Rate FiO2 07/12/25 11:03 72 107/66 07/12/25 09:00 97.7 17 98 97.7 07/11/25 20:00 Room Air* 0 21 Total Intake and Output 07/11/25 07/11/25 07/12/25 15:00 23:00 07:00 Intake Total 850 ml 500 ml Balance 850 ml 500 ml medications Current Medications Medications Dose Ordered Sig/Lexi Route Start Time Stop Time Status Last Admin Dose Admin Sodium Chloride 10 ml Q8HR IV 07/06/25 14:00 07/12/25 05:42 10 ML Docusate Sodium 100 mg BIDPRN PRN PO 07/06/25 08:45 07/09/25 09:20 100 MG Acetaminophen 650 mg Q6HP PRN PO 07/06/25 08:45 07/07/25 21:19 650 MG Acetaminophen/ Hydrocodone Bitart 1 tab Q4HP PRN PO 07/06/25 08:45 07/12/25 05:40 1 TAB Hydromorphone HCl 0.5 mg Q4HP PRN IV 07/06/25 08:45 Ondansetron HCl 4 mg Q4HP PRN IV 07/06/25 08:45 Nitroglycerin 0.4 mg Q5MINP PRN SL 07/06/25 08:45 Morphine Sulfate 2 mg Q30M PRN IV 07/06/25 08:45 Amiodarone HCl 400 mg BID PO 07/06/25 10:00 07/12/25 11:02 400 MG Apixaban 5 mg BID PO 07/06/25 10:00 07/12/25 11:03 5 MG Buspirone HCl 10 mg Q12HR PO 07/06/25 10:00 07/12/25 11:02 10 MG Sacubitril/ Valsartan 1 tab BID PO 07/06/25 10:00 07/12/25 11:03 1 TAB Hydroxyzine Pamoate 25 mg Q8HPRN PRN PO 07/08/25 17:45 07/09/25 09:21 25 MG Baclofen 10 mg BID PO 07/09/25 22:00 07/12/25 11:03 10 MG Sotalol HCl 80 mg Q12HR PO 07/10/25 22:00 Hold Sotalol HCl 80 mg Q12HR PO 07/11/25 10:00 07/12/25 11:03 80 MG objective GENERAL: Alert and oriented x 3. No acute distress. EYES: PERRL, EOMI. Anicteric. HENT: Moist mucous membranes. LUNGS: Clear to auscultation bilaterally. CARDIOVASCULAR: Regular rate and rhythm. ABDOMEN: Soft, nontender and nondistended. EXTREMITIES: No edema. NEUROLOGIC: No focal neurological deficits. SKIN: Warm, dry. laboratory and microbiology Laboratory Tests 07/12/25 05:30 07/11/25 06:11 Test 07/12/25 05:30 Range/Units Serum Glucose 113 H 74-106 mg/dL Problem List Defibrillator discharge. Syncope. Left knee pain. RENZO on CKD. Assessment/Plan Continued all current supportive medical care. Morphine and Dilaudid for pain management. Amiodarone. Eliquis. Entresto. Sotalol. Additional plan as per the hospital course. Dietary Evaluation Review Comments: Nutrition Recommendation: 1) Daljit 1 pk BID 2) Monitor PO intake, lab values, weight trend, and I/O Expected Outcomes/Goals: Wound to improve FU 3-5 days Plan discussed with: Patient DARSHAN LU MD Jul 12, 2025 12:23
--- NOTE | 2025-07-12 15:50 | DVHPN2 ---
Reviewed: H&P Changes from previous H/P or p: No Changes General: Per HPI Objective Vitals Vital Signs Date Time Temp Pulse Resp B/P (MAP) Pulse Ox O2 Delivery O2 Flow Rate FiO2 07/12/25 13:00 97.8 58 16 95/63 (74) 97 97.8 07/12/25 08:00 Room Air* 0 21 Intake/Output Intake and Output 07/12/25 07:00 Intake Total 1350 ml Balance 1350 ml Intake Oral 1350 ml # Voids 8 General Appearance: Alert, Oriented X3 HEENT: Atraumatic Lungs: Clear to auscultation Cardiovascular: Regular rate, Normal S1, Normal S2 Abdomen: Normal bowel sounds Medications Current Medications Medications Dose Ordered Sig/Lexi Route Start Time Stop Time Status Last Admin Dose Admin Sodium Chloride 10 ml Q8HR IV 07/06/25 14:00 07/12/25 05:42 10 ML Docusate Sodium 100 mg BIDPRN PRN PO 07/06/25 08:45 07/09/25 09:20 100 MG Acetaminophen 650 mg Q6HP PRN PO 07/06/25 08:45 07/07/25 21:19 650 MG Acetaminophen/ Hydrocodone Bitart 1 tab Q4HP PRN PO 07/06/25 08:45 07/12/25 05:40 1 TAB Hydromorphone HCl 0.5 mg Q4HP PRN IV 07/06/25 08:45 Ondansetron HCl 4 mg Q4HP PRN IV 07/06/25 08:45 Nitroglycerin 0.4 mg Q5MINP PRN SL 07/06/25 08:45 Morphine Sulfate 2 mg Q30M PRN IV 07/06/25 08:45 Amiodarone HCl 400 mg BID PO 07/06/25 10:00 07/12/25 11:02 400 MG Apixaban 5 mg BID PO 07/06/25 10:00 07/12/25 11:03 5 MG Buspirone HCl 10 mg Q12HR PO 07/06/25 10:00 07/12/25 11:02 10 MG Sacubitril/ Valsartan 1 tab BID PO 07/06/25 10:00 07/12/25 11:03 1 TAB Hydroxyzine Pamoate 25 mg Q8HPRN PRN PO 07/08/25 17:45 07/09/25 09:21 25 MG Baclofen 10 mg BID PO 07/09/25 22:00 07/12/25 11:03 10 MG Sotalol HCl 80 mg Q12HR PO 07/10/25 22:00 Hold Sotalol HCl 80 mg Q12HR PO 07/11/25 10:00 07/12/25 11:03 80 MG Laboratory Results Laboratory Tests 07/11/25 06:11 07/12/25 05:30 Chemistry Test 07/12/25 05:30 Calcium Level 10.4 mg/dL (8.7-10.4) Urinalysis Test 07/07/25 01:20 Urine Color Colorless (Yellow) Urine Clarity Clear (Clear) Urine pH 5.0 (5.0-9.0) Urine Specific [place] 1.002 (1.001-1.035) Urine Protein Negative (Negative) Urine Ketones Negative (Negative) Urine Blood Negative /uL (Negative) Urine Nitrite Negative (Negative) Urine Bilirubin Negative (Negative) Urine Urobilinogen Normal mg/dL (Negative) Urine Leukocyte Esterase Negative /uL (Negative) Urine RBC <1 /hpf (0 - 4) Urine Microscopic WBC < 1 /HPF (0-5) Urine Squamous Epithelial Cells Few /hpf (<5) Urine Bacteria None seen /hpf (None Seen) Urine Glucose 4+ mg/dL (Normal) H Labs and/or images reviewed: Labs reviewed by me, Image(s) reviewed by me Assessment/Plan Assessment/Plan 69F presents to the ER w/ prior Hx of Pre-DM, HFrEF, hypothyroidism, history NSVTs, HTN and pacemaker. Patient was seen here earlier at the ER for palpitations. Patient does have history of AFib, does take her medications regularly, Eliquis, metoprolol. With the past week she has been experiencing palpitations that involves her left chest and left abdomen. Patient already has a crop puller to follow up with. Diagnostics was done and discharged improved with instructions. At home, her pacemaker-defibrillator started firing up. Patient rushed out of her house to go seek help from neighbors, however she had a syncopal attack and fell to the ground. Patient states she passed out as paramedics came. She had about 5 episodes of the defibrillator firing up and another 5 with the paramedics. Patient was on Vtach, and was eventually given 81mg of lidocaine which stopped the defibrillator. Blood pressure on scene was 118/70 mmHg 07/08: Patient presented with feeling of discharge from AICD. We will get device check today. Patient's primary crop puller is Dr. Pa, we will consult Dr. Pa for following. 07/09: Patient doing well, no AICD firing on tele monitoring. No symptoms, Dr. Pa made aware of multiple AICD shocks on 07/06., Currently on tele patient is being paste at rate of 80, patient has some few start stretches of NSVT. Longest duration of NSVT is about approximately 10 beats appearing multiple times through the day. 07/10: Patient continues to have short runs of NSVT, about a proximally 10-15 runs. I have contacted Cardiology multiple times. Patient not having anymore further discharges of AICD. No chest pain. She has right shoulder pain we will get x-ray today. Continue baclofen 10 mg b.i.d.. Cardiology has been made aware of patient's AICD report with multiple shocks and ongoing NSVT runs. - Discuss with Cardiology they want to start sotalol trial as multiple long runs of NSVT continue. 07/11: Sotalol was not given yesterday because motility was also being given. We will hold metoprolol and start sotalol 80 b.i.d.. Continue amiodarone 400. Appreciate Cardiology recommendations and following. Keep telemetry. We will get EKG b.i.d. to follow QT. 07/12: Swallow was started yesterday, this a.m. QTC prior to giving sotalol is 530. [place] [facility] they want to hold off sotalol now. We will continue I am going to restart metoprolol. Diagnosis: Defibrillator discharge Syncope Left knee pain RENZO on CKD HFrEF (EF 5%) Prediabetes History of thyroid dizzy History of hypertension Plan: cardiology consulted ACID check entresto, eliquis, amiodarone Holding sotalol Amiodarone and metoprolol continue. daily bmp Tele Full code Plan discussed with: Patient Date of Service: Jul 12, 2025 Billing Provider: VIJI TAVERAS MD Common Visit Codes: [id number] INP/OBS CARE(HIGH) VIJI TAVERAS MD Jul 12, 2025 15:50
[2025-07-12] MEDS: METOPROLOL SUCCINATE XL 50 MG TAB PO SCH (17:34)
[2025-07-12] MEDS: ONDANSETRON HCL 4 MG/2 ML VIAL IV PRN (19:55)
[2025-07-13] VITALS (8 sets, daily range): BP systolic 98–109; BP diastolic 55–88; PULSE 50–78; RESP 16–22; TEMP 96.7–98.9; O2SAT 95–99
[2025-07-13 06:52] LABS: Anion Gap 10 (5-15); Carbon Dioxide 22 mmol/L (20-31); Chloride 101 mmol/L (98-107); Potassium 4.3 mmol/L (3.5-5.1)
[2025-07-13 06:53] LABS: Calcium 10.3 mg/dL (8.7-10.4)
[2025-07-13 06:58] LABS: BUN/Creatinine Ratio 18.2 (10.0-20.0); Blood Urea Nitrogen 20 mg/dL (9-23); Glucose 115 mg/dL (74-106); Sodium 133 mmol/L (136-145)
[2025-07-13] MEDS: SOTALOL HCL 80 MG TAB PO SCH (10:00)
--- NOTE | 2025-07-13 11:54 | DVHPN2 ---
Reviewed: H&P Changes from previous H/P or p: No Changes General: Per HPI Objective Vitals Vital Signs Date Time Temp Pulse Resp B/P (MAP) Pulse Ox O2 Delivery O2 Flow Rate FiO2 07/13/25 10:00 72 104/51 07/13/25 09:00 96.7 17 96 96.7 07/13/25 08:00 Room Air* 0 21 Intake/Output Intake and Output 07/13/25 07:00 Intake Total 2400 ml Balance 2400 ml Intake Oral 2400 ml # Voids 8 General Appearance: Alert, Oriented X3 HEENT: Atraumatic Lungs: Clear to auscultation Cardiovascular: Regular rate, Normal S1, Normal S2 Abdomen: Normal bowel sounds Medications Current Medications Medications Dose Ordered Sig/Lexi Route Start Time Stop Time Status Last Admin Dose Admin Sodium Chloride 10 ml Q8HR IV 07/06/25 14:00 07/13/25 04:50 10 ML Docusate Sodium 100 mg BIDPRN PRN PO 07/06/25 08:45 07/09/25 09:20 100 MG Acetaminophen 650 mg Q6HP PRN PO 07/06/25 08:45 07/07/25 21:19 650 MG Acetaminophen/ Hydrocodone Bitart 1 tab Q4HP PRN PO 07/06/25 08:45 07/12/25 05:40 1 TAB Hydromorphone HCl 0.5 mg Q4HP PRN IV 07/06/25 08:45 Ondansetron HCl 4 mg Q4HP PRN IV 07/06/25 08:45 07/12/25 19:55 4 MG Nitroglycerin 0.4 mg Q5MINP PRN SL 07/06/25 08:45 Morphine Sulfate 2 mg Q30M PRN IV 07/06/25 08:45 Amiodarone HCl 400 mg BID PO 07/06/25 10:00 07/13/25 10:15 400 MG Apixaban 5 mg BID PO 07/06/25 10:00 07/13/25 10:15 5 MG Sacubitril/ Valsartan 1 tab BID PO 07/06/25 10:00 07/13/25 10:14 1 TAB Hydroxyzine Pamoate 25 mg Q8HPRN PRN PO 07/08/25 17:45 07/09/25 09:21 25 MG Baclofen 10 mg BID PO 07/09/25 22:00 07/13/25 10:15 10 MG Sotalol HCl 40 mg BID PO 07/13/25 10:00 Laboratory Results Laboratory Tests 07/11/25 06:11 07/13/25 05:08 Chemistry Test 07/13/25 05:08 Calcium Level 10.3 mg/dL (8.7-10.4) Urinalysis Test 07/07/25 01:20 Urine Color Colorless (Yellow) Urine Clarity Clear (Clear) Urine pH 5.0 (5.0-9.0) Urine Specific [place] 1.002 (1.001-1.035) Urine Protein Negative (Negative) Urine Ketones Negative (Negative) Urine Blood Negative /uL (Negative) Urine Nitrite Negative (Negative) Urine Bilirubin Negative (Negative) Urine Urobilinogen Normal mg/dL (Negative) Urine Leukocyte Esterase Negative /uL (Negative) Urine RBC <1 /hpf (0 - 4) Urine Microscopic WBC < 1 /HPF (0-5) Urine Squamous Epithelial Cells Few /hpf (<5) Urine Bacteria None seen /hpf (None Seen) Urine Glucose 4+ mg/dL (Normal) H Labs and/or images reviewed: Labs reviewed by me, Image(s) reviewed by me Assessment/Plan Assessment/Plan 69F presents to the ER w/ prior Hx of Pre-DM, HFrEF, hypothyroidism, history NSVTs, HTN and pacemaker. Patient was seen here earlier at the ER for palpitations. Patient does have history of AFib, does take her medications regularly, Eliquis, metoprolol. With the past week she has been experiencing palpitations that involves her left chest and left abdomen. Patient already has a director of medical services to follow up with. Diagnostics was done and discharged improved with instructions. At home, her pacemaker-defibrillator started firing up. Patient rushed out of her house to go seek help from neighbors, however she had a syncopal attack and fell to the ground. Patient states she passed out as paramedics came. She had about 5 episodes of the defibrillator firing up and another 5 with the paramedics. Patient was on Vtach, and was eventually given 81mg of lidocaine which stopped the defibrillator. Blood pressure on scene was 118/70 mmHg 07/08: Patient presented with feeling of discharge from AICD. We will get device check today. Patient's primary director of medical services is Dr. Pa, we will consult Dr. Pa for following. 07/09: Patient doing well, no AICD firing on tele monitoring. No symptoms, Dr. Pa made aware of multiple AICD shocks on 07/06., Currently on tele patient is being paste at rate of 80, patient has some few start stretches of NSVT. Longest duration of NSVT is about approximately 10 beats appearing multiple times through the day. 07/10: Patient continues to have short runs of NSVT, about a proximally 10-15 runs. I have contacted Cardiology multiple times. Patient not having anymore further discharges of AICD. No chest pain. She has right shoulder pain we will get x-ray today. Continue baclofen 10 mg b.i.d.. Cardiology has been made aware of patient's AICD report with multiple shocks and ongoing NSVT runs. - Discuss with Cardiology they want to start sotalol trial as multiple long runs of NSVT continue. 07/11: Sotalol was not given yesterday because motility was also being given. We will hold metoprolol and start sotalol 80 b.i.d.. Continue amiodarone 400. Appreciate Cardiology recommendations and following. Keep telemetry. We will get EKG b.i.d. to follow QT. 07/12: Swallow was started yesterday, this a.m. QTC prior to giving sotalol is 530. [place] [facility] they want to hold off sotalol now. We will continue I am going to restart metoprolol. Likely QTC prolongation, it was same as prior to transfer up to the floors. Possible QT also could be prolonged from pacemaker. We will start sotalol again since it has significantly helped reduce NSVT, we will we will do lowest dose. Sotalol 40 mg b.i.d. p.o. 07/13: We will monitor for another 24 hours on sotalol. If patient remains stable we will discharge to go and follow up with primary director of medical services. Diagnosis: Defibrillator discharge Syncope Left knee pain RENZO on CKD HFrEF (EF 5%) Prediabetes History of thyroid dizzy History of hypertension Plan: cardiology consulted ACID check entresto, eliquis, amiodarone Holding sotalol Amiodarone and metoprolol continue. daily bmp Tele Full code Plan discussed with: Patient My Orders Orders - VIJI TAVERAS MD Procedure Category Date Status Time Sotalol Hcl (Betapace) PHA 07/13/25 In Process 10:00 Date of Service: Jul 13, 2025 Billing Provider: VIJI TAVERAS MD Common Visit Codes: [id number] INP/OBS CARE(HIGH) VIJI TAVERAS MD Jul 13, 2025 11:54
[2025-07-13] MEDS: SOTALOL HCL 80 MG TAB PO ONE (13:00)
--- NOTE | 2025-07-13 21:05 | ECG ---
[facility] Test Date: 2025-07-13 Test Time: 21:01:10 Pat Name: BEREKET GARCIA Department: Room: 0214T A Gender: F Bell Captain: herb : 1955 Requested By: VIJI ROTH Order Number: [id number] Reading MD: Edilson Cline Measurements Intervals [place] Rate: 78 P: 0 WA: 68 QRS: -75 QRSD: 183 T: 124 QT: 487 QTc: 555 Interpretive Statements A-V dual-paced complexes w/ some inhibition No further analysis attempted due to paced rhythm Electronically Signed On 07-14-2025 14:43:49 PST by Edilson Cline Please click the below link to view image of tracing.
--- NOTE | 2025-07-13 21:20 | DVHPN2 ---
Progress Note - Dictate Date Seen: Jul 13, 2025 Medical Necessity Reason Pt with a Central, PICC or Fol: No Subjective Patient was seen and evaluated in follow up. Patient complains of generalized discomfort. PATTERN CHECKER 1.10. Telemetry reviewed. vital signs Vital Sign Date Time Temp Pulse Resp B/P (MAP) Pulse Ox O2 Delivery O2 Flow Rate FiO2 07/13/25 10:00 72 104/51 07/13/25 09:00 96.7 17 96 96.7 07/12/25 20:00 Room Air* 0 21 Total Intake and Output 07/12/25 07/12/25 07/13/25 15:00 23:00 07:00 Intake Total 800 ml 1600 ml Balance 800 ml 1600 ml medications Current Medications Medications Dose Ordered Sig/Lexi Route Start Time Stop Time Status Last Admin Dose Admin Sodium Chloride 10 ml Q8HR IV 07/06/25 14:00 07/13/25 04:50 10 ML Docusate Sodium 100 mg BIDPRN PRN PO 07/06/25 08:45 07/09/25 09:20 100 MG Acetaminophen 650 mg Q6HP PRN PO 07/06/25 08:45 07/07/25 21:19 650 MG Acetaminophen/ Hydrocodone Bitart 1 tab Q4HP PRN PO 07/06/25 08:45 07/12/25 05:40 1 TAB Hydromorphone HCl 0.5 mg Q4HP PRN IV 07/06/25 08:45 Ondansetron HCl 4 mg Q4HP PRN IV 07/06/25 08:45 07/12/25 19:55 4 MG Nitroglycerin 0.4 mg Q5MINP PRN SL 07/06/25 08:45 Morphine Sulfate 2 mg Q30M PRN IV 07/06/25 08:45 Amiodarone HCl 400 mg BID PO 07/06/25 10:00 07/13/25 10:15 400 MG Apixaban 5 mg BID PO 07/06/25 10:00 07/13/25 10:15 5 MG Sacubitril/ Valsartan 1 tab BID PO 07/06/25 10:00 07/13/25 10:14 1 TAB Hydroxyzine Pamoate 25 mg Q8HPRN PRN PO 07/08/25 17:45 07/09/25 09:21 25 MG Baclofen 10 mg BID PO 07/09/25 22:00 07/13/25 10:15 10 MG Sotalol HCl 40 mg BID PO 07/13/25 10:00 objective GENERAL: Alert and oriented x 3. No acute distress. EYES: PERRL, EOMI. Anicteric. HENT: Moist mucous membranes. LUNGS: Clear to auscultation bilaterally. CARDIOVASCULAR: Regular rate and rhythm. ABDOMEN: Soft, nontender and nondistended. EXTREMITIES: No edema. NEUROLOGIC: No focal neurological deficits. SKIN: Warm, dry. laboratory and microbiology Laboratory Tests 07/13/25 05:08 07/11/25 06:11 Test 07/13/25 05:08 Range/Units Serum Glucose 115 H 74-106 mg/dL Problem List Defibrillator discharge. Syncope. Left knee pain. RENZO on CKD. HFrEF (EF 5%). Prediabetes. Hypertension. Assessment/Plan Continued all current supportive medical care. Morphine and Dilaudid for pain management. Amiodarone. Eliquis. Entresto. Additional plan as per the hospital course. Dietary Evaluation Review Comments: Nutrition Recommendation: 1) Daljit 1 pk BID 2) Monitor PO intake, lab values, weight trend, and I/O Expected Outcomes/Goals: Wound to improve FU 3-5 days Plan discussed with: Patient DARSHAN LU MD Jul 13, 2025 11:22
[2025-07-14] VITALS (7 sets, daily range): BP systolic 94–107; BP diastolic 55–67; PULSE 68–78; RESP 14–20; TEMP 35.9; O2SAT 95–100
[2025-07-14 06:54] LABS: Calcium 10.3 mg/dL (8.7-10.4); Carbon Dioxide 23 mmol/L (20-31); Chloride 101 mmol/L (98-107); Potassium 4.5 mmol/L (3.5-5.1)
[2025-07-14 06:59] LABS: BUN/Creatinine Ratio 17.3 (10.0-20.0); Blood Urea Nitrogen 18 mg/dL (9-23)
[2025-07-14 07:00] LABS: Magnesium 2.3 mg/dL (1.6-2.6)
[2025-07-14 07:02] LABS: Glucose 108 mg/dL (74-106)
[2025-07-14 08:14] LABS: Anion Gap 10 (5-15); Sodium 134 mmol/L (136-145)
[2025-07-14] MEDS: METOPROLOL SUCCINATE XL 50 MG TAB PO ONE (10:45)
[2025-07-14] MEDS: POLYETHYLENE GLYCOL 17 GM PWDR PO ONE (10:45)
--- NOTE | 2025-07-14 10:54 | DVHDS2 ---
Discharge Summary Date of Admission Jul 06, 2025 at 08:39 Date of Discharge: Jul 14, 2025 Labs/Diagnostic Data: Laboratory Results Test 07/14/25 04:49 07/11/25 06:11 07/07/25 01:20 07/06/25 06:39 Sodium Level 134 mmol/L (136-145) Potassium Level 4.5 mmol/L (3.5-5.1) Chloride Level 101 mmol/L (98-107) Carbon Dioxide Level 23 mmol/L (20-31) Anion Gap 10 (5-15) Blood Urea Nitrogen 18 mg/dL (9-23) Creatinine 1.04 mg/dL (0.550-1.02) Glomerular Filtration Rate Calc 59 mL/min (>90) BUN/Creatinine Ratio 17.3 (10.0-20.0) Serum Glucose 108 mg/dL (74-106) Calcium Level 10.3 mg/dL (8.7-10.4) Phosphorus Level 2.6 mg/dL (2.4-5.1) Magnesium Level 2.3 mg/dL (1.6-2.6) White Blood Count 12.0 10^3/uL (4.4-10.8) Red Blood Count 3.89 10^6/uL (4.0-5.20) Hemoglobin 12.6 g/dL (12.2-16.2) Hematocrit 37.2 % (36.0-46.0) Mean Corpuscular Volume 95.5 fL (80.0-100.0) Mean Corpuscular Hemoglobin 32.3 pg (28.0-32.0) Mean Corpuscular Hemoglobin Concent 33.9 g/dL (32.0-36.0) Red Cell Distribution Width 14.7 % (11.8-14.3) Platelet Count 197 10^3/uL (140-450) Mean Platelet Volume 10.6 fL (6.9-10.8) Neutrophils (%) (Auto) 73.4 % (37.0-80.0) Lymphocytes (%) (Auto) 16.7 % (10.0-50.0) Monocytes (%) (Auto) 8.5 % (0.0-12.0) Eosinophils (%) (Auto) 1.1 % (0.0-7.0) Basophils (%) (Auto) 0.3 % (0.0-2.0) Neutrophils # (Auto) 8.8 10 ^3/uL (1.6-8.6) Lymphocytes # (Auto) 2.0 10 ^3/uL (0.4-5.4) Monocytes # (Auto) 1.0 10 ^3/uL (0-1.3) Eosinophils # (Auto) 0.1 10 ^3/uL (0-0.8) Basophils # (Auto) 0 10 ^3/uL (0-0.2) Nucleated Red Blood Cells 0.2 % Total Bilirubin 0.9 mg/dL (0.2-1.0) Aspartate Amino Transferase (AST) 21 U/L (13-40) Alanine Aminotransferase (ALT) 17 U/L (7-40) Alkaline Phosphatase 78 U/L (46-116) Total Protein 7.4 g/dL (5.7-8.2) Albumin 4.3 g/dL (3.2-4.8) Urine Color Colorless (Yellow) Urine Clarity Clear (Clear) Urine pH 5.0 (5.0-9.0) Urine Specific [place] 1.002 (1.001-1.035) Urine Protein Negative (Negative) Urine Ketones Negative (Negative) Urine Blood Negative /uL (Negative) Urine Nitrite Negative (Negative) Urine Bilirubin Negative (Negative) Urine Urobilinogen Normal mg/dL (Negative) Urine Leukocyte Esterase Negative /uL (Negative) Urine RBC <1 /hpf (0 - 4) Urine Microscopic WBC < 1 /HPF (0-5) Urine Squamous Epithelial Cells Few /hpf (<5) Urine Bacteria None seen /hpf (None Seen) Urine Glucose 4+ mg/dL (Normal) Troponin I High Sensitivity 162 ng/L (</=34) Other Laboratory Tests 07/14/25 04:49 07/11/25 06:11 Brief Hx & Hospital Course: 69F presents to the ER w/ prior Hx of Pre-DM, HFrEF, hypothyroidism, history NSVTs, HTN and pacemaker. Patient was seen here earlier at the ER for palpitations. Patient does have history of AFib, does take her medications regularly, Eliquis, metoprolol. With the past week she has been experiencing palpitations that involves her left chest and left abdomen. Patient already has a restaurant hospitality manager to follow up with. Diagnostics was done and discharged improved with instructions. At home, her pacemaker-defibrillator started firing up. Patient rushed out of her house to go seek help from neighbors, however she had a syncopal attack and fell to the ground. Patient states she passed out as paramedics came. She had about 5 episodes of the defibrillator firing up and another 5 with the paramedics. Patient was on Vtach, and was eventually given 81mg of lidocaine which stopped the defibrillator. Blood pressure on scene was 118/70 mmHg 07/08: Patient presented with feeling of discharge from AICD. We will get device check today. Patient's primary restaurant hospitality manager is Dr. Pa, we will consult Dr. Pa for following. 07/09: Patient doing well, no AICD firing on tele monitoring. No symptoms, Dr. Pa made aware of multiple AICD shocks on 07/06., Currently on tele patient is being paste at rate of 80, patient has some few start stretches of NSVT. Longest duration of NSVT is about approximately 10 beats appearing multiple times through the day. 07/10: Patient continues to have short runs of NSVT, about a proximally 10-15 runs. I have contacted Cardiology multiple times. Patient not having anymore further discharges of AICD. No chest pain. She has right shoulder pain we will get x-ray today. Continue baclofen 10 mg b.i.d.. Cardiology has been made aware of patient's AICD report with multiple shocks and ongoing NSVT runs. - Discuss with Cardiology they want to start sotalol trial as multiple long runs of NSVT continue. 07/11: Sotalol was not given yesterday because motility was also being given. We will hold metoprolol and start sotalol 80 b.i.d.. Continue amiodarone 400. Appreciate Cardiology recommendations and following. Keep telemetry. We will get EKG b.i.d. to follow QT. 07/12: Swallow was started yesterday, this a.m. QTC prior to giving sotalol is 530. [place] [facility] they want to hold off sotalol now. We will continue I am going to restart metoprolol. Likely QTC prolongation, it was same as prior to transfer up to the floors. Possible QT also could be prolonged from pacemaker. We will start sotalol again since it has significantly helped reduce NSVT, we will we will do lowest dose. Sotalol 40 mg b.i.d. p.o. 07/13: We will monitor for another 24 hours on sotalol. If patient remains stable we will discharge to go and follow up with primary restaurant hospitality manager. 07/14: Yesterday patient on low-dose sotalol, cardiology has discontinued that. Of note manual calculation of QTC results in QTC being 430- 450, computers counseling is 550, computers inaccurate, we will be safe to use sotalol. EKG continues to have QTC in the 500s range low 500s. Patient is no longer having any NSVT he has, no further discharge or firing of AICD. We will continue home dose amiodarone and restart metoprolol 25 XL. No further changes recommended from Cardiology over the last 4 days, no IV medications, stable for discharge. Diagnosis: Multiple/recurrent AICD Defibrillator discharges, confirmed with interrogation , due to sustained V-tach Recurrent NSVT, resolving QT prolongation possible, upper limit of normal Calcific tendinopathy, right shoulder, supraspinatus tendon Syncope , unable to rule out, possible due to above Left knee pain, chronic Right shoulder pain, likely due to above RENZO on CKD HFrEF (EF 5%), chronic, no acute exacerbation Prediabetes History of thyroid dizzy History of hypertension Plan: - Continue home medications (continue amiodarone 400 mg daily, Eliquis5 mg twice daily, Farxiga, metoprolol XL25 mg daily, Entresto 24/261 tablet twice daily, [id number] mg daily,) - Follow up with Cardiology1 week - DC clinic 1 week - PCP follow up 1 week Condition at Discharge: Guarded Final Diagnosis/Problems List Multiple/recurrent AICD Defibrillator discharges, confirmed with interrogation , due to sustained V-tach Recurrent NSVT, resolving QT prolongation possible, upper limit of normal Calcific tendinopathy, right shoulder, supraspinatus tendon Syncope , unable to rule out, possible due to above Left knee pain, chronic Right shoulder pain, likely due to above RENZO on CKD HFrEF (EF 5%), chronic, no acute exacerbation Prediabetes History of thyroid dizzy History of hypertension Discharge Disposition: Home Discharge Instruct/Medications Scheduled Amiodarone Hcl (Amiodarone Hcl), 400 MG PO BID Apixaban Base (Eliquis), 5 MG PO BID, (Reported) Buspirone Hcl (Buspirone Hcl), 1 TAB PO BID, (Reported) Dapagliflozin Propanediol (Farxiga), 5 MG PO DAILY, (Reported) Fluticasone Propionate (Nasal) (Fluticasone Propionate), 1 SPRAY ABDOUL BID, (Reported) Hydroxyzine Pamoate (Hydroxyzine Pamoate), 1 CAP PO TID, (Reported) Metoprolol Succinate (Metoprolol Succinate Er), 1 TAB PO BID, (Reported) Sacubitril-Valsartan (Entresto 24-26 mg), 1 TAB PO BID, (Reported) Spironolactone (Spironolactone), 1 TAB PO DAILY, (Reported) Valsartan (Valsartan), 20 MG PO BID, (Reported) Discharge Statement: "Patient was advised to return to the ER or call 911 if any headaches, dizziness, shortness of breath, chest pain, abdominal pain, bleeding, fevers, or worsening of medical condition. Patient was counseled about treatment plan, medications, possible side effects, patientverbalized understanding. All questions were answered to the best of my ability. This discharge took greater then 30 minutes in planning, reviewing documentation, counseling the patient, and discussing with other team members." ASSESSMENT ASSESSMENT Assessment Date of Service: Jul 14, 2025 Billing Provider: VIJI TAVERAS MD Common Visit Codes: 22524-BQP/OBS DISCH DAY >30min VIJI TAVERAS MD Jul 14, 2025 10:54
[2025-07-14] MEDS ORDERED: POLYETHYLENE GLYCOL 17 GM PWDR ONE (11:19)
[2025-07-14] MEDS ORDERED: METOPROLOL TARTRATE 25 MG TAB ONE (11:19)
--- NOTE | 2025-07-14 13:31 | ECG ---
[facility] Test Date: 2025-07-12 Test Time: 10:04:09 Pat Name: BEREKET GARCIA Department: Respiratoy Room: 0214T A Gender: F Head Greenskeeper: BRIAN : 1955 Requested By: BRITTNY TREVIÑO Order Number: [id number] Reading MD: Edilson Cline Measurements Intervals [place] Rate: 66 P: 28 MI: 96 QRS: -73 QRSD: 194 T: 140 QT: 505 QTc: 530 Interpretive Statements Atrial-ventricular dual-paced complexes No further analysis attempted due to paced rhythm Electronically Signed On 07-14-2025 14:43:19 PST by Edilson Cline Please click the below link to view image of tracing.
--- NOTE | 2025-07-14 18:37 | DVHPN2 ---
Progress Note - Dictate Date Seen: Jul 14, 2025 Medical Necessity Reason Pt with a Central, PICC or Fol: No Subjective Patient was seen and evaluated in follow up. No overnight events. Patient complains of generalized body aches. NA 134, PAEDIATRIC PHYSIOTHERAPIST 1.04. Telemetry reviewed. vital signs Vital Sign Date Time Temp Pulse Resp B/P (MAP) Pulse Ox O2 Delivery O2 Flow Rate FiO2 07/14/25 13:00 96.7 71 20 103/59 (74) 97 96.7 07/14/25 08:00 Room Air* 0 21 Total Intake and Output 07/13/25 07/13/25 07/14/25 15:00 23:00 07:00 Intake Total 840 ml 525 ml Balance 840 ml 525 ml medications Current Medications Medications Dose Ordered Sig/Lexi Route Start Time Stop Time Status Last Admin Dose Admin Sodium Chloride 10 ml Q8HR IV 07/06/25 14:00 07/14/25 06:00 10 ML Acetaminophen 650 mg Q6HP PRN PO 07/06/25 08:45 07/07/25 21:19 650 MG Acetaminophen/ Hydrocodone Bitart 1 tab Q4HP PRN PO 07/06/25 08:45 07/12/25 05:40 1 TAB Hydromorphone HCl 0.5 mg Q4HP PRN IV 07/06/25 08:45 Ondansetron HCl 4 mg Q4HP PRN IV 07/06/25 08:45 07/12/25 19:55 4 MG Nitroglycerin 0.4 mg Q5MINP PRN SL 07/06/25 08:45 Morphine Sulfate 2 mg Q30M PRN IV 07/06/25 08:45 Amiodarone HCl 400 mg BID PO 07/06/25 10:00 07/14/25 09:41 400 MG Apixaban 5 mg BID PO 07/06/25 10:00 07/14/25 09:40 5 MG Sacubitril/ Valsartan 1 tab BID PO 07/06/25 10:00 07/13/25 21:43 1 TAB Hydroxyzine Pamoate 25 mg Q8HPRN PRN PO 07/08/25 17:45 07/09/25 09:21 25 MG Baclofen 10 mg BID PO 07/09/25 22:00 07/13/25 21:43 10 MG Docusate Sodium 100 mg BID PO 07/14/25 22:00 Polyethylene Glycol 17 gm DAILY PO 07/15/25 10:00 Metoprolol Succinate 25 mg DAILY PO 07/15/25 10:00 objective GENERAL: Alert and oriented x 3. No acute distress. EYES: PERRL, EOMI. Anicteric. HENT: Moist mucous membranes. LUNGS: Clear to auscultation bilaterally. CARDIOVASCULAR: Regular rate and rhythm. ABDOMEN: Soft, nontender and nondistended. EXTREMITIES: No edema. NEUROLOGIC: No focal neurological deficits. SKIN: Warm, dry. laboratory and microbiology Laboratory Tests 07/14/25 04:49 07/11/25 06:11 Test 07/14/25 04:49 Range/Units Serum Glucose 108 H 74-106 mg/dL Problem List Defibrillator discharge. Syncope. Left knee pain. RENZO on CKD. HFrEF (EF 5%). Prediabetes. Hypertension. Assessment/Plan Continued all current supportive medical care. Morphine and Dilaudid for pain management. Amiodarone. Eliquis. Metoprolol. Additional plan as per the hospital course. Dietary Evaluation Review Comments: Nutrition Recommendation: 1) Daljit 1 pk BID 2) Monitor PO intake, lab values, weight trend, and I/O Expected Outcomes/Goals: Wound to improve FU 3-5 days Plan discussed with: Patient DARSHAN LU MD Jul 14, 2025 13:24
[2025-07-14] MEDS ORDERED: DOCUSATE SOD 100 MG CAP PO SCH (22:00)
[2025-07-15] MEDS ORDERED: HYDR-4902 PO (09:18)
[2025-07-15] MEDS ORDERED: ZOFR4T PO (09:18)
[2025-07-15] MEDS ORDERED: BACL10TA PO (09:18)
[2025-07-15] MEDS ORDERED: FURO20TA3 PO (09:18)
[2025-07-15] MEDS ORDERED: POLYETHYLENE GLYCOL 17 GM PWDR PO SCH (10:00)
[2025-07-15] MEDS ORDERED: METOPROLOL SUCCINATE XL 50 MG TAB PO SCH (10:00)
--- NOTE | 2025-07-16 10:59 | ECG ---
[facility] Test Date: 2025-07-14 Test Time: 10:57:47 Pat Name: BEREKET GARCIA Department: Room: 0214T A Gender: F Product Handler: jimi : 1955 Requested By: VIJI ROTH Order Number: [id number] Reading MD: Edilson Cline Measurements Intervals [place] Rate: 72 P: 15 DE: 113 QRS: -72 QRSD: 183 T: 139 QT: 518 QTc: 568 Interpretive Statements Atrial-ventricular dual-paced complexes No further analysis attempted due to paced rhythm Electronically Signed On 07-17-2025 17:37:01 PST by Edilson Cline Please click the below link to view image of tracing.
== END 2025-07-14 20:30 | disposition home or self-care (01) | DRG 308 ==
LOC: ER 03:44 → EDBD 03:44 → OVERFLOW 08:39 → TELE-CENTR 18:48
PROVIDERS: ADMIT Student in an Organized Health Care Education/Training Program; ATTEND Student in an Organized Health Care Education/Training Program
PROC: 4B02XTZ Measurement of Cardiac Defibrillator, External Approach (ICD-10-PCS; principal; 2025-07-06)
DX: I47.20 Ventricular tachycardia, unspecified (principal); N17.0 Acute kidney failure with tubular necrosis; R65.11 Systemic inflammatory response syndrome (SIRS) of non-infectious origin with acute organ dysfunction; I50.22 Chronic systolic (congestive) heart failure; I13.0 Hypertensive heart and chronic kidney disease with heart failure and stage 1 through stage 4 chronic kidney disease, or unspecified chronic kidney disease; S09.90XA Unspecified injury of head, initial encounter; N18.31 Chronic kidney disease, stage 3a; E03.9 Hypothyroidism, unspecified; E11.22 Type 2 diabetes mellitus with diabetic chronic kidney disease; I48.91 Unspecified atrial fibrillation; F41.9 Anxiety disorder, unspecified; G89.29 Other chronic pain; S80.212A Abrasion, left knee, initial encounter; W19.XXXA Unspecified fall, initial encounter; Z79.899 Other long term (current) drug therapy; Z90.49 Acquired absence of other specified parts of digestive tract; Y93.89 Activity, other specified; Y92.89 Other specified places as the place of occurrence of the external cause; Y99.8 Other external cause status; Z95.810 Presence of automatic (implantable) cardiac defibrillator; Z80.3 Family history of malignant neoplasm of breast; Z83.3 Family history of diabetes mellitus; Z79.84 Long term (current) use of oral hypoglycemic drugs; Z45.02 Encounter for adjustment and management of automatic implantable cardiac defibrillator
CPT/HCPCS: 36415; 70450; 71045; 72125; 73020; 73562; 76775; 80048; 80053; 81001; 83735; 84100; 84484; 85025; 93005; 93306; 93886; 96365; 97163; 99291; G0378; J2405

== ENCOUNTER 2025-07-30 07:49 | Emergency (ER) | payer BC ==
[~2025-07-30] VITALS: Ht 152.4 cm; Wt 48.6 kg
[~2025-07-30 07:49] MED LIST changes: +BACL10TA PO; -BUSP10TA90 PO; -CIPR-173 PO; +DAPA1TAB4 PO; +FURO20TA3 PO; +HYDR-4902 PO; -MAGN400T40 PO; -METO25TA5 PO; -METR-344 PO; -PANT40TA2 PO; -VALS1TAB56 PO
--- NOTE | 2025-07-30 08:06 | ECG ---
[facility] Test Date: 2025-07-30 Test Time: 08:01:40 Pat Name: BEREKET GARCIA Department: ED Room: Gender: F Purse Framer: BRIA : 1955 Requested By: YANI HERRERA Order Number: [id number] Reading MD: Edilson Cline Measurements Intervals [place] Rate: 74 P: -57 CT: 216 QRS: 115 QRSD: 154 T: -59 QT: 490 QTc: 544 Interpretive Statements Atrial-ventricular dual-paced complexes No further analysis attempted due to paced rhythm Electronically Signed On 08-01-2025 19:27:11 PST by Edilson Cline Please click the below link to view image of tracing.
[2025-07-30 08:22] VITALS: TEMP 98.2
[2025-07-30 08:34] LABS: Hematocrit 40.9 % (36.0-46.0); Hemoglobin 13.6 g/dL (12.2-16.2); Mean Corpuscular Hemoglobin 32.1 pg (28.0-32.0); Mean Corpuscular Volume 96.5 fL (80.0-100.0); Nucleated Red Blood Cells % 0.1 %
--- NOTE | 2025-07-30 08:48 | DVH ---
CHEST RADIOGRAPH INDICATION: chest thumping TECHNIQUE: Single frontal view of the chest was obtained COMPARISON: XY CHEST PORTABLE on DOS: 07/06/25, XY CHEST XRAY 1 VIEW on DOS: 07/05/25, XY CHEST PORTABLE on DOS: 05/01/24, XY CHEST PORTABLE on DOS: 03/31/24, XY CHEST TWO VIEWS ROUTINE on DOS: 03/21/24 FINDINGS: Lines and Tubes: Left chest AICD Lungs: Clear Pleura: No effusion. No pneumothorax. Cardiomediastinal contours: Cardiomegaly Bones: Unremarkable IMPRESSION: No acute disease.
--- NOTE | 2025-07-30 08:59 | DVH ---
EXAM: CT CT AB PEL WO CON-NO ORAL OR IV History: r/o appy Comparison Study: CT CT AB PEL WO CON-NO ORAL OR IV on DOS: 04/28/24 TECHNIQUE: Multidetector spiral CT of the abdomen and pelvis was performed from lung bases to pubic symphysis. Imaging was performed without intravenous contrast. Coronal and sagittal multiplanar reformats were obtained from the axial data set by the technologist. Radiation Dose : 1. Abdomen/Pelvis: CTDIvol 5.09 mGy, DLP 3.92 mGy*cm. FINDINGS: Evaluation of vasculature and solid organs is limited due to lack of intravenous contrast use. Lung Bases: Lung bases are clear. Postsurgical changes in the heart. No pericardial effusion. Liver: The liver is normal in size. No focal lesions. Gallbladder and Biliary Tree: The gallbladder is surgically absent. No intrahepatic or extrahepatic biliary ductal dilatation. Spleen: Unremarkable Pancreas: The pancreas is grossly unremarkable. Adrenal Glands: Unremarkable Kidneys: Kidneys are unremarkable without calculi or hydronephrosis. GI tract: The stomach is grossly normal in appearance. No evidence of small bowel wall thickening or abnormal dilatation to suggest bowel obstruction. There is colonic diverticulosis without acute diverticulitis. There is normal appendix. Peritoneum/mesentery/retroperitoneum. No evidence of free intraperitoneal air. No ascites. No evidence of suspicious lymphadenopathy. Abdominal Wall: Unremarkable. Vasculature: The visualized abdominal aorta is normal in size and caliber. Evaluation of abdominal and pelvic vessels is limited due to lack of intravenous contrast. Urinary Bladder: Grossly unremarkable for degree of distention. Pelvic Organs: Unremarkable Musculoskeletal: No aggressive focal bony lesions, acute fractures or dislocation. Bilateral hip joint space narrowing and osteophyte formation. IMPRESSION: 1. No acute abdominal or pelvic findings. 2. Normal appendix. 3. Colonic diverticulosis without acute diverticulitis.
[2025-07-30 10:27] LABS: Chloride 105 mmol/L (98-107); Potassium 4.6 mmol/L (3.5-5.1); Sodium 141 mmol/L (136-145)
[2025-07-30 10:28] LABS: Anion Gap 10 (5-15); Carbon Dioxide 26 mmol/L (20-31)
[2025-07-30 10:33] LABS: BUN/Creatinine Ratio 16.2 (10.0-20.0)
[2025-07-30 10:42] LABS: Blood Urea Nitrogen 23 mg/dL (9-23); Calcium 10.8 mg/dL (8.7-10.4); Glucose 120 mg/dL (74-106)
[2025-07-30 10:44] VITALS: BP 130/59; RESP 16; O2SAT 97
[2025-07-30 11:23] VITALS: PULSE 68
--- NOTE | 2025-07-30 11:24 | ECG ---
[facility] Test Date: 2025-07-30 Test Time: 11:23:27 Pat Name: BEREKET GARCIA Department: ED Room: Gender: F Security Installer: BRIA : 1955 Requested By: YANI HERRERA Order Number: [id number] Reading MD: Edilson Cline Measurements Intervals [place] Rate: 68 P: -15 [place]: 162 QRS: -61 QRSD: 141 T: 155 QT: 611 QTc: 651 Interpretive Statements A-V dual-paced complexes w/ some inhibition No further analysis attempted due to paced rhythm Electronically Signed On 08-01-2025 19:45:35 PST by Edilson Cline Please click the below link to view image of tracing.
--- NOTE | 2025-07-30 11:38 | ED.PDOC ---
GI ASSESSMENT HPI Comments 70 y/o F, with PMHx of anxiety, HTN, and DM presents to the ED for CC of abdominal pain. Patient states, she has been experiencing RLQ abdominal pain x1day. Patient relays, having further associated symptoms of constipation and being unable to have a bowel movement in a coupe days. Patient denies nausea, vomiting, fever, or pain with ambulation. No other symptoms or modifying factors are present at this time. Chief Complaint: Abdominal Pain Time Seen by MD: 11:00 Primary Care Provider: AVINASH Reviewed Notes: Nurses Notes, Medications, Allergies Allergies: Coded Allergies: NO KNOWN ALLERGIES (Unverified , 03/21/24) Home Meds Active Scripts Ondansetron Odt 4MG Tab (ZOFRAN PO) 4 Mg Tb, 4 MG PO TIDP PRN, #30 TAB 0 Refills ODT TAB-DISSOLVE IN MOUTH, THEN SWALLOW Prov:VIJI TAVERAS MD 07/15/25 Baclofen (Baclofen) 10 Mg Tab, 10 MG PO TID PRN for 7 Days, #21 TAB 0 Refills Prov:VIJI TAVERAS MD 07/15/25 Furosemide (Furosemide) 20 Mg Tab, 1 TAB PO DAILY, #30 TAB 0 Refills Prov:VIJI TAVERAS MD 07/15/25 Hydrocodone-Acetaminophen (Hydrocodone Bitartrate/AC 5-325 mg) 1 Tab Tab, 1 TAB PO TIDP PRN for 7 Days, #21 TAB 0 Refills Prov:VIJI TAVERAS MD 07/15/25 Amiodarone Hcl (Amiodarone Hcl) 200 Mg Tab, 400 MG PO BID for 7 Days, #28 TAB Amiodarone 400 mg p.o. twice a day x7 days then 400 mg p.o. daily Prov:ROSA MARIA HIGGINBOTHAM [employer] HELPER 05/03/24 Reported Medications Fluticasone Propionate (Nasal) (Fluticasone Propionate) 50 Mcg/Act Spr, 1 SPRAY ABDOUL BID for 90 Days, #48 07/08/25 Spironolactone (Spironolactone) 25 Mg Tab, 1 TAB PO DAILY for 90 Days, #90 07/08/25 Metoprolol Succinate (Metoprolol Succinate Er) 25 Mg Tab, 1 TAB PO BID for 90 Days, #180 07/08/25 Dapagliflozin Propanediol (Farxiga) 10 Mg Tab, 5 MG PO DAILY for 30 Days, #30 07/08/25 Buspirone Hcl (Buspirone Hcl) 15 Mg Tab, 1 TAB PO BID for 30 Days, #60 07/08/25 Hydroxyzine Pamoate (Hydroxyzine Pamoate) 25 Mg Cap, 1 CAP PO TID for 30 Days, #90 07/08/25 Sacubitril-Valsartan (Entresto 24-26 mg) 1 Tab Tab, 1 TAB PO BID, TAB 03/22/24 Apixaban Base (ELIQUIS) 5 Mg Tab, 5 MG PO BID, TAB 03/22/24 Information Source: Patient Mode of Arrival: Ambulatory Timing: Days Duration: Since onset Prehospital treatment: None Vomitus: None Stool: Impaction Severity: Moderate Recent: None Recent Hx of: None Pain Location: RLQ Modifying Factors: Nothing Associated sign and symptoms: Abdominal Pain Past Medical History PAST MEDICAL HISTORY: AFIB, Anxiety, CHF, DM, HTN, Thyroid Surgical History: Cholecystectomy, Pacemaker [employer]LE[employer]OR History: Denies all [employer]LEPH[employer]OX COL[employer]OR Hx Family History Family History: Family hx of DM, Family hx of Cancer Social History Smoker: Non-Smoker Alcohol: Denies ETOH Use Drugs: Denies Drug Use Lives In: Home Constitutional: denies: chills, diaphoresis, fatigue, fever, malaise, sweats, weakness, others EENTM: denies: blurred vision, double vision, ear bleeding, ear discharge, ear drainage, ear pain, ear ringing, eye pain, eye redness, hearing loss, mouth pain, mouth swelling, nasal discharge, nose bleeding, nose congestion, nose pain, photophobia, tearing, throat pain, throat swelling, voice changes, others Respiratory: denies: cough, hemoptysis, orthopnea, SOB at rest, shortness of breath, SOB with excertion, stridor, wheezing, others Cardiovascular: denies: chest pain, dizzy spells, diaphoresis, Dyspnea on exertion, edema, irregular heart beat, left arm pain, lightheadedness, palpitations, PND, syncope, others Gastrointestinal: reports: abdominal pain; denies: abdomen distended, blood streaked bowels, constipated, diarrhea, dysphagia, difficulty swallowing, hematemesis, melena, nausea, poor appetite, poor fluid intake, rectal bleeding, rectal pain, vomiting, others Genitourinary: denies: abnormal vagina bleeding, burning, dyspareunia, dysuria, flank pain, frequency, hematuria, incontinence, pain, , vagina discharge, urgency, others Neurological: denies: dizziness, fainting, headache, left sided numbness, left sided weakness, numbness, paresthesia, pre-existing deficit, right sided numbne ss, right sided weakness, seizure, speech problems, tingling, tremors, weakness, others Musculoskeletal: denies: back pain, gout, joint pain, joint swelling, muscle pain, muscle stiffness, neck pain, others Integumetry: denies: bruises, change in color, change in hair/nails, dryness, laceration, lesions, lumps, rash, wounds, others Allergic/Immunocompromised: denies: Difficulty Healing, Frequent Infections, Hives, Itching, others Hematologic/Lymphatic: denies: anemia, blood clots, easy bleeding, easy bruising, swollen glands, others Endocrine: denies: excessive hunger, excessive sweating, excessive thirst, excessive urination, flushing, intolerance to cold, intolerance to heat, unexplained weight gain, unexplained weight loss, others Psychiatric: denies: anxiety, bipolar disorder, depression, hopeless, panic disorder, schizophrenia, sleepless, suicidal, others All Other Systems: Reviewed and Negative Physical Exam General Appearance: No Apparent Distress, Normal HEENT: Normal ENT Inspection, Pharynx Normal Neck: Full Range of Motion, Non-Tender, Normal, Normal Inspection Respiratory: Chest Non-Tender, Lungs Clear, No Accessory Muscle Use, No Respiratory Distress, Normal Breath Sounds Cardiovascular: No Edema, No Murmur, No Gallop, Normal Peripheral Pulses, Regular Rate/Rhythm Breast Exam: Deferred Gastrointestinal: No Organomegaly, Non Tender, No Pulsatile Mass, Normal Bowel Sounds, Soft Genitalia: Deferred Pelvic: Deferred Rectal: Deferred Extremities: No calf tenderness, Normal capillary refill, Normal inspection, Normal range of motion, Non-tender, No pedal edema Musculoskeletal : Apperance: Normal Neurologic: Alert, checker loader II-XII nml as Tested, No Motor Deficits, Normal Affect, Normal Mood, No Sensory Deficits Cerebellar Function: Normal Reflexes: Normal Skin: Dry, Normal Color, Warm Lymphatic: No Adenopathy Was a procedure done? Was a procedure done?: No GI differential Dx Differential Diagnosis: Cholangitis, Constipation, Gastritis/PUD, Gastroenteritis, Inflammatory BD, Bacterial, Viral X-Ray, Labs, Meds, VS Vital Signs Date Time Temp Pulse Resp B/P (MAP) Pulse Ox O2 Delivery O2 Flow Rate FiO2 07/30/25 11:23 68 07/30/25 10:44 77 16 130/59 (82) 97 07/30/25 08:22 99 17 100 Room Air 07/30/25 08:22 98.2 99 17 98/65 (76) 100 98.2 07/30/25 08:01 74 07/30/25 07:51 98.2 53 18 100/50 97 98.2 Lab Test 07/30/25 09:12 07/30/25 08:12 Range/Units Troponin I High Sensitivity 7 7 </=34 ng/L White Blood Count 12.9 H 4.4-10.8 10^3/uL Red Blood Count 4.23 4.0-5.20 10^6/uL Hemoglobin 13.6 12.2-16.2 g/dL Hematocrit 40.9 36.0-46.0 % Mean Corpuscular Volume 96.5 80.0-100.0 fL Mean Corpuscular Hemoglobin 32.1 H 28.0-32.0 pg Mean Corpuscular Hemoglobin Concent 33.3 32.0-36.0 g/dL Red Cell Distribution Width 15.0 H 11.8-14.3 % Platelet Count 286 140-450 10^3/uL Mean Platelet Volume 9.1 6.9-10.8 fL Neutrophils (%) (Auto) 75.6 37.0-80.0 % Lymphocytes (%) (Auto) 16.1 10.0-50.0 % Monocytes (%) (Auto) 7.1 0.0-12.0 % Eosinophils (%) (Auto) 1.0 0.0-7.0 % Basophils (%) (Auto) 0.2 0.0-2.0 % Neutrophils # (Auto) 9.7 H 1.6-8.6 10 ^3/uL Lymphocytes # (Auto) 2.1 0.4-5.4 10 ^3/uL Monocytes # (Auto) 0.9 0-1.3 10 ^3/uL Eosinophils # (Auto) 0.1 0-0.8 10 ^3/uL Basophils # (Auto) 0 0-0.2 10 ^3/uL Nucleated Red Blood Cells 0.1 % Sodium Level 141 136-145 mmol/L Potassium Level 4.6 3.5-5.1 mmol/L Chloride Level 105 98-107 mmol/L Carbon Dioxide Level 26 20-31 mmol/L Anion Gap 10 5-15 Blood Urea Nitrogen 23 9-23 mg/dL Creatinine 1.42 H 0.550-1.02 mg/dL Glomerular Filtration Rate Calc 40 >90 mL/min BUN/Creatinine Ratio 16.2 10.0-20.0 Serum Glucose 120 H 74-106 mg/dL Calcium Level 10.8 H 8.7-10.4 mg/dL B-Type Natriuretic Peptide 392.79 0-100 pg/mL Lipase 22 12-53 U/L X-Ray, Labs, Meds, VS Comment 70-year-old female here today with the complaints of abdominal pain as above. Vital signs stable, afebrile. Physical exam without any acute findings. Patient overall very well-appearing and in no distress. Labs reassuring and only notable for a mild RENZO which I informed the patient of and instructed her to follow up with the primary care doctor for for repeat labs. In the meantime instructed her to maintain good oral hydration and gave her strict return precautions for any signs of flank pain, difficulty or changes in her typical urination habits, dysuria, hematuria, nausea/vomiting, fevers/chills, or any other new or concerning symptoms. At time of my re-evaluation, patient's symptoms are totally improved after being informed that her laboratory testing and CT scan were unremarkable. No chest pain at any time. Patient was instructed to follow up with her primary care provider within 2-3 days for re- evaluation. Return precautions discussed. Patient expressed understanding. Patient was discharged in stable condition ambulating with a steady gait in no distress. Time of 1ST Reevaluation: 11:30 Reevaluation 1ST: Resolved Patient Education/Counseling: Diagnosis, Treatment Family Education/Counseling: No Family Present SEPSIS Sepsis Screen Date sepsis recognized/suspect: Jul 30, 2025 Time Sepsis recognized/suspect: 075 Recent Procedure: No On Antibiotic Therapy: No Respiratory Rate >20: No Heart Rate >90: No Temp<36 C (96.8 F) or >38.3 C: No SBP <90 or MAP <65 mmHG: No New Acute Mental Status Change: No Is the patient on CPAP, BIPAP,: No Physician Orders Chest Xray 1 View (07/30/25 08:01) Ct Ab Pel Wo Con-No Oral Or Iv (07/30/25 08:01) Electrocardigram (07/30/25 11:01) Vital Signs Date Time Temp Pulse Resp B/P (MAP) Pulse Ox O2 Delivery O2 Flow Rate FiO2 07/30/25 11:23 68 07/30/25 10:44 77 16 130/59 (82) 97 07/30/25 08:22 99 17 100 Room Air 07/30/25 08:22 98.2 99 17 98/65 (76) 100 98.2 07/30/25 08:01 74 07/30/25 07:51 98.2 53 18 100/50 97 98.2 Laboratory Tests Test 07/30/25 08:12 White Blood Count 12.9 10^3/uL (4.4-10.8) H Departure 1 Departure Time of Disposition: 11:50 Impression: Primary Impression: RENZO (acute kidney injury) Additional Impression: Abdominal pain Disposition: 01 HOME / SELF CARE / HOMELESS Condition: Stable Critical Care Note Critical Care Time?: No Stability Stability form required: No Heart Score Heart Score: Heart Score Response (Comments) Value History N/A 0 EKG N/A 0 Age N/A 0 Risk Factors N/A 0 Troponin N/A 0 Total 0 I personally scribed for YANI HERRERA MD ([email or web address]) on 07/30/25 at 11:38. Electronically submitted by Jaja Tee ([email or web address]). YANI HERRERA MD Jul 30, 2025 11:38
== END 2025-07-30 12:08 | disposition home or self-care (01) ==
LOC: ER 07:49
DX: I13.0 Hypertensive heart and chronic kidney disease with heart failure and stage 1 through stage 4 chronic kidney disease, or unspecified chronic kidney disease (principal); E11.22 Type 2 diabetes mellitus with diabetic chronic kidney disease; N18.9 Chronic kidney disease, unspecified; I50.9 Heart failure, unspecified; R10.31 Right lower quadrant pain; F41.9 Anxiety disorder, unspecified; I48.91 Unspecified atrial fibrillation; Z79.899 Other long term (current) drug therapy; Z95.0 Presence of cardiac pacemaker; Z90.49 Acquired absence of other specified parts of digestive tract; Z79.01 Long term (current) use of anticoagulants; Z79.84 Long term (current) use of oral hypoglycemic drugs
CPT/HCPCS: 36415; 71045; 74176; 80048; 83690; 83880; 84484; 85025; 93005